=== PATIENT | female | born 1965 | race Caucasian/White ===

== ENCOUNTER 2022-12-13 13:41 | Outpatient (OUT) | payer BC, SELFPAY ==
[2022-12-13 14:20] LABS: Basophils Percent Auto 0.5 % (0.2-2.0); Eosinophils Absolute Auto 0.1 10^3/uL (0.0-0.7); Eosinophils Percent Auto 1.8 % (0.9-7.0); Hematocrit 38.5 % (36.0-48.0); Hemoglobin 13.1 g/dL (12.0-16.0); Immature Granulocytes Abs Auto 0.02 10^3/uL (0.00-0.03); Immature Granulocytes Pct Auto 0.3 % (0.0-0.5); Lymphocytes Absolute Auto 2.2 10^3/uL (1.2-3.8); Lymphocytes Percent Auto 26.9 % (20.5-60.0); Mean Corpuscular Hemoglobin 31.5 pg (26.7-34.0); Mean Corpuscular Volume 92.5 fL (81.0-99.0); Mean Platelet Volume 9.8 fL (9.5-13.5); Monocytes Absolute Auto 0.6 10^3/uL (0.3-0.8); Monocytes Percent Auto 7.9 % (1.7-12.0); Neutrophils Percent Auto 62.6 % (43.0-75.0); Platelet Count 248 10^3/uL (150-450); Red Blood Count 4.16 10^6/uL (4.20-5.40); Red Cell Distribution Width 12.6 % (11.0-15.0)
[2022-12-13 14:48] LABS: Free T4 1.05 ng/dL (0.76-1.46)
[2022-12-13 14:55] LABS: Alanine Aminotransferase 28 U/L (14-59); Albumin Globulin Ratio 1.2; Albumin Level 3.8 g/dL (3.4-5.0); Alkaline Phosphatase 82 U/L (46-116); Anion Gap 10.5; Aspartate Amino Transferase 17 U/L (15-37); BUN Creatinine Ratio 15.5; Bilirubin Total 0.2 mg/dL (0.2-1.0); Calcium 8.7 mg/dL (8.5-10.1); Carbon Dioxide 29.4 mmol/L (21.0-32.0); Chloride 106 mmol/L (98-107); Chol HDL Ratio 4.4; Cholesterol 207 mg/dL (<=200); Estimated GFR (African America >60 (>=60); Estimated GFR (Non-African Ame >60 (>=60); Globulin 3.3 g/dL; Glucose 82 mg/dL (74-106); HDL Cholesterol 47 mg/dL (40-60); Potassium 3.9 mmol/L (3.5-5.1); Sodium 142 mmol/L (136-145); Thyroid Stimulating Hormone 4.375 uIU/mL (0.358-3.740); Total Protein 7.1 g/dL (6.4-8.2); Triglycerides 247 mg/dL (<=150); VLDL CHOLESTEROL 49.4 mg/dL
== END 2022-12-13 13:42 | disposition home or self-care (01) ==
LOC: LAB 13:48
PROVIDERS: PCP Nurse Practitioner; Visit Provider Nurse Practitioner
DX: R00.2 Palpitations (principal); E03.9 Hypothyroidism, unspecified; I10 Essential (primary) hypertension; E78.5 Hyperlipidemia, unspecified
CPT/HCPCS: 36415; 80053; 80061; 84439; 84443; 85025

== ENCOUNTER 2023-02-12 12:23 | Outpatient (OUT) | payer BC, SELFPAY ==
[2023-02-12 13:14] LABS: Free T4 1.06 ng/dL (0.76-1.46)
== END 2023-02-12 12:24 | disposition home or self-care (01) ==
LOC: LAB 12:23
PROVIDERS: PCP Nurse Practitioner; Visit Provider Nurse Practitioner
DX: E03.9 Hypothyroidism, unspecified (principal)
CPT/HCPCS: 36415; 84439; 84443

== ENCOUNTER 2023-02-22 12:23 | Outpatient (OUT) | payer BC, SELFPAY ==
[2023-02-22 13:05] LABS: Influenza Virus A Antigen Negative; Influenza Virus B Antigen Negative; Internal Control Within Normal Limits; Respiratory Syncytial Virus Not Detected (NOT DETECTE); SARS-CoV-2 Ag NEGATIVE (NEGATIVE)
[2023-02-22 13:06] LABS: Internal Control Within Normal Limits
[2023-02-22 16:17] LABS: SARS-CoV-2 NAA NOT DETECTED (NOT DETECTE)
== END 2023-02-22 12:24 | disposition home or self-care (01) ==
LOC: LAB 12:24
PROVIDERS: PCP Nurse Practitioner; Visit Provider Nurse Practitioner
DX: Z20.822 Contact with and (suspected) exposure to COVID-19 (principal); Z11.8 Encounter for screening for other infectious and parasitic diseases
CPT/HCPCS: 87420; 87635; 87798; 87804; 87811

== ENCOUNTER 2023-12-20 06:57 | Outpatient (OUT) | payer BC, SELFPAY ==
--- OUTSIDE RECORDS SUMMARY | 2023-12-20 07:01 | XMS_ITS | CCD ---
Author Organization [facility] JOB COACHING [facility] Care Team Providers Care Supervisor [employer]ting [employer] Sewing Room Name Role Phone REQUEST, IP OCCUPATIONAL THERAPY SERVICE Consult ing Unavailable LISA, JHONATAN Admitting Unavailable JHONATAN GONZALEZ Attending Unavailable PROVIDER, UNKNOWN Attending Unavailable PROVIDER, UNKNOWN Admitting Unavailable DISCHARGE, [facility] Referring Unavailab le PROVIDER, UNKNOWN Attending Unavailable PROVIDER, UNKNOWN Admitting Unavailable ROBERT SANTOYO Referring Unavailable ANISA HOPKINS Referring Unavailable TIMES, YUDY Meléndez Admitting Unavailable PROVIDER, UNKNOWN Attending Unavailable PROVIDER, UNKNOWN Admitting Unavailable PROVIDER, UNKNOWN Attending Unavailable TIMES, YUDY Meléndez Admitting Unavailable TIMES, YUDY Meléndez Attending Unavailable ROBERT SANTOYO Referring Unavailable PROVIDER, UNKNOWN Attending Unavailable PROVIDER, UNKNOWN Admitting Unavailable PROVIDER, UNKNOWN Attending Unavailable PROVIDER, UNKNOWN Admitting Unavailable PROVIDER, UNKNOWN Attending Unavailable PROVIDER, UNKNOWN Admitting Unavailable PROVIDER, UNKNOWN Attending Unavailable PROVIDER, UNKNOWN Admitting Unavailable PATIENT, SELF Referring Unavailable AICHHOLZ, GROUNDSKEEPER SUPERVISOR ANJEL Attending Unavailable AICHHOLZ, GROUNDSKEEPER SUPERVISOR ANJEL Consulting Unavailable AICHHOLZ, GROUNDSKEEPER SUPERVISOR ANJEL Primary Care Unavailable AICHHOLZ, GROUNDSKEEPER SUPERVISOR ANJEL Admitting Unavailable AICHHOLZ, GROUNDSKEEPER SUPERVISOR ANJEL Attending Unavailable AICHHOLZ, GROUNDSKEEPER SUPERVISOR ANJEL Consulting Unavailable AICHHOLZ, GROUNDSKEEPER SUPERVISOR ANJEL Primary Care Unavailable AICHHOLZ, GROUNDSKEEPER SUPERVISOR ANJEL Admitting Unavailable DR BISHNU VILLA V Consulting Unavailable AICHHOLZ, GROUNDSKEEPER SUPERVISOR ANJEL Primary Care Unavailable AICHHOLZ, GROUNDSKEEPER SUPERVISOR ANJEL Admitting Unavailable AICHHOLZ, GROUNDSKEEPER SUPERVISOR ANJEL Attending Unavailable AICHHOLZ, GROUNDSKEEPER SUPERVISOR ANJEL Consulting Unavailable Problems Active Problems Problem Classification Problem Date Documented Da te Episodic/Chronic Disorders of lipid metabolism (4 sources) Hyperlipidemia, unspecified; Translations: [HYPERLIPIDEMIA UNSPECIFIED] Onset: 02-18-2022 Chronic Essential hypertension (4 sources) Essential (primary) hypertension; Translations: [ESSENTIAL PRIMARY HYPERTENSION] Onset: 12-05-2021 Chronic Thyroid disorders (1 source) Hypothyroidism, unspecified; Translations: [HYPOTHYROIDISM UNSPECIFIED] Onset: 12-08-2021 Chronic Past or Other Problems Problem Classification Problem Date Documented Da te Episodic/Chronic Genitourinary symptoms and ill-defined conditions (4 sources) Dysuria; Translations: [DYSURIA] Onset: 10-14-2021 Episodic Results Test Name Value Interpretation Reference Range Facility LIPID PROFILEon 02-18-2022 CHOL-HDL RATIO NORM SEE BELOW Normal [facility] Comment on above: Result Comment: 3.3 - 4.4 LOW RISK 4.4 - 7.1 AVERAGE RISK 7.1 - 11.0 MODERATE RISK >11.0 HIGH RISK Performed By: #### A ST, LIPID, ALT #### [facility] [address], [place] [address] Dr. Tiffanie De Guzman Cholesterol [Mass/Vol] 199 mg/dL Normal <=200 [facility] Comment on above: Performed By: #### A ST, LIPID, ALT #### [facility] [address] [address] [address] Tiffanie De Guzman Cholesterol in HDL [Mass/Vol] 53 mg/dL Normal 40-60 [facility] Comment on above: Performed By: #### A ST, LIPID, ALT #### [facility] [address] [address] [address] Tiffanie De Guzman Cholesterol in LDL [Mass/Vol] 115.2 mg/dL Normal [facility] Comment on above: Performed By: #### A ST, LIPID, ALT #### [facility] [address], [place] [address] Dr. Tiffanie De Guzman Cholesterol.total/C holesterol in HDL [Mass ratio] 3.8 {ratio} Normal [facility] Comment on above: Performed By: #### A ST, LIPID, ALT #### [facility] [address], [place] [address] Dr. Tiffanie De Guzman HDL NORMAL > or = 60 mg/dl - LO W CARDIOVASCULAR RISK <40 mg/dl - HIGH CARDIOVASCULAR RISK Normal [facility] Comment on above: Performed By: #### A ST, LIPID, ALT #### [facility] [address] [id number] Tiffanie De Guzman LDL CALC NORMAL SEE BELOW Normal [facility] Comment on above: Result Comment: <100 mg/dl OPTIMAL 100 - 129 mg/dl NEAR OR ABOVE OPTIMAL 130 - 159 mg/dl BORDERLINE HIGH 160 - 189 mg/dl HIGH >190 mg/dl VERY HIGH Performed By: #### A ST, LIPID, ALT #### [facility] [address] [place] [address] Dr. Tiffanie De Guzman Triglyceride [Mass/Vol] 154 mg/dL Critically high <=150 [facility] Comment on above: Performed By: #### A ST, LIPID, ALT #### [facility] [address] [address] [address] Tiffanie De Guzman VLDL CALC 30.8 mg/dL Normal [facility] Comment on above: Performed By: #### A ST, LIPID, ALT #### [facility] [address] [place] [address] Dr. Tiffanie LEAOTon 02-18-2022 AST [Catalytic activity/Vol] 16 U/L Normal 15-37 [facility] Comment on above: Performed By: #### A ST, LIPID, ALT #### [facility] [address] [place] [address] Dr. [facility]-2022 ALT [Catalytic activity/Vol] 20 U/L Normal 14-59 [facility] Comment on above: Performed By: #### A ST, LIPID, ALT #### [facility] [address] [place] [address] Dr. Tiffanie De Guzman CBC AUTO DIFFon 12-05-2021 BASO # 0.0 103/ul Normal 0.0-0.1 [facility] Comment on above: Performed By: #### C BC #### [facility] [address] [place] [address] Dr. Tiffanie De Guzman Basophils/100 WBC (Bld) 0.6 % Normal 0.2-2.0 [facility] Comment on above: Performed By: #### C BC #### [facility] [address] [place] [address] Dr. Tiffanie De Guzman EO # 0.2 103/ul Normal 0.0-0.7 [facility] Comment on above: Performed By: #### C BC #### [facility] [address] [place] [address] Dr. Tiffanie De Guzman Eosinophils/100 WBC (Bld) 3.4 % Normal 0.9-7.0 [facility] Comment on above: Performed By: #### C BC #### [facility] [address] [place] [address] Dr. Tiffanie De Guzman Erythrocyte distribution width (RBC) [Ratio] 12.4 % Normal 11.0-15.0 [facility] Comment on above: Performed By: #### C BC #### [facility] [address] [place] [address] Dr. Tiffanie De Guzman Hematocrit (Bld) [Volume fraction] 39.8 % Normal 36.0-48.0 [facility] Comment on above: Performed By: #### C BC #### [facility] [address] [place] [address] Dr. Tiffanie De Guzman Hemoglobin (Bld) [Mass/Vol] 13.5 g/dL Normal 12.0-16.0 [facility] Comment on above: Performed By: #### C BC #### [facility] [address] [place] [address] Dr. Tiffanie De Guzman IG # 0.01 10e3/ul Normal 0.00-0.03 [facility] Comment on above: Performed By: #### C BC #### [facility] [address] [place] [address] Dr. Tiffanie De Guzman IG % 0.1 % Normal 0.0-0.5 [facility] Comment on above: Performed By: #### C BC #### [facility] [address] [place] [address] Dr. Tiffanie De Guzman LYMPH # 2.2 103/ul Normal 1.2-3.8 [facility] Comment on above: Performed By: #### C BC #### [facility] [address] [place] [address] Dr. Tiffanie De Guzman Lymphocytes/100 WBC (Bld) 30.2 % Normal 20.5-60.0 [facility] Comment on above: Performed By: #### C BC #### [facility] [address] [place] [address] Dr. Tiffanie De Guzman MANUAL DIFF REQ NO Normal [facility] Comment on above: Performed By: #### C BC #### [facility] [address] [place] [address] Dr. Tiffanie De Guzman MCH (RBC) [Entitic mass] 30.9 pg Normal 26.7-34.0 [facility] Comment on above: Performed By: #### C BC #### [facility] [address] [place] [address] Dr. Tiffanie De Guzman MCHC (RBC) [Mass/Vol] 33.9 g/dL Normal 29.9-35.2 [facility] Comment on above: Performed By: #### C BC #### [facility] [address] [place] [address] Dr. Tiffanie De Guzman MCV (RBC) [Entitic vol] 91.1 fL Normal 81.0-99.0 [facility] Comment on above: Performed By: #### C BC #### [facility] [address] [place] [address] Dr. Tiffanie De Guzman MONO # 0.7 103/ul Normal 0.3-0.8 [facility] Comment on above: Performed By: #### C BC #### [facility] [address] [place] [address] Dr. Tiffanie De Guzman Monocytes/100 WBC (Bld) 9.2 % Normal 1.7-12.0 [facility] Comment on above: Performed By: #### C BC #### [facility] [address] [place] [address] Dr. Tiffanie De Guzman NEUT # 4.1 103/ul Normal 1.4-6.5 [facility] Comment on above: Performed By: #### C BC #### [facility] [address] [place] [address] Dr. Tiffanie De Guzman Neutrophils/100 WBC (Bld) 56.5 % Normal 43.0-75.0 [facility] Comment on above: Performed By: #### C BC #### [facility] [address] [place] [address] Dr. Tiffanie De Guzman Platelet mean volume (Bld) [Entitic vol] 9.5 fL Normal 9.5-13.5 [facility] Comment on above: Performed By: #### C BC #### [facility] [address] [place] [address] Dr. Tiffanie De Guzman PLT 262 103/ul Normal 150-450 [facility] Comment on above: Performed By: #### C BC #### [facility] [address] [place] [address] Dr. Tiffanie De Guzman RBC 4.37 106/ul Normal 4.20-5.40 [facility] Comment on above: Performed By: #### C BC #### [facility] [address] [place] [address] Dr. Tiffanie De Guzman WBC 7.2 103/ul Normal 4.0-11.0 [facility] Comment on above: Performed By: #### C BC #### [facility] [address] [place] [address] Dr. Tiffanie De Guzman FREE T4on 12-05-2021 Free T4 [Mass/Vol] 0.99 ng/dL Normal 0.76-1.46 [facility] Comment on above: Performed By: #### F T4 #### [facility] [address] [place] [address] Dr. Tiffanie De Guzman LIPID PROFILEon 12-05-2021 CHOL-HDL RATIO NORM SEE BELOW Normal [facility] Comment on above: Result Comment: 3.3 - 4.4 LOW RISK 4.4 - 7.1 AVERAGE RISK 7.1 - 11.0 MODERATE RISK >11.0 HIGH RISK Performed By: #### L IPID, CMP, TSH #### [facility] [address] [place] [address] Dr. Tiffanie De Guzman Cholesterol [Mass/Vol] 242 mg/dL Critically high <=200 [facility] Comment on above: Performed By: #### L IPID, CMP, TSH #### [facility] [address] [place] [address] Dr. Tiffanie De Guzman Cholesterol in HDL [Mass/Vol] 53 mg/dL Normal 40-60 [facility] Comment on above: Performed By: #### L IPID, CMP, TSH #### [facility] [address] [address] [address] Tiffanie De Guzman Cholesterol in LDL [Mass/Vol] 164.2 mg/dL Normal [facility] Comment on above: Performed By: #### L IPID, CMP, TSH #### [facility] [address] [address] [address] Tiffanie De Guzman Cholesterol.total/C holesterol in HDL [Mass ratio] 4.6 {ratio} Normal [facility] Comment on above: Performed By: #### L IPID, CMP, TSH #### [facility] [address] [address] [address] Tiffanie De Guzman HDL NORMAL > or = 60 mg/dl - LO W CARDIOVASCULAR RISK <40 mg/dl - HIGH CARDIOVASCULAR RISK Normal [facility] Comment on above: Performed By: #### L IPID, CMP, TSH #### [facility] [address] [address] [address] Tiffanie De Guzman LDL CALC NORMAL SEE BELOW Normal [facility] Comment on above: Result Comment: <100 mg/dl OPTIMAL 100 - 129 mg/dl NEAR OR ABOVE OPTIMAL 130 - 159 mg/dl BORDERLINE HIGH 160 - 189 mg/dl HIGH >190 mg/dl VERY HIGH Performed By: #### L IPID, CMP, TSH #### [facility] [address] [address] [address] Tiffanie De Guzman Triglyceride [Mass/Vol] 124 mg/dL Normal <=150 [facility] Comment on above: Performed By: #### L IPID, CMP, TSH #### [facility] [address] [address] [address] Tiffanie De Guzman VLDL CALC 24.8 mg/dL Normal [facility] Comment on above: Performed By: #### L IPID, CMP, TSH #### [facility] [address] [address] [address] Tiffanie De Guzman PROF 14(COMP METB)on 022 Albumin [Mass/Vol] 3.6 g/dL Normal 3.4-5.0 [facility] Comment on above: Performed By: #### L IPID, CMP, TSH #### [facility] [address] [place] [address] Dr. Tiffanie De Guzman Albumin/Globulin [Mass ratio] 1.1 {ratio} Normal [facility] Comment on above: Performed By: #### L IPID, CMP, TSH #### [facility] [address] [address] [address] Tiffanie De Guzman ALP [Catalytic activity/Vol] 79 U/L Normal 46-116 [facility] Comment on above: Performed By: #### L IPID, CMP, TSH #### [facility] [address] [place] [address] Dr. Tiffanie De Guzman ALT [Catalytic activity/Vol] 26 U/L Normal 14-59 [facility] Comment on above: Performed By: #### L IPID, CMP, TSH #### [facility] [address] [place] [address] Dr. Tiffanie De Guzman Anion gap [Moles/Vol] 10.6 mmol/L Normal [facility] Comment on above: Performed By: #### L IPID, CMP, TSH #### [facility] [address] [place] [address] Dr. Tiffanie De Guzman AST [Catalytic activity/Vol] 13 U/L Critically low 15-37 [facility] Comment on above: Performed By: #### L IPID, CMP, TSH #### [facility] [address] [place] [address] Dr. Tiffanie De Guzman Bilirubin [Mass/Vol] 0.4 mg/dL Normal 0.2-1.0 [facility] Comment on above: Performed By: #### L IPID, CMP, TSH #### [facility] [address] [place] [address] Dr. Tiffanie De Guzman Calcium [Mass/Vol] 8.6 mg/dL Normal 8.5-10.1 [facility] Comment on above: Performed By: #### L IPID, CMP, TSH #### [facility] [address] [address] [address] Tiffanie De Guzman Chloride [Moles/Vol] 108 mmol/L Critically high 98-107 [facility] Comment on above: Performed By: #### L IPID, CMP, TSH #### [facility] [address] [place] [address] Dr. Tiffanie De Guzman CO2 [Moles/Vol] 27.9 mmol/L Normal 21.0-32.0 [facility] Comment on above: Performed By: #### L IPID, CMP, TSH #### [facility] [address] [place] [address] Dr. Tiffanie De Guzman Creatinine [Mass/Vol] 0.88 mg/dL Normal 0.55-1.02 [facility] Comment on above: Performed By: #### L IPID, CMP, TSH #### [facility] [address] [place] [address] Dr. Tiffanie De Guzman EGFR-AF SINGAPOREAN >60 Normal >=60 [facility] Comment on above: Performed By: #### L IPID, CMP, TSH #### [facility] [address] [place] [address] Dr. Tiffanie De Guzman EGFR-NON AF [place]OREAN >60 Normal >=60 [facility] Comment on above: Performed By: #### L IPID, CMP, TSH #### [facility] [address] [place] [address] Dr. Tiffanie De Guzman Globulin (S) [Mass/Vol] 3.4 g/dL Normal [facility] Comment on above: Performed By: #### L IPID, CMP, TSH #### [facility] [address] [place] [address] Dr. Tiffanie De Guzman Glucose [Mass/Vol] 107 mg/dL Critically high 74-106 [facility] Comment on above: Performed By: #### L IPID, CMP, TSH #### [facility] [address] [place] [address] Dr. Tiffanie De Guzman Potassium [Moles/Vol] 4.5 mmol/L Normal 3.5-5.1 [facility] Comment on above: Performed By: #### L IPID, CMP, TSH #### [facility] [address] [address] [address] Tiffanie De Guzman Protein [Mass/Vol] 7.0 g/dL Normal 6.4-8.2 [facility] Comment on above: Performed By: #### L IPID, CMP, TSH #### [facility] [address] [place] [address] Dr. Tiffanie De Guzman Sodium [Moles/Vol] 142 mmol/L Normal 136-145 [facility] Comment on above: Performed By: #### L IPID, CMP, TSH #### [facility] [address] [place] [address] Dr. Tiffanie De Guzman Urea nitrogen [Mass/Vol] 12.0 mg/dL Normal 7.0-18.0 [facility] Comment on above: Performed By: #### L IPID, CMP, TSH #### [facility] [address] [place] [address] Dr. Tiffanie De Guzman Urea nitrogen/Creatinine [Mass ratio] 13.6 mg/mg Normal [facility] Comment on above: Performed By: #### L IPID, CMP, TSH #### [facility] [address] [place] [address] Dr. Tiffanie De Guzman TSHon 12-05-2021 TSH 3.564 uIU/mL Normal 0.358-3.740 [facility] Comment on above: Performed By: #### L IPID, CMP, TSH #### [facility] [address] [place] [address] Dr. Tiffanie De Guzman UA RANDOM W/MICROSCOPICon BACTERIA TRACE Abnormal NONE SEEN [facility] Comment on above: Performed By: #### U AMIC #### [facility] [address] [place] [address] Dr. Tiffanie De Guzman Bilirubin Ql (U) Negative Normal NEGATIVE [facility] Comment on above: Performed By: #### U AMIC #### [facility] [address] [place] [address] Dr. Tiffanie De Guzman CAST NONE SEEN Normal NONE SEEN [facility] Comment on above: Performed By: #### U AMIC #### [facility] [address] [address] [address] Tiffanie De Guzman Clarity (U) CLEAR Normal CLEAR [facility] Comment on above: Performed By: #### U AMIC #### [facility] [address] [address] [address] Tiffanie De Guzman Color (U) LT. YELLOW Normal YELLOW [facility] Comment on above: Performed By: #### U AMIC #### [facility] [address] [address] [address] Tiffanie De Guzman Crystals LM Nom (Urine sed) NONE SEEN Normal NONE SEEN [facility] Comment on above: Performed By: #### U AMIC #### [facility] [address] [place] [address] Dr. Tiffanie De Guzman Epithelial cells LM Ql (Urine sed) FEW Abnormal NONE SEEN /RARE [facility] Comment on above: Performed By: #### U AMIC #### [facility] [address] [address] [address] Tiffanie De Guzman Glucose Ql (U) Negative Normal NEGATIVE [facility] Comment on above: Performed By: #### U AMIC #### [facility] [address] [place] [address] Dr. Tiffanie De Guzman Hemoglobin Ql (U) TRACE-INTACT Abnormal NEGATIVE [facility] Comment on above: Performed By: #### U AMIC #### [facility] [address] [address] [address] Tiffanie De Guzman Ketones Ql (U) Negative Normal NEGATIVE [facility] Comment on above: Performed By: #### U AMIC #### [facility] [address] [address] [address] Tiffanie De Guzman LEUKOCYTES SMALL Abnormal NEGATIVE [facility] Comment on above: Performed By: #### U AMIC #### [facility] [address] [place] [address] Dr. Tiffanie De Guzman MUCOUS NONE SEEN Normal NONE SEEN [facility] Comment on above: Performed By: #### U AMIC #### [facility] [address] [address] [address] Tiffanie De Guzman Nitrite Ql (U) Negative Normal NEGATIVE [facility] Comment on above: Performed By: #### U AMIC #### [facility] [address] [address] [address] Tiffanie De Guzman pH (U) 6.0 [pH] Normal 5-9 [facility] Comment on above: Performed By: #### U AMIC #### [facility] [address] [address] [address] Tiffanie De Guzman RBC 0-2 Normal 0-2 [facility] Comment on above: Performed By: #### U AMIC #### [facility] [address] [place] [address] Dr. Tiffanie De Guzman SPEC GRAVITY 1.010 Normal 1.005-<=1.025 [facility] [facility] Comment on above: Performed By: #### U AMIC #### [facility] [address] [place] [address] Dr. Tiffanie De Guzman UA PROTEIN Negative Normal NEGATIVE/ TRACE [facility] Comment on above: Performed By: #### U AMIC #### [facility] [address] [place] [address] Dr. Tiffanie De Guzman Urobilinogen Qn (U) 0.2 {Madison'U}/dL Normal 0.2 - 1. 0 [facility] Comment on above: Performed By: #### U AMIC #### [facility] [address] [place] [address] Dr. Tiffanie De Guzman WBC 0-2 Abnormal NONE SEEN [facility] Comment on above: Performed By: #### U AMIC #### [facility] [address] [place] [address] Dr. Tiffanie De Guzman XR KUB 1 VIEWon 10-15-2021 XR KUB 1 VIEW EXAMINATION: XR KUB 1 VIEW HISTORY: Dysuria COMPARISON: No relevant comparison available. FINDINGS: KIDNEY/URETER - RIGHT: No visible renal or ureteral calcifications. KIDNEY/URETER - LEFT: No visible renal or ureteral calcifications. PELVIS: No visible ureteral calcifications. Any visible calcifications favor phleboliths. BOWEL: No abnormal dilation or deviation. BONES: No acute abnormality. OTHER: Negative. No abnormal gaseous collections. IMPRESSION: No definite urinary tract calculi Electronically authenticated by: BISHNU VILLA Date: 2021-10-15 06:54 Normal The [facility] Progress Noteson 12-29-2020 Chemistry Department Chair Authentication Interface Message Text Yudy Cardona MD Ms. Buckner is a 55 y/o female who is s/p admission from 11/19 to 11/21/2020 for perforated diverticulitis requiring IR drainage on 11/20/2020 for a 6 cm abscess. Her accompanies her to this visit. She continues to have left sided discomfort. She denies fever or chills. Her appetite is less than normal and she is always tired. Physical exam: BP 149/77 Pulse 61 Wt 230 lb (104.3 kg) BMI 39.48 kg/m??? Abdomen: soft, tender in the LLQ without guarding. Drain has stool in it. Assessment: diverticular abscess Plan: I reviewed CT images and colon anatomy with the patient findings and pathology report with the patient. I recommended a laparoscopic assisted sigmoid colectomy. Using pictures I reviewed the colon anatomy, location of the diverticular disease and surgical resection margins. I discussed the risk of anastomotic leak requiring temporary ileostomy, takeback for bleeding, DVT, PE, wound infection, bowel obstruction, and incisional hernia. The patient's questions were answered. The patient will have a golytely prep with oral antibiotics. I also discussed the possibility of a temporary loop ileostomy. Dr. Gonzalez will perform the surgery on 12/09/2020. Yudy Cardona MD Normal [facility] Progress Noteson 12-26-2020 Chemistry Department Chair Authentication Interface Message Text [facility] Angelica Buckner is a 55 year old female here for follow up of diverticulitis, sigmoid colectomy Interval History: Doing well. Tolerating PO, still sticking to soft diet. BM 1-2 times a day, soft, no blood. Was taking stool softeners but stopped. Some incisional pain, not taking any pain medicine. Past Medical History: Diagnosis Date * Diverticulitis Drain placed * HTN (hypertension) * Hypothyroidism Past Surgical History: Procedure Laterality Date * CYSTOSCOPY, RETROGRADE PYLEOGRAM, STENT INSERTION OR REMOVAL 12/09/2020 Procedure: CYSTOSCOPY, STENT INSERTION; Surgeon: Benigno Wall MD; Location: PERIOPERATIVE SERVICES; Service: Urology * HERNIA REPAIR 2014 triple surgery * LAPAROSCOPY, SIGMOID OR LEFT HEMICOLECTOMY Left 12/09/2020 Procedure: LAPAROSCOPIC CONVERTED TO OPEN SIGMOID COLECTOMY; LAPAROSCOPIC SPLENIC FLEXURE MOBILIZATION; LAPAROSCOPIC LYSIS OF ADHESIONS 45 MINUTES; RIGID PROCTOSCOPY; Surgeon: Jhonatan Gonzalez MD; Location: PERIOPERATIVE SERVICES; Service: General Current Outpatient Medications on File Prior to Visit Medication Sig Dispense Refill * docusate sodium (Colace) 100 MG capsule Take 1 Capsule by mouth 2 times daily. 30 Capsule 0 * acetaminophen (TYLENOL) 500 MG tablet Take 2 Tablets by mouth every 8 hours. 30 Tablet 0 * gabapentin (NEURONTIN) 300 MG capsule Take 1 Capsule by mouth 3 times daily for 5 days. 15 Capsule 0 * levothyroxine (SYNTHROID) 75 MCG tablet Take 75 mcg by mouth daily. * metoprolol (TOPROL-XL) 50 mg XL tablet Take 75 mg by mouth daily. * diazePAM (VALIUM) 10 MG tablet take 1/2 to 1 tablet by mouth once daily if needed for anxiety No current facility-administered medications on file prior to visit. Allergies: No Known Allergies No family history of colorectal cancer, Crohn's disease or ulcerative colitis Social History Socioeconomic History * Marital status: Spouse name: Not on file * Number of children: Not on file * Years of education: Not on file * Highest education level: Not on file Tobacco Use * Smoking status: Former Smoker Packs/day: 1.00 Years: 25.00 Pack years: 25.00 Types: Cigarettes Quit date: 2014 Years since quittin.7 * Smokeless tobacco: Never Used Substance and Sexual Activity * Alcohol use: Not Currently * Drug use: Not Currently Social Determinants of Health Financial Resource Strain: * Difficulty of Paying Living Expenses: Food Insecurity: * Worried About Running Out of Food in the Last Year: * Ran Out of Food in the Last Year: Transportation Needs: * Lack of Transportation (Medical): * Lack of Transportation (Non-Medical): Physical Activity: * Days of Exercise per Week: * Minutes of Exercise per Session: Stress: * Feeling of Stress : Social Connections: * Frequency of Communication with Friends and Family: * Frequency of Social Gatherings with Friends and Family: * Attends [employer] Services: * Active Member of Clubs or Organizations: * Attends Club or Organization Meetings: * Marital Status: Intimate Partner Violence: * Fear of Current or Ex-Partner: * Emotionally Abused: * Physically Abused: * Sexually Abused: Review of Systems: A complete review of systems was performed and is negative except as noted in the HPI Physical Examination: Vitals Recorded in This Encounter 12/26/2020 1307 Weight: 225 lb 1 oz (102.1 kg) Height: 5' 3 (1.6 m) Pain Score: 0 BMI: 39.87 General: No distress, awake Skin: No jaundice or rashes HEENT: Normocephalic, mucous membranes moist Lymph: No cervical or supraclavicular lymphadenopathy Lungs: Normal work of breathing Heart: Regular rate and rhythm Abdomen: Soft, nontender, nondistended. No masses. Well healing incisions without signs of infection Extremities: Warm, no edema Neuro: Grossly intact Assessment: Angelica Buckner is a 55 year old female with smoldering diverticulitis with chronic abscess cavity s/p lap converted to open sigmoid colectomy with primary anastomosis. Recovering well without apparent complication. Ok to start liberalizing diet as tolerated. Two more weeks of light activity, then ok to resume as tolerated. Needs colonoscopy in 1-2 months, she would like to do this closer to home and will discuss with PCP. Follow up with me as needed or if issues Plan: - Diet as tolerated. Ok to start increasing activity over next 2 weeks. - Needs colonoscopy in ~1-2 months. She will discuss with PCP - Follow up with me as needed Total length of time 20 (minutes) of the encounter and more than 50% was spent counseling the patient. Jhonatan Gonzalez MD 12/26/20 1:08 PM Normal [facility] Chemistry Department Chair Authentication Interface Message Text Patient was identified by name and date of . Keshia Ashby Patient at risk for falls:No Falls Risk protocol implemented: No Normal [facility] BASIC METABOLIC PANELon 11-20 Anion gap [Moles/Vol] 12 mmol/L Normal 5-13 [facility] Comment on above: Performed By: #### P T, APTT #### [facility] [address] [place] [address], [id number] Calcium [Mass/Vol] 8.3 mg/dL Low 8.4-10.4 [facility] Comment on above: Performed By: #### P T, APTT #### [facility] [address] [place] [address], Chloride [Moles/Vol] 105 mmol/L Normal 97-111 [facility] Comment on above: Performed By: #### P T, APTT #### [facility] [address] [place] [address], CO2 [Moles/Vol] 27 mmol/L Normal 21-30 The [facility] Comment on above: Performed By: #### P T, APTT #### [facility] [address] [place] [address], Creatinine [Mass/Vol] 0.82 mg/dL Normal 0.50-1.10 [facility] Comment on above: Performed By: #### P T, APTT #### [facility] [address] [place] [address], ESTIMATED GFR (CKD-EPI) 80 mL/min/1.73sqm Normal >=60 [facility] Comment on above: Performed By: #### P T, APTT #### [facility] [address] [place] [address], Glucose [Mass/Vol] 100 mg/dL Normal 68-110 [facility] Comment on above: Performed By: #### P T, APTT #### [facility] [address] [place] [address], Potassium [Moles/Vol] 3.9 mmol/L Normal 3.3-5.3 [facility] Comment on above: Performed By: #### P T, APTT #### [facility] [address] [place] [address], Sodium [Moles/Vol] 140 mmol/L Normal 135-148 The [facility] Comment on above: Performed By: #### P T, APTT #### [facility] [address] [place] [address], Urea nitrogen [Mass/Vol] 10 mg/dL Normal 8-22 The [facility] Comment on above: Performed By: #### P T, APTT #### [facility] [address] [place] [address], COMPLETE BLOOD COUNTon 12-14 Erythrocyte distribution width (RBC) [Ratio] 13.6 % Normal 11.5-14.5 [facility] Comment on above: Performed By: #### P T, APTT #### [facility] [address] [place] [address], Hematocrit (Bld) [Volume fraction] 30.2 % Low 36.0-46.0 [facility] Comment on above: Performed By: #### P T, APTT #### [facility] [address] [place] [address], Hemoglobin (Bld) [Mass/Vol] 10.3 g/dL Low 12.0-15.0 [facility] Comment on above: Performed By: #### P T, APTT #### [facility] [address] [place] [address], MCH (RBC) [Entitic mass] 30.6 pg Normal 26.0-34.0 [facility] Comment on above: Performed By: #### P T, APTT #### [facility] [address] [place] [address], MCHC (RBC) [Mass/Vol] 34.1 g/dL Normal 32.0-35.9 [facility] Comment on above: Performed By: #### P T, APTT #### [facility] [address] [place] [address], MCV (RBC) [Entitic vol] 90 fL Normal 80-100 The [facility] Comment on above: Performed By: #### P T, APTT #### [facility] [address] [place] [address], Platelet mean volume (Bld) [Entitic vol] 7.7 fL Normal 7.5-11.2 The [facility] Comment on above: Performed By: #### P T, APTT #### [facility] [address] [place] [address], Platelets (Bld) [#/Vol] 293 10*3/uL Normal 150-400 The [facility] Comment on above: Performed By: #### P T, APTT #### [facility] [address], [place], RBC (Bld) [#/Vol] 3.36 10*6/uL Low 4.00-5.20 [facility] Comment on above: Performed By: #### P T, APTT #### [facility] [address], [place], WBC (Bld) [#/Vol] 5.8 10*3/uL Normal 4.5-11.5 The [facility] Comment on above: Performed By: #### P T, APTT #### [facility] [address], [place], Care Plan Noteon 12-14-2020 Chemistry Department Chair Authentication Interface Message Text Problem: Routine Care: Goal: Patient care will be managed and maintained throughout hospital stay per unit specific routine care procedure Outcome: Completed Problem: Acute Pain: Goal: Ability to identify pain intensity on a pain scale and rate it consistently will be achieved and maintained Outcome: Completed Goal: Understanding of proper administration and use of medicines will be achieved Outcome: Completed Goal: Acceptable level of pain which allows the patient to achieve functional outcome goals Outcome: Completed Goal: Ability to identify factors that manage or decrease pain will be achieved Outcome: Completed Problem: Altered Elimination: Goal: Establishment of normal bowel function will be achieved and maintained Outcome: Completed Goal: Establishment of individualized bowel routine will be obtained Outcome: Completed Goal: Establishment of normal urinary function will be acheived and maintained Outcome: Completed Goal: Establishment of individualized urinary routine Outcome: Completed Problem: Altered Nutrition: Goal: Achieve developmentally appropriate nutritional intake as clinically indicated Outcome: Completed Goal: Attain/Maintain Optimal Nutritional Status Outcome: Completed Goal: Ability to chew and swallow food without choking will improve Outcome: Completed Goal: Demonstrates progression toward an optimal weight Outcome: Completed Problem: Risk for Infection: Goal: Risk for infection will be reduced Outcome: Completed Problem: Impaired Skin Integrity: Goal: Acheive wound healing without signs and symptoms of infection Outcome: Completed Goal: Skin integrity will improve and/or be maintained Outcome: Completed Problem: VTE Prophylaxis: Goal: Will be free of DVT Outcome: Completed Problem: Safety: Goal: Patient will remain free of falls during hospital stay Outcome: Completed Goal: Free from injury during hospitalization Outcome: Completed Normal [facility] Chemistry Department Chair Authentication Interface Message Text Problem: Routine Care: Goal: Patient care will be managed and maintained throughout hospital stay per unit specific routine care procedure Outcome: Progressing Problem: Acute Pain: Goal: Ability to identify pain intensity on a pain scale and rate it consistently will be achieved and maintained Outcome: Progressing Goal: Understanding of proper administration and use of medicines will be achieved Outcome: Progressing Goal: Acceptable level of pain which allows the patient to achieve functional outcome goals Outcome: Progressing Goal: Ability to identify factors that manage or decrease pain will be achieved Outcome: Progressing Problem: Altered Elimination: Goal: Establishment of normal bowel function will be achieved and maintained Outcome: Progressing Goal: Establishment of individualized bowel routine will be obtained Outcome: Progressing Goal: Establishment of normal urinary function will be acheived and maintained Outcome: Progressing Goal: Establishment of individualized urinary routine Outcome: Progressing Problem: Altered Nutrition: Goal: Achieve developmentally appropriate nutritional intake as clinically indicated Outcome: Progressing Goal: Attain/Maintain Optimal Nutritional Status Outcome: Progressing Goal: Ability to chew and swallow food without choking will improve Outcome: Progressing Goal: Demonstrates progression toward an optimal weight Outcome: Progressing Problem: Risk for Infection: Goal: Risk for infection will be reduced Outcome: Progressing Problem: Impaired Skin Integrity: Goal: Acheive wound healing without signs and symptoms of infection Outcome: Progressing Goal: Skin integrity will improve and/or be maintained Outcome: Progressing Problem: VTE Prophylaxis: Goal: Will be free of DVT Outcome: Progressing Problem: Safety: Goal: Patient will remain free of falls during hospital stay Outcome: Progressing Goal: Free from injury during hospitalization Outcome: Progressing Normal [facility] MAGNESIUMon 12-14-2020 Magnesium [Mass/Vol] 1.9 mg/dL Normal 1.6-2.8 [facility] Comment on above: Performed By: #### P T, APTT #### [facility] [address] [place] [address], [id number] Progress Noteson 12-14-2020 Chemistry Department Chair Authentication Interface Message Text Attestation signed by Jhonatan Gonzalez MD at 12/15/2020 8:27 AM Attending Physician Note: I personally saw and evaluated the patient. I personally obtained the reese and critical portions of the history and physical exam on the date of this note and have no additions or changes to the documented history and physical exam except as detailed below. I discussed the patient with the team earlier in the day. The plan as written in the PA's note reflects the plan formulated by me and discussed with the PA and the team. Home today Aditya Gonzalez MD Colorectal Surgery [facility] PROGRESS NOTE Interval history/Events: ??? NAEON ??? States she feels well overall and is eager to go home ??? Pain well-controlled ??? Denies N/V, tolerating GI soft diet well. ??? + flatus, + BMs ??? Voiding without difficulty ??? Ambulating ??? Using IS ??? KAMI drain output 190cc yesterday (from 225cc Tuesday) Objective: Tmax (24 hours): 98.5 ???F (36.9 ???C) Pulse Av.3 Min: 62 Max: 72 Systolic (24hrs), Av , Min:105 , Max:149 Diastolic (24hrs), Av, Min:55, Max:83 SpO2 Av.3 % Min: 97 % Max: 98 % Resp Av Min: 18 Max: 18 Intake/Output Summary (Last 24 hours) at 12/14/2020 0939 Last data filed at 12/14/2020 0808 Gross per 24 hour Intake 1420 ml Output 3250 ml Net -1830 ml Physical Exam: Gen: NAD, Alert and oriented, resting comfortably in bed Pulm: Non labored breathing on RA, no conversational dyspnea Heart: Regular rate per chart Abd: Soft, ND, appropriate mild incisional tenderness, incision c/d/i. R KAMI with serosanguinous output. Ext: Warm and well perfused, No edema, SCDs in place Labs: CBC/PT/INR WBC RBC Hgb Hct MCV RDW Plt PT aPTT INR 12/14/20 0001 5.8 3.36 10.3 30.2 90 13.6 293 12/13/20 0023 6.5 3.34 10.3 30.3 91 14.0 242 12/12/20 0005 7.7 3.22 9.7 28.8 89 13.6 233 Basic Metabolic Panel Na K Cl CO2 Gap Glu BUN Cr Ca Mg PO4 12/14/20 0001 1.9 12/14/20 0001 140 3.9 105 27 12 100 10 0.82 8.3 12/13/20 0023 1.9 12/13/20 0023 141 4.0 109 24 12 90 13 1.24 8.1 12/12/20 0003 2.1 12/12/20 0003 136 4.0 104 25 11 99 15 1.28 8.1 Studies/imaging: No new studies to be reviewed at this time. ----- Medications: Scheduled * nystatin 2x Daily * cyclobenzaprine 10 mg 3x Daily * gabapentin 300 mg 3x Daily * lidocaine 1 Patch Every 24 hours * levothyroxine 75 mcg Daily * metoprolol 75 mg Daily * acetaminophen 1,000 mg q6h * enoxaparin 40 mg Daily * scopolamine 1.5 mg Q72H PRN * oxyCODONE 5 mg Q6H PRN Or * oxyCODONE 10 mg Q6H PRN * ondansetron 4 mg Q4H PRN * naloxone 0.4 mg PRN IV Assessment: Ms. Buckner is a 55yo female who is POD#3???s/p???laparosc opic converted to open sigmoidectomy, CASIMIRO, and cystoscopy with b/l ureteral stent placement. Patient recovering as expected.??? Plan: Feeding: GI soft diet Analgesia: cont PO oxycodone 5/10 q6. Flexeril, gabapentin for pain control. D/c Iv dilaudid Volume: HLIV, trend renal function OT/PT: encourage ambulation, OOB Respiratory: Incentive Spirometry x 10 hour Embolic Prophylaxis: OOB and ambulation, Lovenox and SCDs Tubes AND Drains: continue KAMI drain Heart: Monitor vital signs Drains: DC right KAMI drain today Dispo: Discharge home today Patient was seen with chief resident Dr. Garber and d/w Attending Surgeon Dr. Gonzalez. Angelique Kimbrough PA-C General Surgery Normal [facility] BASIC METABOLIC PANELon 09-2 -2020 Anion gap [Moles/Vol] 12 mmol/L Normal 5-13 The [facility] Comment on above: Performed By: #### P T, APTT #### [facility] [address] [place] [address], Calcium [Mass/Vol] 8.1 mg/dL Low 8.4-10.4 The [facility] Comment on above: Performed By: #### P T, APTT #### [facility] [address] [place] [address], Chloride [Moles/Vol] 109 mmol/L Normal 97-111 The [facility] Comment on above: Performed By: #### P T, APTT #### [facility] [address] [place] [address], CO2 [Moles/Vol] 24 mmol/L Normal 21-30 The [facility] Comment on above: Performed By: #### P T, APTT #### [facility] [address] [place] [address], Creatinine [Mass/Vol] 1.24 mg/dL High 0.50-1.10 The [facility] Comment on above: Performed By: #### P T, APTT #### [facility] [address] [place] [address], ESTIMATED GFR (CKD-EPI) 49 mL/min/1.73sqm Low >=60 The [facility] Comment on above: Performed By: #### P T, APTT #### [facility] [address] [place] [address], Glucose [Mass/Vol] 90 mg/dL Normal 68-110 The [facility] Comment on above: Performed By: #### P T, APTT #### [facility] [address] [place] [address], Potassium [Moles/Vol] 4.0 mmol/L Normal 3.3-5.3 The [facility] Comment on above: Performed By: #### P T, APTT #### [facility] [address] [place] [address], Sodium [Moles/Vol] 141 mmol/L Normal 135-148 [facility] Comment on above: Performed By: #### P T, APTT #### [facility] [address] [place] [address], Urea nitrogen [Mass/Vol] 13 mg/dL Normal 8-22 The [facility] Comment on above: Performed By: #### P T, APTT #### [facility] [address] [place] [address], COMPLETE BLOOD COUNTon 12-13 Erythrocyte distribution width (RBC) [Ratio] 14.0 % Normal 11.5-14.5 The [facility] Comment on above: Performed By: #### P T, APTT #### [facility] [address] [place] [address], Hematocrit (Bld) [Volume fraction] 30.3 % Low 36.0-46.0 The [facility] Comment on above: Performed By: #### P T, APTT #### [facility] [address] [place] [address], Hemoglobin (Bld) [Mass/Vol] 10.3 g/dL Low 12.0-15.0 The [facility] Comment on above: Performed By: #### P T, APTT #### [facility] [address] [place] [address], MCH (RBC) [Entitic mass] 30.9 pg Normal 26.0-34.0 The [facility] Comment on above: Performed By: #### P T, APTT #### [facility] [address] [place] [address], MCHC (RBC) [Mass/Vol] 34.1 g/dL Normal 32.0-35.9 The [facility] Comment on above: Performed By: #### P T, APTT #### [facility] [address], [place], MCV (RBC) [Entitic vol] 91 fL Normal 80-100 The [facility] Comment on above: Performed By: #### P T, APTT #### [facility] [address], [place], Platelet mean volume (Bld) [Entitic vol] 7.7 fL Normal 7.5-11.2 The [facility] Comment on above: Performed By: #### P T, APTT #### [facility] [address], [place], Platelets (Bld) [#/Vol] 242 10*3/uL Normal 150-400 The [facility] Comment on above: Performed By: #### P T, APTT #### [facility] [address], [place], RBC (Bld) [#/Vol] 3.34 10*6/uL Low 4.00-5.20 The [facility] Comment on above: Performed By: #### P T, APTT #### [facility] [address], [place], WBC (Bld) [#/Vol] 6.5 10*3/uL Normal 4.5-11.5 [facility] Comment on above: Performed By: #### P T, APTT #### S PATHOLOGY LABORATORY [address], [place], Care Plan Noteon 12-13-2020 Chemistry Department Chair Authentication Interface Message Text Problem: Routine Care: Goal: Patient care will be managed and maintained throughout hospital stay per unit specific routine care procedure Outcome: Progressing Problem: Acute Pain: Goal: Ability to identify pain intensity on a pain scale and rate it consistently will be achieved and maintained Outcome: Progressing Goal: Understanding of proper administration and use of medicines will be achieved Outcome: Progressing Goal: Acceptable level of pain which allows the patient to achieve functional outcome goals Outcome: Progressing Goal: Ability to identify factors that manage or decrease pain will be achieved Outcome: Progressing Problem: Altered Elimination: Goal: Establishment of normal bowel function will be achieved and maintained Outcome: Progressing Goal: Establishment of individualized bowel routine will be obtained Outcome: Progressing Goal: Establishment of normal urinary function will be acheived and maintained Outcome: Progressing Goal: Establishment of individualized urinary routine Outcome: Progressing Problem: Altered Nutrition: Goal: Achieve developmentally appropriate nutritional intake as clinically indicated Outcome: Progressing Goal: Attain/Maintain Optimal Nutritional Status Outcome: Progressing Goal: Ability to chew and swallow food without choking will improve Outcome: Progressing Goal: Demonstrates progression toward an optimal weight Outcome: Progressing Problem: Risk for Infection: Goal: Risk for infection will be reduced Outcome: Progressing Problem: Impaired Skin Integrity: Goal: Acheive wound healing without signs and symptoms of infection Outcome: Progressing Goal: Skin integrity will improve and/or be maintained Outcome: Progressing Problem: VTE Prophylaxis: Goal: Will be free of DVT Outcome: Progressing Problem: Safety: Goal: Patient will remain free of falls during hospital stay Outcome: Progressing Goal: Free from injury during hospitalization Outcome: Progressing Normal [facility] MAGNESIUMon 12-13-2020 Magnesium [Mass/Vol] 1.9 mg/dL Normal 1.6-2.8 [facility] Comment on above: Performed By: #### P T, APTT #### [facility] [address] [place] [address], [phone] Progress Noteson 12-13-2020 Chemistry Department Chair Authentication Interface Message Text Attestation signed by Jhonatan Gonzalez MD at 12/15/2020 8:26 AM Teaching Physician Note: I saw and evaluated the patient. I personally obtained the reese and critical portions of the history and physical exam on the date of this note. I reviewed the resident's documentation and discussed the patient with the resident. I agree with the resident's medical decision making as documented in the resident's note. Doing well. Home tomorrow if doing well. Aditya Gonzalez MD Colorectal Surgery GREEN SURGERY PROGRESS NOTE Interval history/Events: ??? NAEON ??? Pain improving, adequately controlled. ??? Ambulating with no issues ??? Tolerating GIS, no nausea/vomiting ??? + flatus + bowel movements ??? Voiding post hanson removal ??? Using IS Objective: Tmax (24 hours): 98.5 ???F (36.9 ???C) Pulse Av Min: 67 Max: 72 Systolic (24hrs), Av , Min:143 , Max:151 Diastolic (24hrs), Av, Min:55, Max:59 SpO2 Av % Min: 95 % Max: 97 % Resp Av Min: 18 Max: 18 Intake/Output Summary (Last 24 hours) at 12/13/2020 1412 Last data filed at 12/13/2020 1300 Gross per 24 hour Intake 1220 ml Output 2995 ml Net -1775 ml Physical Exam: Gen: NAD, Alert and oriented Pulm: Non labored breathing on RA, no conversational dyspnea Heart: Regular rate per chart Abd: Soft, ND, appropriate mild incisional tenderness. R KAMI drain with ss output. Abdominal binder in place. Mild erythema and warmth to touch in lower midline. Ext: Warm and well perfused, No edema, SCDs in place Labs: CBC/PT/INR WBC RBC Hgb Hct MCV RDW Plt PT aPTT INR 12/13/20 0023 6.5 3.34 10.3 30.3 91 14.0 242 12/12/20 0005 7.7 3.22 9.7 28.8 89 13.6 233 12/11/20 0018 9.8 3.34 10.4 29.8 89 13.7 242 Basic Metabolic Panel Na K Cl CO2 Gap Glu BUN Cr Ca Mg PO4 12/13/20 0023 1.9 12/13/20 0023 141 4.0 109 24 12 90 13 1.24 8.1 12/12/20 0003 2.1 12/12/20 0003 136 4.0 104 25 11 99 15 1.28 8.1 12/11/20 0018 1.8 12/11/20 0018 136 4.3 104 26 10 109 16 1.24 8.3 Studies/imaging: No new studies to be reviewed. ??? ----- Medications: Scheduled * nystatin 2x Daily * cyclobenzaprine 10 mg 3x Daily * gabapentin 300 mg 3x Daily * lidocaine 1 Patch Every 24 hours * levothyroxine 75 mcg Daily * metoprolol 75 mg Daily * acetaminophen 1,000 mg q6h * enoxaparin 40 mg Daily * scopolamine 1.5 mg Q72H PRN * oxyCODONE 5 mg Q4H PRN Or * oxyCODONE 10 mg Q4H PRN * HYDROmorphone HCl PF 0.2 mg Q3H PRN * ondansetron 4 mg Q4H PRN * naloxone 0.4 mg PRN IV Assessment: Ms. Buckner is a 55yo female who is POD#3 s/p???laparoscopic converted to open sigmoidectomy, CASIMIRO, and cystoscopy with b/l ureteral stent placement. Patient recovering as expected.??? Plan: Feeding: GI soft diet Analgesia: cont PO oxycodone 5/10 q6. Flexeril, gabapentin for pain control. D/c Iv dilaudid Volume: HLIV, trend renal function OT/PT: encourage ambulation, OOB Respiratory: Incentive Spirometry x 10 hour Embolic Prophylaxis: OOB and ambulation, Lovenox and SCDs Tubes AND Drains: continue KAMI drain Heart: Monitor vital signs Dispo: Continue on RNF, possible discharge 12/14 Patient d/w Attending Surgeon Dr. Gonzalez. Colleen Slater MD General Surgery Normal [facility] BASIC METABOLIC PANELon 11-20 Anion gap [Moles/Vol] 11 mmol/L Normal 5-13 [facility] Comment on above: Performed By: #### P T, APTT #### [facility] [address] [place], [phone] Calcium [Mass/Vol] 8.1 mg/dL Low 8.4-10.4 [facility] Comment on above: Performed By: #### P T, APTT #### [facility] [address], [place], Chloride [Moles/Vol] 104 mmol/L Normal 97-111 [facility] Comment on above: Performed By: #### P T, APTT #### S [facility] [address] [place] [address], CO2 [Moles/Vol] 25 mmol/L Normal 21-30 The [facility] Comment on above: Performed By: #### P T, APTT #### S PATH[facility] [address] [place] [address], Creatinine [Mass/Vol] 1.28 mg/dL High 0.50-1.10 [facility] Comment on above: Performed By: #### P T, APTT #### [facility] PATH[facility]AT[facility] [address] [place] [address], ESTIMATED GFR (CKD-EPI) 47 mL/min/1.73sqm Low >=60 The [facility] Comment on above: Performed By: #### P T, APTT #### S [facility] LAB[facility]ATORY [address] [place] [address], Glucose [Mass/Vol] 99 mg/dL Normal 68-110 [facility] Comment on above: Performed By: #### P T, APTT #### [facility] PATH[facility] [address] [place] [address], Potassium [Moles/Vol] 4.0 mmol/L Normal 3.3-5.3 [facility] Comment on above: Performed By: #### P T, APTT #### [facility] [address] [place] [address], Sodium [Moles/Vol] 136 mmol/L Normal 135-148 [facility] Comment on above: Performed By: #### P T, APTT #### [facility] [address] [place] [address], Urea nitrogen [Mass/Vol] 15 mg/dL Normal 8-22 [facility] Comment on above: Performed By: #### P T, APTT #### S [facility] LAB[facility] [address] [place] [address], COMPLETE BLOOD COUNTon 09-24 -2021 Erythrocyte distribution width (RBC) [Ratio] 13.6 % Normal 11.5-14.5 [facility] Comment on above: Performed By: #### C BC ####[facility] PATHOLOGY [id number] [place], [place], Hematocrit (Bld) [Volume fraction] 28.8 % Low 36.0-46.0 [facility] Comment on above: Performed By: #### C BC ####S PATHOLOGY [id number] [place] [address], Hemoglobin (Bld) [Mass/Vol] 9.7 g/dL Low 12.0-15.0 [facility] Comment on above: Performed By: #### C BC ####[facility] PATHOLOGY [id number] [place] [address], MCH (RBC) [Entitic mass] 30.0 pg Normal 26.0-34.0 [facility] Comment on above: Performed By: #### C BC ####[facility] PATHOLOGY [id number] [place] [address], MCHC (RBC) [Mass/Vol] 33.6 g/dL Normal 32.0-35.9 [facility] Comment on above: Performed By: #### C BC ####[facility] PATHOLOGY [id number] [place] [address], MCV (RBC) [Entitic vol] 89 fL Normal 80-100 The [facility] Comment on above: Performed By: #### C BC ####[facility] PATHOLOGY [id number] [place] [address], Platelet mean volume (Bld) [Entitic vol] 7.6 fL Normal 7.5-11.2 [facility] Comment on above: Performed By: #### C BC ####[facility] PATHOLOGY [id number] [place] [address], Platelets (Bld) [#/Vol] 233 10*3/uL Normal 150-400 [facility] Comment on above: Performed By: #### C BC ####[facility] PATHOLOGY [id number] [place] [address], RBC (Bld) [#/Vol] 3.22 10*6/uL Low 4.00-5.20 The [facility] Comment on above: Performed By: #### C BC ####[facility] [id number] [place], [place], WBC (Bld) [#/Vol] 7.7 10*3/uL Normal 4.5-11.5 The [facility] Comment on above: Performed By: #### C BC ####[facility] [id number] [place], [place], Care Plan Noteon 12-12-2020 Chemistry Department Chair Authentication Interface Message Text Problem: Routine Care: Goal: Patient care will be managed and maintained throughout hospital stay per unit specific routine care procedure Outcome: Progressing Problem: Acute Pain: Goal: Ability to identify pain intensity on a pain scale and rate it consistently will be achieved and maintained Outcome: Progressing Goal: Understanding of proper administration and use of medicines will be achieved Outcome: Progressing Goal: Acceptable level of pain which allows the patient to achieve functional outcome goals Outcome: Progressing Goal: Ability to identify factors that manage or decrease pain will be achieved Outcome: Progressing Problem: Altered Elimination: Goal: Establishment of normal bowel function will be achieved and maintained Outcome: Progressing Goal: Establishment of individualized bowel routine will be obtained Outcome: Progressing Goal: Establishment of normal urinary function will be acheived and maintained Outcome: Progressing Goal: Establishment of individualized urinary routine Outcome: Progressing Problem: Altered Nutrition: Goal: Achieve developmentally appropriate nutritional intake as clinically indicated Outcome: Progressing Goal: Attain/Maintain Optimal Nutritional Status Outcome: Progressing Goal: Ability to chew and swallow food without choking will improve Outcome: Progressing Goal: Demonstrates progression toward an optimal weight Outcome: Progressing Problem: Risk for Infection: Goal: Risk for infection will be reduced Outcome: Progressing Problem: Impaired Skin Integrity: Goal: Acheive wound healing without signs and symptoms of infection Outcome: Progressing Goal: Skin integrity will improve and/or be maintained Outcome: Progressing Problem: VTE Prophylaxis: Goal: Will be free of DVT Outcome: Progressing Problem: Safety: Goal: Patient will remain free of falls during hospital stay Outcome: Progressing Goal: Free from injury during hospitalization Outcome: Progressing Normal [facility] MAGNESIUMon 12-12-2020 Magnesium [Mass/Vol] 2.1 mg/dL Normal 1.6-2.8 [facility] Comment on above: Performed By: #### C #### [facility] [address] [place] [address], [phone] Progress Noteson 12-12-2020 Chemistry Department Chair Authentication Interface Message Text Attestation signed by Jhonatan Gonzalez MD at 12/15/2020 8:27 AM Attending Physician Note: I personally saw and evaluated the patient. I personally obtained the reese and critical portions of the history and physical exam on the date of this note and have no additions or changes to the documented history and physical exam except as detailed below. I discussed the patient with the team earlier in the day. The plan as written in the PA's note reflects the plan formulated by me and discussed with the PA and the team. Doing well. Diet as tolerated. Hanson out. Aditya Gonzalez MD Colorectal Surgery GREEN SURGERY PROGRESS NOTE Interval history/Events: ??? NAEON ??? Pain adequately controlled. States the abdominal binder has helped with her pain. ??? Denies N/V, tolerating CLD well ??? - flatus, - BMs, though states she has felt grumbling in her abdomen ??? Voiding with Hanson ??? Ambulating ??? Using IS Objective: Tmax (24 hours): 98.3 ???F (36.8 ???C) Pulse Av.7 Min: 60 Max: 71 Systolic (24hrs), Av , Min:130 , Max:144 Diastolic (24hrs), Av, Min:53, Max:58 SpO2 Av.3 % Min: 95 % Max: 96 % Resp Av Min: 18 Max: 18 Intake/Output Summary (Last 24 hours) at 12/12/2020 1050 Last data filed at 12/12/2020 0953 Gross per 24 hour Intake 962.8 ml Output 1690 ml Net -727.2 ml Physical Exam: Gen: NAD, Alert and oriented Pulm: Non labored breathing on RA, no conversational dyspnea Heart: Regular rate per chart Abd: Abdominal binder removed. Soft, ND, diffusely tender to palpation, midline incision c/d/i. R KAMI drain with ss output. Binder replaced. Ext: Warm and well perfused, No edema, SCDs in place Labs: CBC/PT/INR WBC RBC Hgb Hct MCV RDW Plt PT aPTT INR 12/12/20 0005 7.7 3.22 9.7 28.8 89 13.6 233 12/11/20 0018 9.8 3.34 10.4 29.8 89 13.7 242 12/10/20 0042 11.6 3.84 11.4 34.8 91 13.8 285 Basic Metabolic Panel Na K Cl CO2 Gap Glu BUN Cr Ca Mg PO4 12/12/20 0003 2.1 12/12/20 0003 136 4.0 104 25 11 99 15 1.28 8.1 12/11/20 0018 1.8 12/11/20 0018 136 4.3 104 26 10 109 16 1.24 8.3 12/10/20 0042 137 5.0 109 17 16 135 15 0.90 8.4 12/10/20 0042 1.8 Studies/imaging: No new studies to be reviewed. ??? ----- Medications: Scheduled * nystatin 2x Daily * cyclobenzaprine 10 mg 3x Daily * gabapentin 300 mg 3x Daily * lidocaine 1 Patch Every 24 hours * levothyroxine 75 mcg Daily * metoprolol 75 mg Daily * acetaminophen 1,000 mg q6h * enoxaparin 40 mg Daily * scopolamine 1.5 mg Q72H PRN * oxyCODONE 5 mg Q4H PRN Or * oxyCODONE 10 mg Q4H PRN * HYDROmorphone HCl PF 0.2 mg Q3H PRN * ondansetron 4 mg Q4H PRN * naloxone 0.4 mg PRN IV * dextrose 5 % and lactated ringers 75 mL/hr at 12/12/20 0937 Assessment: Ms. Buckner is a 55yo female who is POD#3 s/p???laparoscopic converted to open sigmoidectomy, CASIMIRO, and cystoscopy with b/l ureteral stent placement. Patient recovering as expected.??? Plan: Feeding: GI soft diet Analgesia: DC dilaudid SILVICULTURE PROFESSOR. PO oxycodone 5/10, Dilaudid for breakthrough. Flexeril, gabapentin for multimodal control. Volume: IVF at 75 ml/hr OT/PT: Continue working with PT/OT Respiratory: Incentive Spirometry x 10 hour Embolic Prophylaxis: OOB and ambulation, Lovenox and SCDs Tubes AND Drains: continue KAMI drain Heart: Monitor vital signs Dispo: Continue on RNF Patient was seen with chief resident Dr. Slater and d/w Attending Surgeon Dr. Gonzalez. MIREYA SharifC General Surgery Normal [facility] BASIC METABOLIC PANELon 11-20 Anion gap [Moles/Vol] 10 mmol/L Normal 5-13 [facility] Comment on above: Performed By: #### C BC #### S PATHOLOGY LABORATORY [address] [place] [address], Calcium [Mass/Vol] 8.3 mg/dL Low 8.4-10.4 [facility] Comment on above: Performed By: #### C BC #### S PATHOLOGY LABORATORY [address] [place] [address], Chloride [Moles/Vol] 104 mmol/L Normal 97-111 [facility] Comment on above: Performed By: #### C BC #### S PATH[facility] LAB[facility]ATORY [address] [place] [address], CO2 [Moles/Vol] 26 mmol/L Normal 21-30 The [facility] Comment on above: Performed By: #### C BC #### S PATHOLOGY LABORATORY [address] [place] [address], Creatinine [Mass/Vol] 1.24 mg/dL High 0.50-1.10 [facility] Comment on above: Performed By: #### C BC #### S PATHOLOGY LABORATORY [address] [place] [address], ESTIMATED GFR (CKD-EPI) 49 mL/min/1.73sqm Low >=60 [facility] Comment on above: Performed By: #### C BC #### [facility] PATH[facility]OR[facility] [address] [place] [address], Glucose [Mass/Vol] 109 mg/dL Normal 68-110 [facility] Comment on above: Performed By: #### C BC #### [facility] [address] [place] [address], Potassium [Moles/Vol] 4.3 mmol/L Normal 3.3-5.3 [facility] Comment on above: Performed By: #### C BC #### [facility] [address] [place] [address], Sodium [Moles/Vol] 136 mmol/L Normal 135-148 [facility] Comment on above: Performed By: #### C BC #### [facility] [address] [place] [address], Urea nitrogen [Mass/Vol] 16 mg/dL Normal 8-22 [facility] Comment on above: Performed By: #### C BC #### [facility] [address] [place] [address], COMPLETE BLOOD COUNTon 12-11 Erythrocyte distribution width (RBC) [Ratio] 13.7 % Normal 11.5-14.5 [facility] Comment on above: Performed By: #### P T, APTT #### [facility]ORY [address] [place] [address], Hematocrit (Bld) [Volume fraction] 29.8 % Low 36.0-46.0 [facility] Comment on above: Performed By: #### P T, APTT #### [facility]OR[facility] [address] [place] [address], Hemoglobin (Bld) [Mass/Vol] 10.4 g/dL Low 12.0-15.0 [facility] Comment on above: Performed By: #### P T, APTT #### [facility] [address] [place] [address], MCH (RBC) [Entitic mass] 31.2 pg Normal 26.0-34.0 [facility] Comment on above: Performed By: #### P T, APTT #### S PATHOLOGY LABORATORY [address] [place] [address], MCHC (RBC) [Mass/Vol] 34.9 g/dL Normal 32.0-35.9 [facility] Comment on above: Performed By: #### P T, APTT #### S PATH[facility] LABORATORY [address] [place] [address], MCV (RBC) [Entitic vol] 89 fL Normal 80-100 [facility] Comment on above: Performed By: #### P T, APTT #### [facility] [address] [place] [address], Platelet mean volume (Bld) [Entitic vol] 7.8 fL Normal 7.5-11.2 [facility] Comment on above: Performed By: #### P T, APTT #### [facility] [address] [place] [address], Platelets (Bld) [#/Vol] 242 10*3/uL Normal 150-400 The [facility] Comment on above: Performed By: #### P T, APTT #### [facility] [address] [place] [address], RBC (Bld) [#/Vol] 3.34 10*6/uL Low 4.00-5.20 The [facility] Comment on above: Performed By: #### P T, APTT #### S PATHOLOGY LABORATORY [address] [place] [address], WBC (Bld) [#/Vol] 9.8 10*3/uL Normal 4.5-11.5 [facility] Comment on above: Performed By: #### P T, APTT #### [facility] PATH[facility]ORY [address] [place] [address], Care Plan Noteon 12-11-2020 Chemistry Department Chair Authentication Interface Message Text Problem: Routine Care: Goal: Patient care will be managed and maintained throughout hospital stay per unit specific routine care procedure Outcome: Progressing Problem: Acute Pain: Goal: Ability to identify pain intensity on a pain scale and rate it consistently will be achieved and maintained Outcome: Progressing Goal: Understanding of proper administration and use of medicines will be achieved Outcome: Progressing Goal: Acceptable level of pain which allows the patient to achieve functional outcome goals Outcome: Progressing Goal: Ability to identify factors that manage or decrease pain will be achieved Outcome: Progressing Problem: Altered Elimination: Goal: Establishment of normal bowel function will be achieved and maintained Outcome: Progressing Goal: Establishment of individualized bowel routine will be obtained Outcome: Progressing Goal: Establishment of normal urinary function will be acheived and maintained Outcome: Progressing Goal: Establishment of individualized urinary routine Outcome: Progressing Problem: Altered Nutrition: Goal: Achieve developmentally appropriate nutritional intake as clinically indicated Outcome: Progressing Goal: Attain/Maintain Optimal Nutritional Status Outcome: Progressing Goal: Ability to chew and swallow food without choking will improve Outcome: Progressing Goal: Demonstrates progression toward an optimal weight Outcome: Progressing Problem: Risk for Infection: Goal: Risk for infection will be reduced Outcome: Progressing Problem: Impaired Skin Integrity: Goal: Acheive wound healing without signs and symptoms of infection Outcome: Progressing Goal: Skin integrity will improve and/or be maintained Outcome: Progressing Problem: VTE Prophylaxis: Goal: Will be free of DVT Outcome: Progressing Problem: Safety: Goal: Patient will remain free of falls during hospital stay Outcome: Progressing Goal: Free from injury during hospitalization Outcome: Progressing Normal [facility] MAGNESIUMon 12-11-2020 Magnesium [Mass/Vol] 1.8 mg/dL Normal 1.6-2.8 [facility] Comment on above: Performed By: #### C #### [facility] [address] [place] [address], [phone] Progress Noteson 12-11-2020 Chemistry Department Chair Authentication Interface Message Text Attestation signed by Jhonatan Gonzalez MD at 12/15/2020 8:27 AM Attending Physician Note: I personally saw and evaluated the patient. I personally obtained the reese and critical portions of the history and physical exam on the date of this note and have no additions or changes to the documented history and physical exam except as detailed below. I discussed the patient with the team earlier in the day. The plan as written in the PA's note reflects the plan formulated by me and discussed with the PA and the team. Aditya Gonzalez MD Colorectal Surgery GREEN SURGERY PROGRESS NOTE Interval history/Events: ??? NAEON ??? Pain adequately controlled on SILVICULTURE PROFESSOR ??? Denies N/V ??? Tolerating PO GI soft diet ??? - flatus, - BMs, notes frequent belching ??? Voiding with hanson ??? Ambulating independently ??? Using IS Objective: Tmax (24 hours): 98.2 ???F (36.8 ???C) Pulse Av.8 Min: 66 Max: 74 Systolic (24hrs), Av , Min:114 , Max:150 Diastolic (24hrs), Av, Min:45, Max:63 SpO2 Av.6 % Min: 92 % Max: 95 % Resp Av Min: 18 Max: 18 Intake/Output Summary (Last 24 hours) at 12/11/2020 0744 Last data filed at 12/11/2020 0724 Gross per 24 hour Intake 2097.6 ml Output 1535 ml Net 562.6 ml Physical Exam: Gen: NAD, alert and oriented Pulm: Non labored breathing on RA, no conversational dyspnea Heart: RRR Abd: Soft, ND, generalized tenderness to palpation, midline incision inferior to umbilicus with improved erythema, no drainage. R KAMI drain with SS output. Ext: Warm and well perfused, no edema, SCD's in place Labs: CBC/PT/INR WBC RBC Hgb Hct MCV RDW Plt PT aPTT INR 12/11/20 0018 9.8 3.34 10.4 29.8 89 13.7 242 12/10/20 0042 11.6 3.84 11.4 34.8 91 13.8 285 Basic Metabolic Panel Na K Cl CO2 Gap Glu BUN Cr Ca Mg PO4 12/11/20 0018 1.8 12/11/20 0018 136 4.3 104 26 10 109 16 1.24 8.3 12/10/20 0042 137 5.0 109 17 16 135 15 0.90 8.4 12/10/20 0042 1.8 Studies/imaging: No new imaging studies to review. ----- Medications: Scheduled * cyclobenzaprine 10 mg 3x Daily * gabapentin 300 mg 3x Daily * lidocaine 1 Patch Every 24 hours * levothyroxine 75 mcg Daily * metoprolol 75 mg Daily * acetaminophen 1,000 mg q6h * enoxaparin 40 mg Daily * scopolamine 1.5 mg Q72H PRN * ondansetron 4 mg Q4H PRN * naloxone 0.4 mg PRN * .NO ORAL PAIN MEDS WHILE ON SILVICULTURE PROFESSOR/EPIDURAL 1 Each PRN IV * HYDROmorphone Assessment: Ms. Buckner is a 55yo female who is POD#2 s/p laparoscopic converted to open sigmoidectomy, CASIMIRO, and cystoscopy with b/l ureteral stent placement. Patient recovering as expected. ??? Plan: Neuro/Pain: Pain control with Tylenol and Dilaudid SILVICULTURE PROFESSOR. Multimodal pain control with lidocaine patches, gabapentin and flexeril. CV: Monitor vital signs Pulm: Encourage IS x10/hr, OOB and ambulation : Maintain hanson catheter with close monitoring for blockage; flush PRN Endocrine: Replete electrolytes, daily labs ID: No abx indicated FEN: IVF LR @ 100ml/hr, continue GI soft diet Renal: Monitor kidney function Tubes/lines/drains: Continue KAMI drain and monitor output Proph: Lovenox and SCDs Special: Abdominal binder Dispo: Continue on RNF Patient was seen with Dr. Slater and d/w Attending Surgeon Dr. Gonzalez. Laina Bahena PA-C General Surgery Green pager #[phone] Normal [facility] Addendum Noteon 12-10-2020 Chemistry Department Chair Authentication Interface Message Text Addendum created 12/10/20 1008 by Evon Armas MD Clinical Note Signed Normal [facility] Anesthesia Postprocedure Angelina quinn 12-10-2020 Chemistry Department Chair Authentication Interface Message Text Anesthesia Postoperative Assessment: Vital Signs (most recent): BP 122/53 (BP Location: left arm) Pulse 64 Temp 36.7 ???C (98 ???F) (Oral) Resp 18 Ht 5' 3 (1.6 m) Wt 230 lb (104.3 kg) SpO2 96% BMI 40.74 kg/m??? Anesthesia Post Evaluation Patient location during evaluation: bedside Patient participation: complete - patient participated Level of consciousness: awake and alert Pain score: 0 Pain management: satisfactory to patient Airway patency: patent Cardiovascular status: hemodynamically stable Respiratory status: Patient breathing comfortably on room air Hydration status: normal PONV: No nausea/vomiting reported I was personally responsible for performing the postop evaluation. ANESTHESIA COMPLICATIONS: No complications documented. Normal [facility] BASIC METABOLIC PANELon 11-20 Anion gap [Moles/Vol] 16 mmol/L High 5-13 [facility] Comment on above: Performed By: #### P T, APTT #### S [facility] [address] [place] [address], Calcium [Mass/Vol] 8.4 mg/dL Normal 8.4-10.4 [facility] Comment on above: Performed By: #### P T, APTT #### [facility] [address] [place] [address], Chloride [Moles/Vol] 109 mmol/L Normal 97-111 [facility] Comment on above: Performed By: #### P T, APTT #### [facility] [address] [place] [address], CO2 [Moles/Vol] 17 mmol/L Low 21-30 [facility] Comment on above: Performed By: #### P T, APTT #### [facility] [address] [place] [address], Creatinine [Mass/Vol] 0.90 mg/dL Normal 0.50-1.10 [facility] Comment on above: Performed By: #### P T, APTT #### [facility] [address] [place] [address], ESTIMATED GFR (CKD-EPI) 72 mL/min/1.73sqm Normal >=60 [facility] Comment on above: Performed By: #### P T, APTT #### [facility] [address] [place] [address], Glucose [Mass/Vol] 135 mg/dL High 68-110 [facility] Comment on above: Performed By: #### P T, APTT #### [facility] [address] [place] [address], Potassium [Moles/Vol] 5.0 mmol/L Normal 3.3-5.3 [facility] Comment on above: Performed By: #### P T, APTT #### [facility] [address] [place] [address], Sodium [Moles/Vol] 137 mmol/L Normal 135-148 [facility] Comment on above: Performed By: #### P T, APTT #### [facility] [address] [place] [address], Urea nitrogen [Mass/Vol] 15 mg/dL Normal 8-22 [facility] Comment on above: Performed By: #### P T, APTT #### [facility] [address] [place] [address], COMPLETE BLOOD COUNTon 12-10 Erythrocyte distribution width (RBC) [Ratio] 13.8 % Normal 11.5-14.5 [facility] Comment on above: Performed By: #### C BC #### [facility] [address] [place] [address], Hematocrit (Bld) [Volume fraction] 34.8 % Low 36.0-46.0 [facility] Comment on above: Performed By: #### C BC #### [facility] [address] [place] [address], Hemoglobin (Bld) [Mass/Vol] 11.4 g/dL Low 12.0-15.0 [facility] Comment on above: Performed By: #### C BC #### [facility] [address] [place] [address], MCH (RBC) [Entitic mass] 29.6 pg Normal 26.0-34.0 [facility] Comment on above: Performed By: #### C BC #### [facility] [address] [place] [address], MCHC (RBC) [Mass/Vol] 32.6 g/dL Normal 32.0-35.9 [facility] Comment on above: Performed By: #### C BC #### [facility] [address] [place] [address], MCV (RBC) [Entitic vol] 91 fL Normal 80-100 [facility] Comment on above: Performed By: #### C BC #### [facility] [address] [place] [address], Platelet mean volume (Bld) [Entitic vol] 7.8 fL Normal 7.5-11.2 [facility] Comment on above: Performed By: #### C BC #### [facility] [address] [place] [address], Platelets (Bld) [#/Vol] 285 10*3/uL Normal 150-400 [facility] Comment on above: Performed By: #### C BC #### [facility] [address] [place] [address], RBC (Bld) [#/Vol] 3.84 10*6/uL Low 4.00-5.20 [facility] Comment on above: Performed By: #### C BC #### [facility] [address] [place] [address], WBC (Bld) [#/Vol] 11.6 10*3/uL High 4.5-11.5 [facility] Comment on above: Performed By: #### C BC #### [facility] [address] [place] [address], Care Plan Noteon 12-10-2020 Chemistry Department Chair Authentication Interface Message Text Problem: Routine Care: Goal: Patient care will be managed and maintained throughout hospital stay per unit specific routine care procedure 12/09/2020 2316 by Haley Gordillo RN Outcome: Progressing 12/09/20202218 by Haley Gordillo RN Outcome: Progressing Problem: Altered Elimination: Goal: Establishment of normal bowel function will be achieved and maintained 12/09/20206 by Haley Gordillo RN Outcome: Progressing 12/09/20202218 by Haley Gordillo RN Outcome: Progressing Goal: Establishment of individualized bowel routine will be obtained 12/09/20202315 by Haley Gordillo RN Outcome: Progressing 12/09/20202218 by Haley Gordillo RN Outcome: Progressing Goal: Establishment of normal urinary function will be acheived and maintained 12/09/20202315 by Haley Gordillo RN Outcome: Progressing 12/09/20202218 by Haley Gordillo RN Outcome: Progressing Goal: Establishment of individualized urinary routine 12/09/20202315 by Haley Gordillo RN Outcome: Progressing 12/09/20202218 by Haley Gordillo RN Outcome: Progressing Normal [facility] Chemistry Department Chair Authentication Interface Message Text Problem: Routine Care: Goal: Patient care will be managed and maintained throughout hospital stay per unit specific routine care procedure Outcome: Progressing Problem: Acute Pain: Goal: Ability to identify pain intensity on a pain scale and rate it consistently will be achieved and maintained Outcome: Progressing Goal: Understanding of proper administration and use of medicines will be achieved Outcome: Progressing Goal: Acceptable level of pain which allows the patient to achieve functional outcome goals Outcome: Progressing Goal: Ability to identify factors that manage or decrease pain will be achieved Outcome: Progressing Normal [facility] MAGNESIUMon 12-10-2020 Magnesium [Mass/Vol] 1.8 mg/dL Normal 1.6-2.8 [facility] Comment on above: Performed By: #### C H8, MG ####[facility] [id number] [place], [id number] Progress Noteson 12-10-2020 Chemistry Department Chair Authentication Interface Message Text CASE MANAGEMENT CM at bedside to discuss discharge planning. Pt states that primary team informed her that drain should be removed prior to discharge. PT/OT reports no needs. CM will continue to follow pt needs as warranted. Colleen MUELLER,salt miner [phone] Normal [facility] Chemistry Department Chair Authentication Interface Message Text Attestation signed by Jhonatan Gonzalez MD at 12/15/2020 8:27 AM Attending Physician Note: I personally saw and evaluated the patient. I personally obtained the reese and critical portions of the history and physical exam on the date of this note and have no additions or changes to the documented history and physical exam except as detailed below. I discussed the patient with the team earlier in the day. The plan as written in the PA's note reflects the plan formulated by me and discussed with the PA and the team. Aditya Gonzalez MD Colorectal Surgery [facility] SURGERY PROGRESS NOTE Interval history/Events: ??? NAEON ??? Pain adequately controlled on current regimen (SILVICULTURE PROFESSOR) ??? Denies N/V ??? Tolerating PO clear liquids however has only taken in 120cc ??? - flatus, - BMs ??? Voiding with hanson ??? Ambulating minimally ??? Using IS Objective: Tmax (24 hours): 98.1 ???F (36.7 ???C) Pulse Av.8 Min: 58 Max: 66 Systolic (24hrs), Av , Min:117 , Max:160 Diastolic (24hrs), Av, Min:53, Max:90 SpO2 Av % Min: 93 % Max: 99 % Resp Av.7 Min: 13 Max: 21 Intake/Output Summary (Last 24 hours) at 12/10/2020 0730 Last data filed at 12/10/2020 0611 Gross per 24 hour Intake 2020 ml Output 1040 ml Net 980 ml Physical Exam: Gen: NAD, alert and oriented Pulm: Non labored breathing on RA, no conversational dyspnea Heart: RRR Abd: Soft, ND, midline incision inferior to umbilicus with mild surrounding erythema and scant SS drainage at inferior portion. R KAMI drain SS output. Gu: Hematuria present in hanson Ext: Warm and well perfused, no edema, SCD's in place Labs: CBC/PT/INR WBC RBC Hgb Hct MCV RDW Plt PT aPTT INR 12/10/20 0042 11.6 3.84 11.4 34.8 91 13.8 285 Basic Metabolic Panel Na K Cl CO2 Gap Glu BUN Cr Ca Mg PO4 12/10/20 0042 137 5.0 109 17 16 135 15 0.90 8.4 12/10/20 0042 1.8 Studies/imaging: No new imaging studies to review. ----- Medications: Scheduled * levothyroxine 75 mcg Daily * metoprolol 75 mg Daily * acetaminophen 1,000 mg q6h * enoxaparin 40 mg Daily * scopolamine 1.5 mg Q72H PRN * naloxone 0.4 mg PRN * .NO ORAL PAIN MEDS WHILE ON SILVICULTURE PROFESSOR/EPIDURAL 1 Each PRN IV * HYDROmorphone Assessment: Ms. Buckner is a 55yo female who is POD#1 s/p laparoscopic converted to open sigmoidectomy, CASIMIRO, and cystoscopy with b/l ureteral stent placement. Patient recovering as expected. Plan: Neuro/Pain: Pain control with Tylenol and Dilaudid SILVICULTURE PROFESSOR CV: Monitor vital signs Pulm: Encourage IS x10/hr, OOB and ambulation : Maintain hanson catheter with close monitoring for blockage; flush PRN Endocrine: Replete electrolytes, daily labs ID: No abx indicated FEN: IVF LR @ 100ml/hr, advance to GI soft diet Tubes/lines/drains: Continue KAMI drain and monitor output Proph: Lovenox and SCDs Dispo: Continue on RNF Patient was seen with Dr. Slater and d/w Attending Surgeon Dr. Gonzalez. Laina Bahnea PA-C General Surgery Green pager #[phone] Normal [facility] Chemistry Department Chair Authentication Interface Message Text Post-op check note S: No acute events since surgery. Pt has tolerated sip clears without nausea and vomiting. Pain is 'fair'. Denies CP and SOB. Denies OOB, flatus/BM. Hanson still in place with hematuria O: Vitals Recorded in This Encounter 12/09/2020199912/09/2020202912/09/2020204412/09/2020211212/09/20202150 BP: 123/90 -- 160/70 -- -- Pulse: 66 63 58 -- -- Resp: 17 18 15 -- -- Temp: -- -- 97.7 ???F (36.5 ???C) -- -- Temp src: -- -- Oral -- -- SpO2: 97 % 97 % 98 % -- -- Height: -- -- -- 5' 3 (1.6 m) -- Pain Score: -- -- 5 8 10 Intake/Output Summary (Last 24 hours) at 12/09/20202258 Last data filed at 12/09/20202112 Gross per 24 hour Intake 2019 ml Output 595 ml Net 1425 ml Gen: NAD, resting comfortably in bed Neuro: Alert and oriented Chest: breathing comfortably ORA Abdomen: Soft, appropriately tender, slightly distended, midline mini-laparotomy site CDI with dermabond, LLQ incision covered with island CDI w/o strike through, KAMI with minimal serosanguinous output Extremities: moving all extremities equally A/P Pt is POD#0 s/p laparoscopic converted to open sigmoidectomy, CASIMIRO, and cystoscopy with b/l ureteral stent placement. Pt tolerated procedure well - Cont to optimize pain control - Cont diet as ordered - Encourage OOB and IS use - Flush hanson PRN to prevent blockage Jenny Landers MD General Surgery, PGY1 [facility] [phone] Normal [facility] Anesthesia Attestationon Chemistry Department Chair Authentication Interface Message Text Anesthesia Attestation ATTESTATION OF INFORMED CONSENT FOR ANESTHESIA Anesthesia options were discussed with the patient and/or legal traffic workforce representative. The risks, benefits and alternatives were reviewed. Questions regarding anesthesia were answered. Patient and/or legal traffic workforce representative knows such anesthetics and procedures may be performed by Resident physicians, Certified Anesthesiologist Assistants, or Certified Nurse Anesthetists under the supervision of a physician. The patient /or the patient's legal traffic workforce representative agree with the plan for anesthesia. R/b dw pt including risk of v,a, n injury/loss of hand/infx due to rosmery. Understands at higher risk and wishes to proceed. Normal [email or web address] Anesthesia Postprocedure Angelina luationon 12-09-2020 Chemistry Department Chair Authentication Interface Message Text Anesthesia Postoperative Assessment: Vital Signs (most recent): BP 160/70 Pulse 58 Temp 36.5 ???C (97.7 ???F) (Oral) Resp 15 Ht 5' 3 (1.6 m) Wt 230 lb (104.3 kg) SpO2 98% BMI 40.74 kg/m??? Anesthesia Post Evaluation Patient location during evaluation: PACU Patient participation: complete - patient participated Level of consciousness: awake and alert Pain score: 4 Pain management: adequate Airway patency: patent Cardiovascular status: hemodynamically stable and acceptable Respiratory status: acceptable and Patient breathing comfortably on room air Hydration status: normal PONV: No nausea/vomiting reported I was personally responsible for performing the postop evaluation. ANESTHESIA COMPLICATIONS: No complications documented. 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, Neuro/Psych Cardiovascular (+) hypertension, Surgical risk: intermediate; Cardiac condition: stable GI/Hepatic/Renal Comment: diverticulosis Heme/Other Physical Exam Airway Mallampati: IV TM distance: Adequate Micrognathia: Not present Jaw opening: Adequate Neck flexion: Limited Flexion and Limited Extension Dental PE (+) lower dentures and upper dentures Pulmonary Decreased breath sounds Cardiovascular - cardiovascular exam normal Comment: RRR with S1S2; no murmurs, gallops, or rubs Neuro - neurological exam normal Comment: Awake, alert, oriented, No motor deficits and sensation grossly intact Plan Anesthesia plan: general (ETT) Medications may include (but not limited to): anxiolytics, narcotic analgesics, IV hypnotics, neuromuscular blockers and inhalational analgesics Pain management: May include (but not limited to): anxiolytics and narcotic analgesics Anesthesia risks / alternatives discussed pre-op Questions answered / anesthesia plan accepted Past medical history, surgical history, allergies, and medications reviewed. Pertinent laboratory tests, EKG, imaging, and consults reviewed. I have reviewed the entire pre-surgical evaluation telephone history and/ or history and physical, and I have personally seen and evaluated the patient, repeating reese portions of the history and physical examination. Normal [facility] Anesthesia Transfer Of Careo n 12-09-2020 Chemistry Department Chair Authentication Interface Message Text Patient taken to PACU. Patient was drowsy, comfortable and stable on arrival. Anesthesia Transfer of Care Note Past Medical History: Past Medical History: Diagnosis Date * Diverticulitis Drain placed * HTN (hypertension) * Hypothyroidism Sleep Apnea/Positive STOP-BANG: No Problem List: Patient Active Problem List: Abscess of sigmoid colon due to diverticulitis [K57.20] Diverticulitis of large intestine with abscess without bleeding [K57.20] Past Surgical History: Review of patient's past surgical history indicates: HERNIA REPAIR (2014) triple surgery Allergies: Patient has no known allergies. Basic Operating Room Facts: Surgeon(s): Jhonatan Gonzalez MD Nguyen, Carvell, MD Anesthesiologist: Jose Guadalupe Fletcher MD; Priscila Toure MD; Dilcia Louis MD CAA: Andressa Nugent CAA; Neema Pike CAA; Robert Moore CAA Handbag Parts Cutter: Noah Anderson MD LAPAROSCOPIC CONVERTED TO OPEN SIGMOID COLECTOMY; LAPAROSCOPIC SPLENIC FLEXURE MOBILIZATION; LAPAROSCOPIC LYSIS OF ADHESIONS 45 MINUTES; RIGID PROCTOSCOPY (Left ) CYSTOSCOPY, STENT INSERTION Intraoperative Events: No acute event ASA: 3 EBL: 150 mL Urine Not documented Lactated Ringers and NaCl 0.9%: Fluid Totals (Filter: LR and NaCl 0.9% Medications Shown) Medication Calculated Total Lactated Ringers 1,000 mL / 1 bag NaCl 0.9% 900 mL / 1 bag Cell Saver: Not documented Blood Volume Values: Blood Products None MTP Blood: MTP PRBC: Not documented MTP FFP: Not documented MTP PLT: Not documented MTP Cryo: Not documented MTP Whole Blood: Not documented Current Vasoactive Medications: {Vasoactive Medications: None Lines, Drains, Airways Peripheral IV Access: 12/09/20 1113 18 gauge Left Hand (Active) Site Assessment WNL 12/09/20 1113 Infusion Status Port #1 Infusing;Positive blood return 12/09/20 1113 Peripheral IV Access: 12/09/20 1307 18 gauge Right;Dorsum Hand (Active) Site Assessment WNL;Dressing intact 12/09/20 1331 Infusion Status Port #1 Infusing 12/09/20 1331 Airway Adjunct: Nasal Cannula (Active) Arterial Line: 12/09/20 Left (Active) Site Assessment WNL;Dressing intact 12/09/20 1318 Line Status WNL 12/09/20 1318 Airway Insertion Details [REMOVED] Advanced Airway: ETT, Oral #7 (Removed) 12/09/20 1300 Pre-Oxygenation/ Induction: Rapid Sequence Induction?: Mask Ventilation: Easy Blade size: Mac 4 Visualization: Grade 1 Airway Type: ETT, Oral Airway Size: #7 Post Insertion Assessment: Confirmation: Equal bilateral breath sounds, CO2 confirmed # Attempts >1: Special Equipment: Present on Admission?: Previously Removed / Not Present: Removal Reason: Not Removed at Discharge: Removed 12/09/20 1728 Location (cm) 21 12/09/20 1315 Measured from: Lips 12/09/20 1315 Secured via: Taped 12/09/20 1315 Site Assessment WN 12/09/20 1315 All non-working IVs have been removed: Yes Laboratory Data: CBC (last 3 years, up to 5 values) WBC RBC Hgb Hct MCV RDW Plt 12/03/20 1511 9.6 4.32 12.9 38.4 89 14.1 397 11/21/20 0031 8.9 3.47 10.7 30.9 89 13.3 254 11/20/20 0228 11.9 3.38 10.3 30.0 89 13.1 244 11/19/20 2103 12.4 3.62 10.7 32.4 90 13.4 274 Basic Metabolic Panel Na K Cl CO2 Gap Glu BUN Cr Ca 12/03/20 1511 141 4.6 102 25 19 87 11 0.72 9.7 11/21/20 0031 137 3.7 106 23 12 89 11 1.00 8.0 11/20/20 0228 137 3.3 105 21 14 96 18 1.29 8.0 11/19/20 2103 139 3.8 Comment: Hemolysis present 105 23 15 96 19 1.33 8.2 Basic Metabolic Panel None INR (no units) Date Value 11/20/2020 1.49 (H) No result for BNP LFT's (last 3 years, up to 5 values) None Arterial Blood Gases None Hand off Completed: Yes 1. The patient was identified. 2. Pertinent medical history was relayed. 3. A brief discussion was had about any pertinent surgical/ procedural issues. 4. Intraoperative/ anesthetic management issue and concerns were discussed. 5. Plans for the early post-operative period relayed. 6. An opportunity for questions and acknowledgment of understanding of the report was received. WILLIAMS Renae Normal [facility] Blood Attestationon 12-10-19 Chemistry Department Chair Authentication Interface Message Text Blood Attestation ATTESTATION OF INFORMED CONSENT FOR BLOOD The transfusion of blood and/or blood components were discussed with the patient and/or legal traffic workforce representative. The risks, benefits and alternatives were reviewed. Questions regarding blood transfusions were answered. The patient /or the patient's legal traffic workforce representative agree with the plan for transfusion of blood and/or blood components. Normal [facility] Brief Operative Noteon 12-09 Chemistry Department Chair Authentication Interface Message Text Brief Operative Note MAIN OR 15 Angelica Buckner 55 year old female Surgical Contact Serial Number: [id number] Preoperative Diagnosis: Diverticulitis of large intestine with abscess without bleeding [K57.20] Postoperative Diagnosis: * Diverticulitis of large intestine with abscess without bleeding [K57.20] Procedures: 1) Laparoscopic converted to open sigmoid colectomy 2) Laparoscopic splenic flexure mobilization 3) Laparoscopic lysis of adhesions 45 minutes 4) Rigid proctoscopy 5) Cystoscopy and bilateral ureteral stent placement (Dr. Wall) Surgeon(s): Surgeon(s): Jhonatan Gonzalez MD Nguyen, Carvell, MD Staff: Scrub: Khadra Marrero RN; Diogo Villagomez, CHRIS; Soco Kerns RN Shank Stitcher Nurse: Siobhan Bourgeois RN; Angelica Woodruff RN Site Inspector: Michelle Saul MD; Megan Marquez MD Anesthesia: General Anesthesiologist: Jose Guadalupe Fletcher MD; Priscila Toure MD; Dilcia Louis MD CAA: Andressa Nugent CAA; Neema Pike CAA Handbag Parts Cutter: Noah Anderson MD Specimen(s): ID Type Source Tests Collected by Time Destination 1 : Sigmoid Colon Tissue Colon SPECIMEN FOR SURGICAL PATH Jhonatan Gonzalez MD 12/09/2020 1455 Estimated Blood Loss: 150 Lines/Drains: Peripheral IV Access: 12/09/20 1113 18 gauge Left Hand (Active) Site Assessment WNL 12/09/20 1113 Infusion Status Port #1 Infusing;Positive blood return 12/09/20 1113 Peripheral IV Access: 12/09/20 1307 18 gauge Right;Dorsum Hand (Active) Site Assessment WNL;Dressing intact 12/09/20 1331 Infusion Status Port #1 Infusing 12/09/20 1331 Nasogastric/Orogastric Tube 12/09/20 O/G Oral (Active) Site Assessment WNL 12/09/20 1336 Gastric Aspirate Description N/A 12/09/20 1336 Surgical Drain Abscess # 1 10 fr Anterior (Active) Surgical Drain Isaac Gillespie -- Flat 19 fr Right (Active) Temporarily Retained Foreign Object: No Findings: Short segment sigmoid inflammation and thickening with drain in pericolic chronic abscess; stapled end to end colorectal anastomosis at 17 cm from the verge; leak test negative Complications: None Status at end of surgery: Stable Activity: Ad Danica Surgical wound class: Yes, wound was contaminated. Patient Class: Surgery Admit. Is this a patient scheduled as an outpatient that needs to be admitted as an inpatient? No I was present in the OR for the entire procedure and procedure sign-out. Signed by Jhonatan Gonzalez MD 12/09/2020 4:57 PM Normal [facility] OP Noteon 12-09-2020 Chemistry Department Chair Authentication Interface Message Text DATE: 12/09/20 PATIENT NAME: Angelica Buckner : 1965 PREOPERATIVE DIAGNOSIS: Smoldering diverticulitis POSTOPERATIVE DIAGNOSIS: Same PROCEDURES: 1) Laparoscopic converted to open sigmoid colectomy 2) Laparoscopic splenic flexure mobilization 3) Laparoscopic lysis of adhesions 45 minutes 4) Rigid proctoscopy 5) Cystoscopy and bilateral ureteral stent placement (Dr. Wall - Urology) SURGEON: Jhonatan Gonzalez MD CO-SURGEON: Benigno Wall MD (Urology) CASH REGISTER BALANCER SURGEON: Megan Marquez MD (General Surgery Resident) ANESTHESIA: General SPECIMEN: Rectosigmoid colon COMPLICATIONS: None. BOWEL PREP: Golytely with oral antibiotics (flagyl and neomycin) PRE-OPERATIVE DVT PROPHYLAXIS: Lovenox 40 units subcutaneous INTRA-OPERATIVE DVT PROPHYLAXIS: SCDs OPERATIVE FINDINGS: Omental adhesions to upper midline hernia mesh; short segment sigmoid inflammation and thickening with drain in pericolic chronic abscess; stapled end to end colorectal anastomosis at 17 cm from the verge; leak test negative INDICATIONS: 55 year old female with recent diverticulitis and IR drain placement. She was seen in clinic with continued pain and feculent drainage from the drain consistent with ongoing contained perforation. Given failure to resolve, laparoscopic sigmoidectomy was recommended. Possible stoma was discussed. I thoroughly discussed the risks, benefits, and alternatives of operative treatment with the patient and she agreed to proceed. General risks related to abdominal surgery were reviewed with the patient. These include, but are not limited to, , myocardial infarction, pneumonia, urinary tract infection, deep venous thrombosis with or without pulmonary embolus, abdominal infection from bowel injury or abscess, fistula, anastomotic leak that may require reoperation and a stoma, ureteral injury, bowel obstruction, wound infection, and bleeding OPERATIVE COURSE: After obtaining informed consent, the patient was brought to the operating room and placed in the lithotomy position. Appropriate preoperative mechanical and chemical deep venous thrombosis prophylaxis, as well as preoperative prophylactic parenteral antibiotics were given. General endotracheal anesthesia was gently induced. Bilateral lower extremity pneumatic compression devices were applied and all pressure points were cushioned. Urology began the procedure with cystoscopy and placement of bilateral ureteral stents and hanson catheter (see separate dictation). Once urology was finished, the abdomen was then prepped and draped in the standard sterile fashion. After a time-out was performed, the abdomen was entered under direct vision with a 5 mm optical trocar placed at Robert's point. Pneumoperitoneum was established with CO2 without difficulty. A 5 mm 0 degree angle laparoscope was then used to explore the peritoneal cavity. No evidence of bleeding or bowel injury was visualized. Omental adhesions were noted to her old upper midline hernia mesh. An additional trocar was placed in the left lower quadrant and the omental adhesions were taken down with the Ligasure. As the peritoneum was cleared, additional trocars were placed at the right upper (5 mm) and right lower quadrants (5 mm), under direct vision. Finally, a 10 mm trocar was placed infraumbilically just below the mesh. We then switched to a 10 mm 30 degree scope. The sigmoid was noted to the thickened and adhered to the left lateral sidewall. The sigmoid colon, descending colon and distal transverse colon were mobilized using a top-down ihrrew-mr-fribmhr technique with the Ligasure. The lateral attachments of the descending colon, splenocolic ligament, and gastrocolic ligament were then divided. The entire splenic flexure was mobilized. The left side of the greater omentum was also dissected off the distal transverse colon and descending colon. Due to the dense adhesions of the sigmoid colon in the pelvis the planes were not easily identifiable and an attempt at laparoscopic mobilization was unsuccessful. We thus elected to complete the pelvic portion of the case in an open fashion. The umbilical trocar was removed and a lower midline incision was made by extending this site down to the pelvis. A wound protector was placed and the small bowel reflected to the upper abdomen. The sigmoid colon was mobilized using blunt finger fracture and cautery. The ureteral stents were clearly identified and were very deep the our plane of dissection. A chronic abscess cavity was encountered anteriorly between the sigmoid colon and the abdominal wall, with the IR drain contained in this space.The IR drain was removed. Distal dissection and mobilization was continueddown to the upper rectum which was soft, pliable and normal appearing. A window was made in the rectosigmoid mesentery and the upper rectum divided with a green contour stapler. The rec (more content not included)... Normal [facility] Chemistry Department Chair Authentication Interface Message Text Division of Urology Operative Note Angelica A Patrice 12/09/20 [id number] 55 year old Surgeon: Benigno Wall. PhD Asst: Michelle Saul MD Operation: rigid cystoscopy Bilateral ureteral catheter placement Anesthesia: General- Oral ETT Preoperative Diagnosis: Need for ureteral identification Postoperative Diagnosis: Same Operative Indications: The patient was referred for evaluation and management of diverticulitis. She is planned for laparoscopic sigmoidectomy (Colorectal surgery), and urology was consulted for placement of identifying ureteral catheters. The natural history of this disease was explained to the patient at length, as well as the treatment options. Patient elected to undergo the above named procedure after thorough discussion of the rationale, risks, benefits, alternatives, and personnel. The patient is admitted for surgery at this time. Operative Findings: Vesico-vaginal prolapse Orthotopic ureteral orfieces Operative Procedure: After informed consent was obtained, the patient was taken to the operating room. A time-out was performed where the patient and procedure were identified in the presence of Nursing, Anesthesia, and surgical staff. After the placement of lines and monitors, general anesthesia was induced. Prophylactic antibiotics were administered. Sequential compressive devices were placed on both lower extremities. The patient was placed in the dorsal lithotomy. Patient was prepped and draped in a standard sterile fashion. A rigid cystoscope was introduced per urethra. Inspection of the urethra revealed no strictures, tumors, or lesions. There was vaginal prolapse. The bladder was then entered and the ureteral orifices were noted in the normal anatomic positions. There was also a central cystocele. Vaginal exam was performed to reduce the cystocele. There was apical descent noted as well. The bladder mucosa was inspected in its entirety. There was no trabeculation. No tumors, lesions, or stones were noted. The left UO was cannulated using a sensor wire and 5 Fr ureteral catheter. The wire was advanced until gentle resistance was felt. The catheter was then advanced to the level of the kidney. The procedure was then repeated on the right side. A 5 fr open ended catheter was placed and both were connected to a slade device. A hanson catheter was placed and connected to a drainage bag along with the ureteral stents. The patient was then returned to [facility] for the remainder of their procedure. Estimated Blood Loss: none Fluids: see anesthesia report Drains: 16 fr hanson catheter B/l 5 fr ureteral stents Specimens: none Complications: None Disposition: To recovery room in stable condition. Surgical wound class: II Patient Class: Surgery Admit. Is this a patient scheduled as an outpatient that needs to be admitted as an inpatient? No Normal [facility] RED BLOOD CELL COMPONENTon 0 12-09-2020 BB ORDER ITEM Product status info to follow Normal [facility] Comment on above: Performed By: #### P T, APTT #### [facility] [address] [place] [address], RED BLOOD CELL UNIT STATUSon 12-09-2020 BLOOD PRODUCT CODE [id number] Normal [facility] Comment on above: Performed By: #### R BU #### [facility] [address] [place] [address], Performed By: #### C BC #### [facility] [address] [place] [address], BLOOD PRODUCT DESCRIPTION Red Blood Cells Normal [facility] Comment on above: Performed By: #### R BU #### [facility] [address] [place] [address], Performed By: #### C BC #### [facility] [address] [place] [address], BLOOD PRODUCT STATUS Returned to Bld Bnk Normal [facility] Comment on above: Performed By: #### R BU #### [facility] [address] [place] [address], Performed By: #### C BC #### [facility] [address] [place] [address], BLOOD PRODUCT UNIT INFO [id number] Normal [facility] Comment on above: Performed By: #### R BU #### [facility] [address] [place] [address], BLOOD PRODUCT UNIT INFO [id number] Normal [facility] Comment on above: Performed By: #### C BC #### [facility] [address] [place] [address], BLOOD PRODUCT UNIT TYPE 5100 Normal [facility] Comment on above: Result Comment: O Po s Performed By: #### R BU #### [facility] [address] [place] [address], Performed By: #### C BC #### [facility] [address] [place] [address], CROSSMATCH INTERPRETATION Compatible (E) Normal [facility] Comment on above: Performed By: #### R BU #### [facility] [address] [place] [address], Performed By: #### C BC #### [facility] [address] [place] [address], TYPE AND SCREENon 12-09-2020 ABO and Rh group Nom (Bld) Blood group O Rh(D) positive Normal The [facility] Comment on above: Performed By: #### C BC #### [facility] [address] [place] [address], ABSC INT Negative Normal [facility] Comment on above: Performed By: #### C BC #### [facility] [address] [place] [address], BASIC METABOLIC PANELon 11-19 Anion gap [Moles/Vol] 19 mmol/L High 5-13 [facility] Comment on above: Performed By: #### C BC #### [facility] [address] [place] [address], Calcium [Mass/Vol] 9.7 mg/dL Normal 8.4-10.4 [facility] Comment on above: Performed By: #### C BC #### [facility] [address] [place] [address], Chloride [Moles/Vol] 102 mmol/L Normal 97-111 [facility] Comment on above: Performed By: #### C BC #### [facility] [address] [place] [address], CO2 [Moles/Vol] 25 mmol/L Normal 21-30 The [facility] Comment on above: Performed By: #### C BC #### [facility] [address] [place] [address], Creatinine [Mass/Vol] 0.72 mg/dL Normal 0.50-1.10 The [facility] Comment on above: Performed By: #### C BC #### [facility] [address] [place] [address], ESTIMATED GFR (CKD-EPI) 94 mL/min/1.73sqm Normal >=60 The [facility] Comment on above: Performed By: #### C BC #### [facility] [address], [place], Glucose [Mass/Vol] 87 mg/dL Normal 68-110 The [facility] Comment on above: Performed By: #### C BC #### [facility] [address], [place], Potassium [Moles/Vol] 4.6 mmol/L Normal 3.3-5.3 The [facility] Comment on above: Performed By: #### C BC #### [facility] [address], [place], Sodium [Moles/Vol] 141 mmol/L Normal 135-148 [facility] Comment on above: Performed By: #### C BC #### [facility] [address], [place], Urea nitrogen [Mass/Vol] 11 mg/dL Normal 8-22 The [facility] Comment on above: Performed By: #### C BC #### [facility] [address], [place], CBC WITH DIFFERENTIALon - Basophils (Bld) [#/Vol] 0.09 10*3/uL Normal 0.00-0.20 The [facility] Comment on above: Performed By: #### C BCDSAT ####[facility] [id number] [place], [place], Basophils/100 WBC (Bld) 0.9 % Normal <=1.9 The [facility] Comment on above: Performed By: #### C BCDSAT ####[facility] [id number] [place], [place], Eosinophils (Bld) [#/Vol] 0.12 10*3/uL Normal 0.00-0.70 The [facility] Comment on above: Performed By: #### C BCDSAT ####S PATHOLOGY [id number] [place], [place], Eosinophils/100 WBC (Bld) 1.3 % Normal 0.1-4.0 The [facility] Comment on above: Performed By: #### C BCDSAT ####S PATHOLOGY [id number] [place], [place], Erythrocyte distribution width (RBC) [Ratio] 14.1 % Normal 11.5-14.5 The [facility] Comment on above: Performed By: #### C BCDSAT ####[facility] [id number] [place], [place], Hematocrit (Bld) [Volume fraction] 38.4 % Normal 36.0-46.0 The [facility] Comment on above: Performed By: #### C BCDSAT ####[facility] [id number] [place], [place], Hemoglobin (Bld) [Mass/Vol] 12.9 g/dL Normal 12.0-15.0 The [facility] Comment on above: Performed By: #### C BCDSAT ####[facility] [id number] [place] [address], Lymphocytes (Bld) [#/Vol] 1.82 10*3/uL Normal 1.00-4.80 The [facility] Comment on above: Performed By: #### C BCDSAT ####[facility] [id number] [place], [place], Lymphocytes/100 WBC (Bld) 18.9 % Low 24.0-44.0 The [facility] Comment on above: Performed By: #### C BCDSAT ####[facility] [id number] [place], [place], MCH (RBC) [Entitic mass] 29.9 pg Normal 26.0-34.0 The [facility] Comment on above: Performed By: #### C BCDSAT ####[facility] [id number] [place], [place], MCHC (RBC) [Mass/Vol] 33.6 g/dL Normal 32.0-35.9 The [facility] Comment on above: Performed By: #### C BCDSAT ####[facility] [id number] [place], [place], MCV (RBC) [Entitic vol] 89 fL Normal 80-100 The [facility] Comment on above: Performed By: #### C BCDSAT ####S PATHOLOGY [id number] [place], [place], MONOCYTE DISTRIBUTION WIDTH Normal The [facility] Comment on above: Performed By: #### C BCDSAT ####S PATHOLOGY [id number] [place], [place], Monocytes (Bld) [#/Vol] 0.60 10*3/uL Normal 0.20-1.00 The [facility] Comment on above: Performed By: #### C BCDSAT ####[facility] [id number] [place], [place], Monocytes/100 WBC (Bld) 6.3 % Normal 2.0-11.0 The [facility] Comment on above: Performed By: #### C BCDSAT ####[facility] [id number] [place], [place], Neutrophils (Bld) [#/Vol] 6.98 10*3/uL Normal 1.50-8.00 The [facility] Comment on above: Performed By: #### C BCDSAT ####[facility] [id number] [place], [place], Neutrophils/100 WBC (Bld) 72.6 % Normal 31.0-76.0 The [facility] Comment on above: Performed By: #### C BCDSAT ####[facility] [id number] [place], [place], Platelet mean volume (Bld) [Entitic vol] 7.7 fL Normal 7.5-11.2 The [facility] Comment on above: Performed By: #### C BCDSAT ####S PATHOLOGY [id number] [place], [place], Platelets (Bld) [#/Vol] 397 10*3/uL Normal 150-400 The [facility] Comment on above: Performed By: #### C BCDSAT ####S PATHOLOGY [id number] [place], [place], RBC (Bld) [#/Vol] 4.32 10*6/uL Normal 4.00-5.20 [facility] Comment on above: Performed By: #### C BCDSAT ####[facility] [id number] [place], [place], WBC (Bld) [#/Vol] 9.6 10*3/uL Normal 4.5-11.5 The [facility] Comment on above: Performed By: #### C BCDSAT ####[facility] [id number] [place], [place], PSE Call [facility] [place] Chemistry Department Chair Authentication Interface Message Text Telephone History Angelica Buckner, [id number] 12/03/2020 Patient was identified by name and date of . Phone PSE completed - pt with recent hospitalization, lives in [place]. COVID VACCINE: [employer] SARS-COV-2 (COVID-19) vaccine, mRNA, spike protein, LNP, preservative free, 30 mcg/0.3mL dose (HGF=972) 07/21/2020 , 06/30/2020 55 year old 5'3 230 lbs Date of Surgery: 12/09 Surgeon: Lisa Type of Surgery: LAPAROSCOPY, SIGMOID OR LEFT HEMICOLECTOMY HISTORY OF PRESENT ILLNESS: telephone history prior to the upcoming surgery at [facility]. Please enter through the emergency department entrance doors. Take the F elevators to the 1st floor. Check-in at the O.R. desk, 1st floor. Partial Hospital DC Summary 11/20/2020 - [place] Significant Findings ??? CT scan from OSH showed diverticulitis with perforation and abscess. ??? Successful pelvic abscess drainage with placement of a 10F pigtail drainage catheter per IR, 30mL of purulent fluid aspirated ???Hospital Course ??? Presented to ED on 11/19/20 from OSH with abdominal pain, CY showing diverticulitis with perforation and abscess. Pt was admitted to [facility], made NPO, started on IV Zosyn, and given DVT prophylaxis. ??? IR successfully placed drain on 11/20/2020, aspirating 30mL of purulent fluid. ??? Tolerated procedure well w/ no complications; please see separately dictated note for details. ??? Diet was slowly advanced as tolerated and pain control was transitioned to PO. ??? Pt received instructions from nursing on how to care for drain at-home. ??? Pt was discharged home in stable condition on 11/21/20 with instructions to follow-up as an outpatient on 12/03/2020. ??? At time of discharge, pt was afebrile, AVSS, and pain was well-controlled. She was tolerating a GI soft diet, voiding without issue, and ambulating independently. ??? STOP-BANG Row Name Nurse Visit from 12/03/2020 in [facility] Pre Surgical Evaluation History of sleep apnea? No Snoring No Tired/Fatigued No Observed Apnea No Pressure: Hypertension (!) Yes BMI > 35 1 Age > 50 1 Neck circ > 40cm (15.75 ) Unable to Assess Gender male? 0 Score (!) 3 EXERCISE CAPACITY: 4-10 mets ALLERGIES: Patient has no known allergies. PREVIOUS ANESTHETIC EXPERIENCES AND INTUBATION HISTORY: No previous anesthetic complication FAMILY HISTORY OF ANESTHETIC COMPLICATIONS: No PAST MEDICAL HISTORY: Past Medical History: Diagnosis Date * Diverticulitis Drain placed * HTN (hypertension) * Hypothyroidism PROBLEM LIST: Patient Active Problem List: Abscess of sigmoid colon due to diverticulitis [K57.20] REVIEW OF SYSTEMS: Eyes/Ears: Eye Glasses-reading Teeth Upper Denture and Missing Teeth Pulmonary: Former smoker Denies SOB, wheezes, fever, chills, increased sputum, or general malaise. Cardiovascular: HTN Denies: CP, SOB, palpitations, dizziness, or syncope. Gastrointestinal: Diarrhea, H/o Diverticulitis, Abscess sigmoid colon, Now scheduled for LAPAROSCOPY, SIGMOID OR LEFT HEMICOLECTOMY Renal/Genitourinary: Negative Musculoskeletal: Negative Endocrine: Thyroid disease and Obesity Hematologic: Anemia-resolved Neurologic: Negative Psychiatric: Light anxiety Gynecologic:PM Constitutional:Negativ e Skin: Reports abdominal drain, intact (pigtail drain) CBC (last 3 years, up to 5 values) WBC RBC Hgb Hct MCV RDW Plt 12/03/20 1511 9.6 4.32 12.9 38.4 89 14.1 397 11/21/20 0031 8.9 3.47 10.7 30.9 89 13.3 254 11/20/20 0228 11.9 3.38 10.3 30.0 89 13.1 244 11/19/202102 12.4 3.62 10.7 32.4 90 13.4 274 Basic Metabolic Panel Na K Cl CO2 Gap Glu BUN Cr Ca 12/03/20 1511 141 4.6 102 25 19 87 11 0.72 9.7 11/21/20 0031 137 3.7 106 23 12 89 11 1.00 8.0 11/20/20227 137 3.3 105 21 14 96 18 1.29 8.0 11/19/202102 139 3.8 Comment: Hemolysis present 105 23 15 96 19 1.33 8.2 Type AND Screen (Last result in the past 30 days) ABO Rh Screen Int. 12/03/20 1511 O Positive Negative LFT's (last 3 years, up to 5 values) None Lipids (last 3 years, up to 5 values) None PT/PTT/INR (last 3 years, up to 5 values) PT aPTT INR 11/20/208 28 11/20/20 0228 1.49 No results found for: HBA1C Last troponin series: No results found for: TROPONIN8 No results found for: TROPONIN4 No results found for: TROPONIN PAST SURGICAL HISTORY: Past Surgical History: Procedure Laterality Date * HERNIA REPAIR 2015 triple surgery SOCIAL HISTORY: Social History Socioeconomic History * Marital status: Spouse name: Not on file * Number of children: Not on file * Years of education: Not on file * Highest education level: Not on file Tobacco Use * Smoking status: Former Smoker Packs/day: 1.00 Years: 25.00 Pack years: 25.00 Types: Cigarettes Quit date: 2014 Years since quittin.7 * Smokeless tobacco: Never Used Substance and Sexual Activity * Alcohol use: Not Currently * Drug use: Not Currently Social Determi (more content not included)... Normal [facility] Patient Instructionson 12-03 Chemistry Department Chair Authentication Interface Message Text Surgery Date: 12/09/20 Begin Prep Date:12/08/20 Start drinks 12/04/20 3 shakes a day for 5 Days prior to surgery. Presurgical Evaluation 3 pm today by Phone Instructions for Mechanical Bowel Prep with Golytely and Oral antibiotics 1. Fill the prescriptions for Golytely, Neomycin, and Flagyl 2. Mix the Golytely solution following the instructions on the container 3. The Golytely will cause you to have multiple bowel movements A. Stay near a toilet B. Apply Vaseline or Rafael to the skin around your anus to protect it before starting the Golytely The day before your surgery: - Prepare Golytely and place in refrigerator. Do not add ice to the liquid it will just add more to drink. Begin drinking at 2 pm. - You must stay on a clear liquid diet all day. It is OK to have: o Water o Clear Carbonated Beverages o Fruit juices (no pulp) Cranberry, Apple o Popsicles (NO RED OR PURPLE) o Jell-O, Gelatin o Clear broth any flavor Beef, Chicken, Letcher, Vegetable o Coffee and tea (no cream) No Milk products o Impact Advanced Recovery Immuno- nutrition drink o The day before your surgery (continued): 1. At 1 pm, take Neomycin 2 tablets and Flagyl 1 tablet. 2. At 2 pm, take Neomycin 2 tablets and Flagyl 1 tablet. Start drinking the Golytely. * Drink an 8-ounce glass every 10 minutes until the container is emptied. Bowel movements should begin within about 1 hour of your first drink but could take a few hours. * By the time you drink your last glass, your stools should be clear (not brown). * Feeling bloated or full after the first few glasses is common because of how much you are drinking. This feeling should go away once you start moving your bowels. If you feel nauseated or throw up, wait 15 minutes then start drinking again. * If you develop abdominal pain, cramping, vomiting stop drinking. Call if you cannot finish the prep 3. At 11 pm, take Neomycin 2 tablets and Flagyl 1 tablet. On the day of your surgery: - You will drink the Boost Breeze (or G2 lower sugar Gatorade for diabetic patients) 3 hours prior to schedule surgery time. - If you take medicines for your heart, asthma, or seizures, take them with a small sip of water first thing in the morning or How you directed in your PSE appointment. - Questions or Concerns after hours. PLEASE call [phone].Ask for General Surgery surgeon hr consultant Normal [facility] Progress Noteson 12-03-2020 Chemistry Department Chair Authentication Interface Message Text [facility] Follow up Visit Patient identified by name and date of . HPI: 55 yo female with hx of diverticulitis with perforation and abscess, was inpatient and had IR drain placed and was discharged. She is now seen for pre-op marking prior to lap sigmoid or left hemicolectomy with possible ostomy on 12/09/[address] Gonzalez. No Known Allergies ROS: GI: drain site Neuro: ambulating Exam: General: A+Ox3, ambulated to room independently. Educated patient in need for pre-surgical marking. Educated on upcoming surgery, purpose and function of stoma. Patient verbalized understanding of reason for marking and gave permission to juno abdomen. Abdomen is rounded and slightly off center when patient sitting and examined while patient is lying, sitting. Patient marked in all 4 quadrants using marking pen and areas covered with transparent film. Patient instructed to not wash off markings and to replace transparent film when lifting. Extra transparent dressings given to patient. Patient in agreement with current markings. Also made aware that the final location will be determined in OR and that the ostomy may not be in the exact locations that are marked if it is not functionally possible. Patient education: Patient given [employer] information booklet and sample pouches to take home. Impression: 55 yo female marked for ostomy. Plan: inpatient WOCNs to follow Monica Baca, [employer]CR[employer]- SALES MERCH[employer]IS[employer], CWOCN Normal [facility] TYPE AND SCREENon 12-03-2020 ABO and Rh group Nom (Bld) Blood group O Rh(D) positive Normal [facility] Comment on above: Performed By: #### P T, APTT #### [facility] [address] [place] [address], ABO and Rh group Nom (Bld) No Previous Results Normal [facility] Comment on above: Performed By: #### P T, APTT #### [facility] [address], [place], ABSC INT Negative Normal [facility] Comment on above: Performed By: #### P T, APTT #### [facility] [address] [place] [address], Telephone Encounteron 2020 Chemistry Department Chair Authentication Interface Message Text Received page from [place] Monahan RN stating pt called with question about receiving messages and calls from [employer] RN informed pt that [employer] is her DME company so these messages were regarding wound care supplies. Pt also mentioned new drainage from her IR drain site for which the green surgery team was paged. I returned the patient's call and spoke with her and her daughter. She states that she has noticed some yellow and crusty drainage near her drain site. She states that prior to today, the site was not draining and she was changing the dressing every other day. She states she slept very well last night and was on her side and possibly applied pressure to the drain. She denies an increase in pain or warmth around the site and denies fevers or chills. She states her drain has been continuing to put out purulent to seropurulent fluid into the bag. She has been taking her Augmentin as prescribed and states she has about 11 pills left. I reassured pt that some amount of drainage around the site is normal and instructed to change dressing daily. I encouraged patient and her daughter to continue to monitor the drain site and instructed to call if there is an increase of drainage, or if she develops fever and chills or warmth or redness at the area. Pt also instructed to continue taking Augmentin as prescribed and follow-up with Dr. Cardona as scheduled on 12/03/20. Pt expressed understanding and agreed to the above. She had no other questions at this time. Normal [facility] Chemistry Department Chair Authentication Interface Message Text Situation: Pt states she is getting messages from [employer] and she does not know why they are calling her Background: Pt was discharged with DME orders for wound care supplies Assessment: N/A Recommendation: Pt advised that [employer] is her DME company All questions answered for patient Pt mentioned her drainage site had some goopy drainage around the drain Pt states she slept really well last night and she may have placed some pressure to the drain Patient states she had some slight pink drainage yesterday and just now she is seeing some purulent drainage and the site is having some redness around it that is increasing. Dtr states there is a lot of pus today Pt has one more week of antibiotics, denies fever Placed a page to Surgery Green team provider at this time Angelique ROTH returned the call and will reach out to the patient at this time Normal [facility] Telephone Encounteron 2020 Chemistry Department Chair Authentication Interface Message Text Pt called stating her sodium chloride flushes ordered today are not available at her preferred pharmacy. Pt requested rx be transferred to alternate pharmacy. Advice RN spoke w/ RPceleste Bartholomew. Verbal given. [facility] states she will fill for pt today. Advice RN called pt to update her on above. Pt verbalized understanding. Normal [facility] Telephone Encounteron 2020 Chemistry Department Chair Authentication Interface Message Text Situation: Pt calling about 10 ml normal saline (NS) flushes and one week follow up appt. Background: Pt stated she was only given a handful of NS flushes in the hospital and down to 9 of them. Does have Rx written by [facility] on 11/21 but unsure if pharmacy is shipping them to her home or what. See earlier encounter today 11/23. Dr Cardona told pt when MD spoke to her today that MD would see her Wed.(would be 11/26) but pt has no appt scheduled that day. Pt's scheduled appt is 12/03 at [address] [facility]ona in [facility] Surgery. Pt lives in [place] near [place] so needs to make transportation arrangements. Assessment: Gave pt pharmacy # [phone] to call Tu morning about NS Rx. Instructed pt to call surgery Tues AM to schedule 11/26 appt. Recommendation: Nurse also sending refill request for NS flushes since pt received a handful not the 90 that was ordered. [facility] [place] [address]? Normal [facility] Chemistry Department Chair Authentication Interface Message Text Patient calling; three identifiers verified. Situation: Appointment clarification. Background: Patient states she has a scheduled 12/03/20 Dr. Cardona appointment, but Dr. Cardona advised her this morning it is on 11/26/20. States she lives an hour [place] a half away and will need to arrange transportation if it's on 11/26/20. Per [facility] the appointment is scheduled on 12/03/20. Assessment: Patient asking Dr. Cardona to clarify what date she wants to see her, and if it's something like a wound check that I can see my family doctor where I live, I'd rather do that. Recommendation: Patient can be reached at [phone]. In order to prevent delays in care, please forward this message to your clinic nurse pool for any required follow up. Thank you. Normal [facility] Chemistry Department Chair Authentication Interface Message Text I spoke to Ms. Buckner this morning. She is taking Augmentin BID. I told her her not to take the cipro/flagyl she has from her regular doctor. She is going to follow up on 11/26/2020 at [place]. Yudy Cardona MD Normal [facility] Telephone Encounteron 2020 Chemistry Department Chair Authentication Interface Message Text Situation: Pt calling with post op questions. Background: Pt came from outside hospital for abscess of colon from diverticulitis on 11/19. Pt stated she received Cipro and Flagyl from her doctor but never started the Rx because was sent to . Is she supposed to take those antibiotics? Was told to take dulcosate because oxycodone causes constipation. Pt currently having orange diarrhea, 2 stools already today; urinated 1 hr ago Denies drainage or bleeding from wound site, no fever. Pt reading AVS and says she's to come back for wound check in a week. Current appt with Dr Cardona is 12/03 which is more than a week. Assessment: Pt has post op questions. Pt should be taking the Augmentin as prescribed instead of Flagyl AND Cipro. If pt now having diarrhea, don't need dulcosate unless pt getting constipated. Recommendation: Monitor for bleeding, dehydration and fever or it pt is worse. Call surgery dept on 11/25 to see if her 12/03 appt will include wound check or needs to be seen sooner than 12/03. Normal [facility] BASIC METABOLIC PANELon Anion gap [Moles/Vol] 12 mmol/L Normal 5-13 [facility] Comment on above: Performed By: #### P T, APTT #### [facility] [address] [place], [id number] Calcium [Mass/Vol] 8.0 mg/dL Low 8.4-10.4 The [facility] Comment on above: Performed By: #### P T, APTT #### [facility] [address] [place], [address] Chloride [Moles/Vol] 106 mmol/L Normal 97-111 The [facility] Comment on above: Performed By: #### P T, APTT #### [facility] [address] [place] [address], CO2 [Moles/Vol] 23 mmol/L Normal 21-30 The [facility] Comment on above: Performed By: #### P T, APTT #### [facility] [address] [place] [address], Creatinine [Mass/Vol] 1.00 mg/dL Normal 0.50-1.10 [facility] Comment on above: Performed By: #### P T, APTT #### [facility] [address] [place] [address], ESTIMATED GFR (CKD-EPI) 63 mL/min/1.73sqm Normal >=60 The [facility] Comment on above: Performed By: #### P T, APTT #### [facility] [address] [place] [address], Glucose [Mass/Vol] 89 mg/dL Normal 68-110 The [facility] Comment on above: Performed By: #### P T, APTT #### [facility] [address] [place] [address], Potassium [Moles/Vol] 3.7 mmol/L Normal 3.3-5.3 The [facility] Comment on above: Performed By: #### P T, APTT #### [facility] [address] [place] [address], Sodium [Moles/Vol] 137 mmol/L Normal 135-148 [facility] Comment on above: Performed By: #### P T, APTT #### [facility] [address] [place] [address], Urea nitrogen [Mass/Vol] 11 mg/dL Normal 8-22 [facility] Comment on above: Performed By: #### P T, APTT #### [facility] [address] [place] [address], COMPLETE BLOOD COUNTon 11-21 Erythrocyte distribution width (RBC) [Ratio] 13.3 % Normal 11.5-14.5 The [facility] Comment on above: Performed By: #### P T, APTT #### [facility] [address], [place], Hematocrit (Bld) [Volume fraction] 30.9 % Low 36.0-46.0 The [facility] Comment on above: Performed By: #### P T, APTT #### [facility] [address] [place] [address], Hemoglobin (Bld) [Mass/Vol] 10.7 g/dL Low 12.0-15.0 The [facility] Comment on above: Performed By: #### P T, APTT #### [facility] [address], [place], MCH (RBC) [Entitic mass] 30.7 pg Normal 26.0-34.0 The [facility] Comment on above: Performed By: #### P T, APTT #### [facility] [address] [place] [address], MCHC (RBC) [Mass/Vol] 34.4 g/dL Normal 32.0-35.9 The [facility] Comment on above: Performed By: #### P T, APTT #### [facility] [address] [place] [address], MCV (RBC) [Entitic vol] 89 fL Normal 80-100 The [facility] Comment on above: Performed By: #### P T, APTT #### [facility] [address] [place] [address], Platelet mean volume (Bld) [Entitic vol] 8.0 fL Normal 7.5-11.2 The [facility] Comment on above: Performed By: #### P T, APTT #### [facility] [address], [place], Platelets (Bld) [#/Vol] 254 10*3/uL Normal 150-400 The [facility] Comment on above: Performed By: #### P T, APTT #### [facility] [address] [place] [address], RBC (Bld) [#/Vol] 3.47 10*6/uL Low 4.00-5.20 [facility] Comment on above: Performed By: #### P T, APTT #### [facility] [address], [place], WBC (Bld) [#/Vol] 8.9 10*3/uL Normal 4.5-11.5 The [facility] Comment on above: Performed By: #### P T, APTT #### [facility] [address], [place], Care Plan Noteon 11-21-2020 Chemistry Department Chair Authentication Interface Message Text Problem: Routine Care: Goal: Patient care will be managed and maintained throughout hospital stay per unit specific routine care procedure 11/21/2020 1724 by John Bailey RN Outcome: Adequate for Discharge 11/21/2020 1038 by John Bailey RN Outcome: Progressing Problem: Safety: Goal: Patient will remain free of falls during hospital stay 11/21/2020 1724 by John Bailey RN Outcome: Adequate for Discharge 11/21/2020 1038 by John Bailey RN Outcome: Progressing Goal: Free from injury during hospitalization 11/21/2020 1724 by John Bailey RN Outcome: Adequate for Discharge 11/21/2020 1038 by John Bailey RN Outcome: Progressing Problem: Acute Pain: Goal: Ability to identify pain intensity on a pain scale and rate it consistently will be achieved and maintained 11/21/2020 1724 by John Bailey RN Outcome: Adequate for Discharge 11/21/2020 1038 by John Bailey RN Outcome: Progressing Goal: Acceptable level of pain which allows the patient to achieve functional outcome goals 11/21/2020 1724 by John Bailey RN Outcome: Adequate for Discharge 11/21/2020 1038 by John Bailey RN Outcome: Progressing Problem: VTE Prophylaxis: Goal: Will be free of DVT 11/21/2020 1724 by John Bailey RN Outcome: Adequate for Discharge 11/21/2020 1038 by John Bailey RN Outcome: Progressing Problem: Discharge Planning: Goal: Discharge needs of the adult patient will be met 11/21/2020 1724 by Bailey, John, RN Outcome: Adequate for Discharge 11/21/2020 1038 by John Bailey, RN Outcome: Progressing IV removed, education given on drain to patient, and daughter. Meds delivered bedside, given supplies for drain flushing and dressing changes. Reviewed DC orders and meds, no questions at this time, Dcd home. Normal [facility] Chemistry Department Chair Authentication Interface Message Text Problem: Routine Care: Goal: Patient care will be managed and maintained throughout hospital stay per unit specific routine care procedure Outcome: Progressing Problem: Safety: Goal: Patient will remain free of falls during hospital stay Outcome: Progressing Goal: Free from injury during hospitalization Outcome: Progressing Problem: Acute Pain: Goal: Ability to identify pain intensity on a pain scale and rate it consistently will be achieved and maintained Outcome: Progressing Goal: Acceptable level of pain which allows the patient to achieve functional outcome goals Outcome: Progressing Problem: VTE Prophylaxis: Goal: Will be free of DVT Outcome: Progressing Problem: Discharge Planning: Goal: Discharge needs of the adult patient will be met Outcome: Progressing Pt resting in bed, tolerating advanced diet. Pain controlled. Pt says she may go home. Normal [facility] MAGNESIUMon 11-21-2020 Magnesium [Mass/Vol] 2.1 mg/dL Normal 1.6-2.8 [facility] Comment on above: Performed By: #### P T, APTT #### [facility] [address] [place] [address], PHOSPHORUSon 11-21-2020 Phosphate [Mass/Vol] 3.6 mg/dL Normal 2.5-4.8 [facility] Comment on above: Performed By: #### P T, APTT #### [facility] [address], [place], Progress Noteson 11-21-2020 Chemistry Department Chair Authentication Interface Message Text Attestation signed by Brendan, Yudy Meléndez MD at 11/25/2020 9:19 PM PA attestation: I reviewed the PA's documentation and discussed the patient with the PA on the date of this note. I agree with the PA's medical decision making as documented in their note. Yudy Cardona MD GREEN SURGERY PROGRESS NOTE Interval history/Events: ??? IR drain placed yesterday ??? WBC 8.9 today from 11.9 yesterday ??? Pain moderately controlled. States her pain has increased from yesterday, notes it is specifically at the drain site, not the inside ??? Tolerated CLD overnight, no n/v ??? Endorses diarrhea, no blood in stool ??? Voiding without difficulty ??? Ambulating to bathroom ??? Using IS Objective: Tmax (24 hours): 100.1 ???F (37.8 ???C) Pulse Av.1 Min: 64 Max: 82 Systolic (24hrs), Av , Min:111 , Max:153 Diastolic (24hrs), Av, Min:49, Max:70 SpO2 Av.8 % Min: 94 % Max: 100 % Resp Av.1 Min: 16 Max: 18 Intake/Output Summary (Last 24 hours) at 11/21/2020 0823 Last data filed at 11/21/2020 0600 Gross per 24 hour Intake 2785 ml Output 40 ml Net 2745 ml Physical Exam: Gen: NAD, Alert and oriented, resting in bed Pulm: Non labored breathing on RA , no conversational dyspnea Heart: Regular rate per chart Abd: Soft, ND, increased tenderness to palpation, IR drain in place with purulent drainage Ext: Warm and well perfused, No edema, SCDs in place Labs: CBC/PT/INR WBC RBC Hgb Hct MCV RDW Plt PT aPTT INR 11/21/20 0031 8.9 3.47 10.7 30.9 89 13.3 254 11/20/20 0228 28 11/20/208 1.49 11/20/20227 11.9 3.38 10.3 30.0 89 13.1 244 11/19/202102 12.4 3.62 10.7 32.4 90 13.4 274 Basic Metabolic Panel Na K Cl CO2 Gap Glu BUN Cr Ca Mg PO4 11/21/20 003 2.1 11/21/2030 3.6 11/21/2030 137 3.7 106 23 12 89 11 1.00 8.0 11/20/20227 4.0 11/20/20227 2.1 11/20/20227 137 3.3 105 21 14 96 18 1.29 8.0 11/19/202102 2.1 Comment: Hemolysis present 11/19/202102 4.1 11/19/202102 139 3.8 Comment: Hemolysis present 105 23 15 96 19 1.33 8.2 Studies/imaging: No new studies to be reviewed. ----- Medications: Scheduled * metoprolol 25 mg 2x Daily * piperacillin/tazobacta m 3.375 g Q6H Antibiotic * levothyroxine 75 mcg Before Breakfast * enoxaparin 40 mg Daily * acetaminophen 650 mg q6h PRN * oxyCODONE 5 mg Q6H PRN Or * oxyCODONE 10 mg Q6H PRN * bacitracin Daily PRN * HYDROmorphone HCl PF 0.2 mg Q3H PRN * albuterol 2 Puff Q6H PRN IV * lactated ringers 75 mL/hr at 11/20/20 1758 Assessment: Angelica Buckner is a 55 year old female who presented yesterday from OSH with concern for perforated diverticulitis and pelvic abscess. IR drain placed 11/20/20. WBC down to 8.9. Plan: Feeding: advance to GI soft diet Analgesia: Pain control with scheduled Tylenol, oxycodone 5/10, dilaudid for breakthrough Volume: IVF at LR 75ml/hr, replete electrolytes prn OT/PT: Ambulate as tolerated Respiratory: Incentive Spirometry x 10 hour Infection: continue 3.375mg IV zosyn Embolic Prophylaxis: OOB and ambulation, Lovenox and SCDs Heart: Monitor vital signs Glycemic: No glycemic issues indicated Special: Continue Synthroid. Drain teaching today for home-going drain care Dispo: Continue on RNF, possible dc home later today w/ PO abx pending diet advancement tolerated and pain is controlled Patient was seen with chief resident Dr. Garber and d/w Attending Surgeon Dr. Times. Angelique Kimbrough, PA-C General Surgery Normal [facility] AEROBIC WOUND CULTUREon AEROBIC WOUND CULTURE C PYOG: No Growth GRAM STAIN: 4+ Polymorphonuclear Leukocytes No Squamous Epithelial Cells seen No organisms seen Normal [facility] Comment on above: Performed By: #### C PYOG ####[facility] [id number] [place], [place] ANAEROBIC CULTURE, MISCon ANAEROBIC CULTURE, MISC C ANRBC: Positive Culture Report PREVOTELLA SPECIES Anaerobic culture yields Prevotella species BETA-LACTAMASE: Positive Normal [facility] Comment on above: Performed By: #### C ANRBC ####[facility] [id number] [place], [place] BASIC METABOLIC PANELon Anion gap [Moles/Vol] 14 mmol/L High 5-13 [facility] Comment on above: Performed By: #### CHERYL Neal CH8 #### [facility] [address] [place] [address], Calcium [Mass/Vol] 8.0 mg/dL Low 8.4-10.4 [facility] Comment on above: Performed By: #### CHERYL Neal CH8 #### [facility] [address], [place], Chloride [Moles/Vol] 105 mmol/L Normal 97-111 [facility] Comment on above: Performed By: #### CHERYL Neal CH8 #### [facility] [address] [place] [address], CO2 [Moles/Vol] 21 mmol/L Normal 21-30 The [facility] Comment on above: Performed By: #### CHERYL Neal CH8 #### [facility] [address] [place] [address], Creatinine [Mass/Vol] 1.29 mg/dL High 0.50-1.10 [facility] Comment on above: Performed By: #### CHERYL Neal CH8 #### [facility] [address] [place] [address], ESTIMATED GFR (CKD-EPI) 46 mL/min/1.73sqm Low >=60 [facility] Comment on above: Performed By: #### CHERYL Neal CH8 #### [facility] [address] [place] [address], Glucose [Mass/Vol] 96 mg/dL Normal 68-110 [facility] Comment on above: Performed By: #### CHERYL Neal CH8 #### [facility] [address] [place] [address], Potassium [Moles/Vol] 3.3 mmol/L Normal 3.3-5.3 [facility] Comment on above: Performed By: #### CHERYL Neal CH8 #### [facility] [address] [place] [address], Sodium [Moles/Vol] 137 mmol/L Normal 135-148 [facility] Comment on above: Performed By: #### CHERYL Neal CH8 #### [facility] [address] [place] [address], Urea nitrogen [Mass/Vol] 18 mg/dL Normal 8-22 [facility] Comment on above: Performed By: #### CHERYL Neal CH8 #### [facility] [address] [place] [address], COMPLETE BLOOD COUNTon 11-20 Erythrocyte distribution width (RBC) [Ratio] 13.1 % Normal 11.5-14.5 [facility] Comment on above: Performed By: #### P T, APTT #### [facility] [address] [place] [address], Hematocrit (Bld) [Volume fraction] 30.0 % Low 36.0-46.0 The [facility] Comment on above: Performed By: #### P T, APTT #### [facility] [address] [place] [address], Hemoglobin (Bld) [Mass/Vol] 10.3 g/dL Low 12.0-15.0 The [facility] Comment on above: Performed By: #### P T, APTT #### [facility] [address], [place], MCH (RBC) [Entitic mass] 30.5 pg Normal 26.0-34.0 The [facility] Comment on above: Performed By: #### P T, APTT #### [facility] [address] [place] [address], MCHC (RBC) [Mass/Vol] 34.4 g/dL Normal 32.0-35.9 The [facility] Comment on above: Performed By: #### P T, APTT #### [facility] [address] [place] [address], MCV (RBC) [Entitic vol] 89 fL Normal 80-100 The [facility] Comment on above: Performed By: #### P T, APTT #### [facility] [address] [place] [address], Platelet mean volume (Bld) [Entitic vol] 8.0 fL Normal 7.5-11.2 The [facility] Comment on above: Performed By: #### P T, APTT #### [facility] [address] [place] [address], Platelets (Bld) [#/Vol] 244 10*3/uL Normal 150-400 The [facility] Comment on above: Performed By: #### P T, APTT #### [facility] [address], [place], RBC (Bld) [#/Vol] 3.38 10*6/uL Low 4.00-5.20 The [facility] Comment on above: Performed By: #### P T, APTT #### [facility] [address] [place] [address], WBC (Bld) [#/Vol] 11.9 10*3/uL High 4.5-11.5 The [facility] Comment on above: Performed By: #### P T, APTT #### [facility] [address], [place], Care Plan Noteon 11-20-2020 Chemistry Department Chair Authentication Interface Message Text Problem: Routine Care: Goal: Patient care will be managed and maintained throughout hospital stay per unit specific routine care procedure Outcome: Progressing Purposeful rounding and assessments performed per protocol Problem: Safety: Goal: Patient will remain free of falls during hospital stay Outcome: Progressing Goal: Free from injury during hospitalization Outcome: Progressing Call light within reach Problem: Acute Pain: Goal: Ability to identify pain intensity on a pain scale and rate it consistently will be achieved and maintained Outcome: Progressing Goal: Acceptable level of pain which allows the patient to achieve functional outcome goals Outcome: Progressing Problem: VTE Prophylaxis: Goal: Will be free of DVT Outcome: Progressing Subcutaneous Lovenox Problem: Discharge Planning: Goal: Discharge needs of the adult patient will be met Outcome: Progressing Discharge plan in evolution. Will discuss with MD during rounds Normal The [facility] Chemistry Department Chair Authentication Interface Message Text Problem: Routine Care: Goal: Patient care will be managed and maintained throughout hospital stay per unit specific routine care procedure Outcome: Progressing Problem: Safety: Goal: Patient will remain free of falls during hospital stay Outcome: Progressing Goal: Free from injury during hospitalization Outcome: Progressing Problem: Acute Pain: Goal: Ability to identify pain intensity on a pain scale and rate it consistently will be achieved and maintained Outcome: Progressing Goal: Acceptable level of pain which allows the patient to achieve functional outcome goals Outcome: Progressing Problem: VTE Prophylaxis: Goal: Will be free of DVT Outcome: Progressing Problem: Discharge Planning: Goal: Discharge needs of the adult patient will be met Outcome: Progressing Normal [facility] H AND Cameron 11-20-2020 Chemistry Department Chair Authentication Interface Message Text See consult note from same day for full details. In brief: ASSESSMENT/RECOMMENDAT IONS: Angelica Buckner is a 55 year old female who presents with concern for perforated diverticulitis and pelvic abscess. ??? - admit to colorectal surgery, Times - abx: zosyn - NPO after midnight, IVF LR@75/hr - ok to drink until midnight tonight - coags ordered for AM - lovenox 40 mg - will plan for IR evaluation in AM ??? Normal [facility] MAGNESIUMon 11-20-2020 Magnesium [Mass/Vol] 2.1 mg/dL Normal 1.6-2.8 [facility] Comment on above: Performed By: #### CHERYL Neal CH8 #### [facility] [address] [place] [address], PARTIAL THROMBOPLASTIN TIMEo n 11-20-2020 aPTT Coag (Bld) [Time] 28 s Normal 25-37 [facility] Comment on above: Performed By: #### P T, APTT #### [facility] [address] [place] [address], PHOSPHORUSon 11-20-2020 Phosphate [Mass/Vol] 4.0 mg/dL Normal 2.5-4.8 [facility] Comment on above: Performed By: #### CHERYL Neal CH8 #### [facility] [address] [place] [address], PROTHROMBIN TIME AND INRon 0 11-20-2020 INR Coag (PPP) [Relative time] 1.49 {INR} High 0.90-1.10 [facility] Comment on above: Performed By: #### P T, APTT #### [facility] [address] [place] [address], PT Coag (PPP) [Time] 16.8 s High 9.7-12.9 [facility] Comment on above: Performed By: #### P T, APTT #### [facility] [address] [place] [address], Progress Noteson 11-20-2020 Chemistry Department Chair Authentication Interface Message Text Attestation signed by Brendan, Yudy Meléndez MD at 11/25/2020 9:18 PM Cosign note for PA: I saw and evaluated the patient. I personally obtained the reese and critical portions of the history and physical exam on the date of this note. I reviewed the PA's documentation and discussed the patient with the PA. I agree with the PA's medical decision making as documented in their note. I reviewed the anatomy of the colon. I reviewed the most recent CT scan with the patient. I discussed the recurrence rate for uncompicated diverticulitis of 13-23% and the risk of emergent surgery needing an ostomy of 6%. I discussed the processes associated with complicated diverticulitis: fistulas to the bladder, strictures of the colon, abscesses greater than 3-4 cm. These processes are indications for surgery. Will continue medical management with IR drainage today. Yudy Cardona MD [facility] PROGRESS NOTE Interval history/Events: ??? Pt was transferred from OSH last night. ??? States her pain is 4/10 currently ??? Denies N/V ??? Remains NPO ??? + flatus, + BMs ??? Voiding without difficulty Objective: Tmax (24 hours): 98.9 ???F (37.2 ???C) Pulse Av.3 Min: 61 Max: 72 Systolic (24hrs), Av , Min:120 , Max:139 Diastolic (24hrs), Av, Min:49, Max:63 SpO2 Av % Min: 95 % Max: 97 % Resp Av Min: 16 Max: 20 Intake/Output Summary (Last 24 hours) at 11/20/2020 0722 Last data filed at 11/20/2020 0500 Gross per 24 hour Intake 466.25 ml Output -- Net 466.25 ml Physical Exam: Gen: NAD, Alert and oriented Pulm: Non labored breathing on RA , no conversational dyspnea Heart: Regular rate per chart Abd: Soft, ND, mild-mod TTP in LLQ, midline scar well healed around umbilicus Ext: Warm and well perfused, No edema, SCDs in place Labs: CBC/PT/INR WBC RBC Hgb Hct MCV RDW Plt PT aPTT INR 11/20/208 28 11/20/20227 1.49 11/20/20227 11.9 3.38 10.3 30.0 89 13.1 244 11/19/202102 12.4 3.62 10.7 32.4 90 13.4 274 Basic Metabolic Panel Na K Cl CO2 Gap Glu BUN Cr Ca Mg PO4 11/20/20227 4.0 11/20/20227 2.1 11/20/20227 137 3.3 105 21 14 96 18 1.29 8.0 11/19/202102 2.1 Comment: Hemolysis present 11/19/202102 4.1 11/19/202102 139 3.8 Comment: Hemolysis present 105 23 15 96 19 1.33 8.2 Studies/imaging: No new studies to review at this time ----- Medications: Scheduled * levothyroxine 75 mcg Before Breakfast * enoxaparin 40 mg Daily * acetaminophen 650 mg q6h * piperacillin/tazobacta m 3.375 g Q6H Antibiotic PRN * albuterol 2 Puff Q6H PRN IV * lactated ringers 75 mL/hr at 11/19/202326 Assessment: Angelica Buckner is a 55 year old female who presented yesterday from OSH with concern for perforated diverticulitis and pelvic abscess. Will consult IR today for drainage of pelvic abscess. Plan: Feeding: NPO Analgesia: Pain control with Tylenol Volume: IVF at LR 75ml/hr, replete electrolytes prn OT/PT: Ambulate as tolerated or need PT or OT eval Respiratory: Incentive Spirometry x 10 hour Infection: 3.375mg IV zosyn Transfusion: Not indicated Embolic Prophylaxis: OOB and ambulation, Lovenox and SCDs Heart: Monitor vital signs Glycemic: No glycemic issues indicated Special: Continue Synthroid. Consult IR today for possible drainage of the abscess Dispo: Continue on RNF Patient was seen with chief resident Jcarlos and d/w Attending Surgeon Dr. Times. Eleanor Mcneal PA-C General Surgery Green Pager:[phone] Normal [facility] BASIC METABOLIC PANELon 09-0 Anion gap [Moles/Vol] 15 mmol/L High 5-13 [facility] Comment on above: Performed By: #### P T, APTT #### [facility] [address] [place] [address], Calcium [Mass/Vol] 8.2 mg/dL Low 8.4-10.4 The [facility] Comment on above: Performed By: #### P T, APTT #### [facility] [address] [place] [address], Chloride [Moles/Vol] 105 mmol/L Normal 97-111 [facility] Comment on above: Performed By: #### P T, APTT #### [facility] [address] [place] [address], CO2 [Moles/Vol] 23 mmol/L Normal 21-30 The [facility] Comment on above: Performed By: #### P T, APTT #### [facility] [address] [place] [address], Creatinine [Mass/Vol] 1.33 mg/dL High 0.50-1.10 [facility] Comment on above: Performed By: #### P T, APTT #### [facility] [address] [place] [address], ESTIMATED GFR (CKD-EPI) 45 mL/min/1.73sqm Low >=60 The [facility] Comment on above: Performed By: #### P T, APTT #### [facility] [address] [place] [address], Glucose [Mass/Vol] 96 mg/dL Normal 68-110 [facility] Comment on above: Performed By: #### P T, APTT #### [facility] [address] [place] [address], Potassium [Moles/Vol] 3.8 mmol/L Normal 3.3-5.3 [facility] Comment on above: Result Comment: Hemo lysis present Performed By: #### P T, APTT #### [facility] [address], [place], Sodium [Moles/Vol] 139 mmol/L Normal 135-148 [facility] Comment on above: Performed By: #### P T, APTT #### [facility] [address], [place], Urea nitrogen [Mass/Vol] 19 mg/dL Normal 8-22 [facility] Comment on above: Performed By: #### P T, APTT #### [facility] [address], [place], Basic Metabolic Panelon 0 -2020 Calcium [Mass/Vol] 8.5 mg/dL Normal 8.2-10.2 [facility] Comment on above: Performed By: #### P TT, BMP, LACTIC, PT, HEPATIC, LIPASE, SCAN CBC #### [facility] [address] [place] [address] Chloride [Moles/Vol] 102 mmol/L Normal 95-114 [facility] Comment on above: Performed By: #### P TT, BMP, LACTIC, PT, HEPATIC, LIPASE, SCAN CBC #### [facility] [address] [place] [address] CO2 [Moles/Vol] 20.9 mmol/L Low 22.0-30.0 [facility] Comment on above: Performed By: #### P TT, BMP, LACTIC, PT, HEPATIC, LIPASE, SCAN CBC #### [facility] [address] [place] [address] Creatinine [Mass/Vol] 1.64 mg/dL High 0.44-1.03 [facility] Comment on above: Performed By: #### P TT, BMP, LACTIC, PT, HEPATIC, LIPASE, SCAN CBC #### [facility] [address] [place] [address] Creatinine Clr Calc Pharmacy 45.71 Normal [facility] Comment on above: Performed By: #### P TT, BMP, LACTIC, PT, HEPATIC, LIPASE, SCAN CBC #### [facility] [address] [place] [address] Estimated GFR ( Kassidy 39 Normal [facility] Comment on above: Result Comment: GFR estimated reference range: According to KDOQI guidelines, <60 ml/min/1.73m2 is sufficient to diagnose a patient with chronic kidney disease. Performed By: #### P TT, BMP, LACTIC, PT, HEPATIC, LIPASE, SCAN CBC #### [facility] [address] Estimated GFR (Non- Am 32 Normal [facility] Comment on above: Performed By: #### P TT, BMP, LACTIC, PT, HEPATIC, LIPASE, SCAN CBC #### [facility] [address] Glucose [Mass/Vol] 109 mg/dL High 70-100 [facility] Comment on above: Result Comment: Picacho om Glucose Reference Range is dependent on time and content of last meal. Glucose of more than 200 mg/dL in a nonstressed, ambulatory subject supports the diagnosis of Diabetes Mellitus. ADA recommended reference range Performed By: #### P TT, BMP, LACTIC, PT, HEPATIC, LIPASE, SCAN CBC #### [facility] [address] [id number] [facility] Potassium [Moles/Vol] 3.2 mmol/L Low 3.5-5.1 [facility] Comment on above: Performed By: #### P TT, BMP, LACTIC, PT, HEPATIC, LIPASE, SCAN CBC #### [facility] [address] [id number] [place] Sodium [Moles/Vol] 136 mmol/L Normal 136-146 [facility] Comment on above: Performed By: #### P TT, BMP, LACTIC, PT, HEPATIC, LIPASE, SCAN CBC #### [facility] [address] [id number] [place] Urea nitrogen [Mass/Vol] 23 mg/dL Normal 9-23 [facility] Comment on above: Performed By: #### P TT, BMP, LACTIC, PT, HEPATIC, LIPASE, SCAN CBC #### [facility] [address] [id number] [facility] COMPLETE BLOOD COUNTon 11-19 Erythrocyte distribution width (RBC) [Ratio] 13.4 % Normal 11.5-14.5 [facility] Comment on above: Performed By: #### P T, APTT #### [facility] [address] [place] [address], Hematocrit (Bld) [Volume fraction] 32.4 % Low 36.0-46.0 [facility] Comment on above: Performed By: #### P T, APTT #### [facility] [address] [place] [address], Hemoglobin (Bld) [Mass/Vol] 10.7 g/dL Low 12.0-15.0 [facility] Comment on above: Performed By: #### P T, APTT #### [facility] [address] [place] [address], MCH (RBC) [Entitic mass] 29.7 pg Normal 26.0-34.0 [facility] Comment on above: Performed By: #### P T, APTT #### [facility] [address] [place] [address], MCHC (RBC) [Mass/Vol] 33.1 g/dL Normal 32.0-35.9 [facility] Comment on above: Performed By: #### P T, APTT #### [facility] [address] [place] [address], MCV (RBC) [Entitic vol] 90 fL Normal 80-100 [facility] Comment on above: Performed By: #### P T, APTT #### [facility] [address] [place] [address], Platelet mean volume (Bld) [Entitic vol] 8.5 fL Normal 7.5-11.2 [facility] Comment on above: Performed By: #### P T, APTT #### [facility] [address] [place] [address], Platelets (Bld) [#/Vol] 274 10*3/uL Normal 150-400 [facility] Comment on above: Performed By: #### P T, APTT #### [facility] [address] [place] [address], RBC (Bld) [#/Vol] 3.62 10*6/uL Low 4.00-5.20 [facility] Comment on above: Performed By: #### P T, APTT #### [facility] [address], [place], WBC (Bld) [#/Vol] 12.4 10*3/uL High 4.5-11.5 [facility] Comment on above: Performed By: #### P T, APTT #### [facility] [address], [place], COVID-19 Antigenon 1 COVID-19 Antigen Healthcare Worker?: N Braulio Reference Braulio Reference Negative SARS-CoV+SARS-CoV-2 (COVID-19) Ag [Presence] in Respiratory specimen by Rapid immunoassay Negative for SARS Antigen by ARIANNA COVID19 Blank Space Braulio Disclaimer Negative results, from patients with symptom Braulio Disclaimer onset beyond five days, should be treated as Braulio Disclaimer presumptive and confirmation with a molecular Braulio Disclaimer assay, if necessary, for patient management, Braulio Disclaimer may be performed. Negative results do not rule Braulio Disclaimer out COVID-19 and should not be used as the sole Braulio Disclaimer basis for treatment or patient management Braulio Disclaimer decisions, including infection control decisions. Braulio Disclaimer Negative results should be considered in the Braulio Disclaimer context of a patient's recent exposures, history Braulio Disclaimer and the presence of clinical signs and symptoms Braulio Disclaimer consistent with COVID-19. COVID19 Blank Space Braulio Disclaimer The Braulio SARS Antigen ARIANNA does not differentiate Braulio Disclaimer between SARS-CoV and SARS-CoV-2. COVID19 Blank Space Braulio Disclaimer This test was developed and its performance Braulio Disclaimer characteristic determined by [employer] and Braulio Disclaimer validated at [facility]. This Braulio Disclaimer test has not been FDA cleared or approved. This Braulio Disclaimer test has been authorized by FDA under an Emergency Use Braulio Disclaimer Authorization (EUA). This test has been validated Braulio Disclaimer in accordance with the FDA's Guidance Document (Policy Braulio Disclaimer for Diagnostics Testing in Laboratories Certified to Braulio Disclaimer Perform High Complexity Testing under CLIA prior to Braulio Disclaimer Emergency Use Authorization for Coronavirus Braulio Disclaimer iseas during the Public Health Emergency) Braulio Disclaimer issued on June 21, 2019. This test is only authorized Braulio Disclaimer for the duration of time the declaration that Braulio Disclaimer circumstances exist justifying the authorization of Braulio Disclaimer the emergency use of in vitro diagnostic tests for Braulio Disclaimer detection of SARS-CoV-2 virus and/or diagnosis of Braulio Disclaimer COVID-19 infection under section 564(b)(1) of the Braulio Disclaimer Act, 21 U.S.C. 360bbb-3(b)(1), unless the Braulio Disclaimer authorization is terminated or revoked sooner. PERFORMED BY: [place] [address] PATHOLOGIST FURNITURE REFINISHER JUNAID ROA M.D. [facility] Comment on above: Performed By: #### C OVID-19 BHARATHI RAMESYEG #### [address] Consultson 11-19-2020 Chemistry Department Chair Authentication Interface Message Text Attestation signed by Yudy Cardona MD at 11/25/2020 9:19 PM Teaching Physician Note: I reviewed the resident's documentation and discussed the patient with the resident on the date of this note. I agree with the resident's medical decision making as documented in the resident's note. Yudy Cardona MD [facility] DIVISION OF ACUTE CARE SURGERY EMERGENCY GENERAL SURGERY CONSULTATION, HISTORY AND PHYSICAL Reason for consultation: Abdominal pain Referring physician: Dr Lloyd (ED) HPI: This is a 55 year old female with PMH of asthma, hypothyroidism, HTN (on metoprolol) presenting as a transfer from OSH for abdominal pain. Patient reports she has LLQ pain. It was initially described as achy over the weekend slightly alleviated by motrin, but she noticed to have some blood per rectum yesterday which is intermittent and decreased with movement. Denies fevers. Endorses chills and heat flashes. Reports she had stopped eating his 12PM today secondary to hospital evaluation, however reports appetite. Previously experienced nausea. Patient reports a ventral hernia surgery with mesh in 2014, laparoscopic tubal ligation when she was 23 years old. Denies any previous colonoscopies or CRC screening. OSH labs- Cr 1.64, WBC 15.6, Hgb 12.6 PMH: HTN, hypothyroid, diverticulitis PSH: Ventral hernia repair with mesh 2014 MEDS: Levothyroxine 75 qd, metoprolol 50 every day, diazepam 5mg every day PRN, albuterol PRN Prescribed cipro/flagyl today for diverticulitis, has filled prescription but not yet taken any of the meds ALL: Denies alleriges FH: Denies FHx of colorectal cancer or IBD SH: Denies tobacco, ETOH, and drug use Review Of Systems: Skin: negative Eyes: negative review of symptoms Ears/Nose/Throat: negative Respiratory: +wheezing Cardiovascular: negative symptoms (No CP/Pressure/Tightness, palpitations, orthopnea, PND, SOB, TRAORE, edema, MARTÍNEZ or vision change) Gastrointestinal: +abdominal pain, nausea x 2 days intermittent, +rectal bleeding BRBPR small continuous volume Genitourinary: no urinary symptoms Neurologic: +weakness/dizziness, negative symptoms (no syncope, seizures, gait problems, numbness, burning pain, tremors, or memory loss) MSK: negative (no arthritic pain, no joint swelling, no muscle weakness) Psychiatric: negative (no sleep disturbance, anxiety, memory loss, disorientation, inattention, feelings of depression) Hematologic/Lymphatic/ Immunologic: +rectal bleeding, negative (no anemia, bruising) Endocrine: negative review of symptoms PHYSICAL EXAM: VITALS: Vitals: 11/19/20 2050 BP: 120/63 Pulse: 72 Resp: 20 Temp: 98.4 ???F (36.9 ???C) SpO2: 95% Physical Exam Constitutional: General: She is not in acute distress. Appearance: She is not toxic-appearing or diaphoretic. HENT: Head: Normocephalic and atraumatic. Right Ear: External ear normal. Left Ear: External ear normal. Nose: No rhinorrhea. Mouth/Throat: Mouth: Mucous membranes are moist. Pharynx: No posterior oropharyngeal erythema. Eyes: Extraocular Movements: Extraocular movements intact. Conjunctiva/sclera: Conjunctivae normal. Cardiovascular: Rate and Rhythm: Normal rate and regular rhythm. Pulses: Normal pulses. Heart sounds: Normal heart sounds. Pulmonary: Effort: No respiratory distress. Breath sounds: Wheezing present. Abdominal: General: There is no distension. Palpations: Abdomen is soft. There is no mass. Tenderness: There is no guarding. Hernia: No hernia is present. Comments: Mild-mod TTP LLQ, midline scar well healed around umbilicus Musculoskeletal: General: Normal range of motion. Cervical back: Normal range of motion and neck supple. Skin: General: Skin is warm and dry. Capillary Refill: Capillary refill takes less than 2 seconds. Neurological: General: No focal deficit present. Mental Status: She is alert and oriented to person, place, and time. Psychiatric: Mood and Affect: Mood normal. Behavior: Behavior normal. LABS: CBC/PT/INR None Basic Metabolic Panel None Arterial Blood Gases None ASSESSMENT/RECOMMENDAT IONS: Angelica Buckner is a 55 year old female who presents with concern for perforated diverticulitis and pelvic abscess. - admit to colorectal surgery, Dr. Cardona - abx: zosyn - NPO after midnight, IVF LR@75/hr - ok to drink until midnight tonight - coags ordered for AM - lovenox 40 mg - will plan for IR evaluation in AM Megan Marquez MD Discussed with colorectal attending Dr Cardona. Normal [facility] Dipstick and Microscopicon 0 11-19-2020 Appearance (U) Clear Normal Clear [facility] Comment on above: Order Comment: Name Collection Type:: Clean-Voided Midstream Performed By: #### A DDONUAPLUS #### [facility] [address] [id number] [place] Bacteria,Urine None Seen Normal None Seen [facility] Comment on above: Order Comment: Name Collection Type:: Clean-Voided Midstream Performed By: #### A DDONUAPLUS #### [facility] [address] [place] [address] [place] Bilirubin,Urine Negative Normal Negative [facility] Comment on above: Order Comment: Name Collection Type:: Clean-Voided Midstream Performed By: #### A DDONUAPLUS #### [facility] [address] [place] [address] [place] Color (U) Yellow Normal Yellow [facility] Comment on above: Order Comment: Name Collection Type:: Clean-Voided Midstream Performed By: #### A DDONUAPLUS #### [facility] [address] [place] [address] [place] Glucose Ql (U) Normal Normal Normal [facility] Comment on above: Order Comment: Name Collection Type:: Clean-Voided Midstream Performed By: #### A DDONUAPLUS #### [facility] [address] [place] [address] [place] Hyaline Casts,Urine 9-19 High 0-8 [facility] Comment on above: Order Comment: Name Collection Type:: Clean-Voided Midstream Result Comment: PERF ORMED BY: [place] [address] PATHOLOGIST FURNITURE REFINISHER JUNAID ROA M.D. Performed By: #### A DDONUAPLUS #### [address] Ketones Ql (U) Negative Normal Negative [facility] Comment on above: Order Comment: Name Collection Type:: Clean-Voided Midstream Performed By: #### A DDONUAPLUS #### [address] Leukocyte esterase Test strip Ql (U) Negative Normal Negative [facility] Comment on above: Order Comment: Name Collection Type:: Clean-Voided Midstream Performed By: #### A DDONUAPLUS #### [place] [address] [place] Nitrite,Urine Negative Normal Negative [facility] Comment on above: Order Comment: Name Collection Type:: Clean-Voided Midstream Performed By: #### A DDONUAPLUS #### [place] [address] [place] Occult Blood,Urine 1+ High Negative [facility] Comment on above: Order Comment: Name Collection Type:: Clean-Voided Midstream Performed By: #### A DDONUAPLUS #### [address] pH (U) 5.0 [pH] Normal 5.0-9.0 [facility] Comment on above: Order Comment: Name Collection Type:: Clean-Voided Midstream Performed By: #### A DDONUAPLUS #### [place] [address] [place] Protein (U) [Mass/Vol] 30 mg/dL High Negative [facility] Comment on above: Order Comment: Name Collection Type:: Clean-Voided Midstream Performed By: #### A DDONUAPLUS #### [place] [address] [place] RBC,Urine 3-4 Normal 0-4 [facility] Comment on above: Order Comment: Name Collection Type:: Clean-Voided Midstream Performed By: #### A DDONUAPLUS #### [address] Renal Epithelial Cells,Urine Rare Normal 0-1 [facility] Comment on above: Order Comment: Name Collection Type:: Clean-Voided Midstream Performed By: #### A DDONUAPLUS #### [address] Specificy [place],Urine > 1.050 High 1.001-1.030 [facility] Comment on above: Order Comment: Name Collection Type:: Clean-Voided Midstream Performed By: #### A DDONUAPLUS #### [address] Squamous Epithelial Cell,Urine 5-9 High 0-2 [facility] Comment on above: Order Comment: Name Collection Type:: Clean-Voided Midstream Performed By: #### A DDONUAPLUS #### [address] Urobilinogen,Urine Normal Normal Normal [facility] Comment on above: Order Comment: Name Collection Type:: Clean-Voided Midstream Performed By: #### A DDONUAPLUS #### [address] WBC,Urine 10-19 High 0-4 [facility] Comment on above: Order Comment: Name Collection Type:: Clean-Voided Midstream Performed By: #### A DDONUAPLUS #### [address] ED Provider Noteson 11-20-19 Chemistry Department Chair Authentication Interface Message Text EMERGENCY DEPARTMENT - VISIT NOTE -------- HISTORY OF PRESENT ILLNESS ---- No chief complaint on file. HIPAA: Verbal permission granted from patient to discuss case, including protected health information, in front of family / friends if anyone was in room at the time of the evaluation. Professional Engineer: none The history is provided by the Patient. Angelica Buckner is a 55 year old female presenting to the ED for abdominal pain. Patient notes 1 week of left lower quadrant abdominal pain. A it is associated with nausea vomiting and blood in her stool. It does not radiate. It is constant worse with movement. She was seen at outside facility were CT scan showed diverticulitis with perforation and abscess. She was sent to [facility] to be evaluated by acute Care surgery. She was given antibiotics at the outside facility. REVIEW OF SYSTEMS Review of Systems Constitutional: Negative for diaphoresis and fever. HENT: Negative for nosebleeds. Eyes: Negative for visual disturbance. Respiratory: Negative for cough and shortness of breath. Cardiovascular: Negative for chest pain and leg swelling. Gastrointestinal: Positive for abdominal pain, blood in stool, nausea and vomiting. Negative for diarrhea. Endocrine: Negative for polydipsia. Genitourinary: Negative for dysuria. Musculoskeletal: Negative for neck pain. Skin: Negative for color change. Allergic/Immunologic: Negative for immunocompromised state. Neurological: Negative for syncope and headaches. Hematological: Does not bruise/bleed easily. Psychiatric/Behavioral : Negative for agitation. All other systems reviewed and are negative. PAST HISTORY Pertinent Past History: Hx of htn Pertinent Family History: Famhx reviewed and negative for history pertinent to current complaint Pertinent Social History: Denies tobacco EtOH drugs PHYSICAL EXAM BP 120/63 Pulse 72 Temp 98.4 ???F (36.9 ???C) (Oral) Resp 20 SpO2 95% Exam: Constitutional Nursing triage notes reviewed, Vital signs reviewed, Alert, Awake and No acute distress HENT No facial abrasions or nasal swelling, normal phonation, MMM Eyes Pupils equal round and reactive to light, Extraocular muscles intact, Nonicteric and Non-injected, no conjunctiva pallor Neck Supple and No nuchal rigidity Lungs Clear to auscultation, No wheezing, No rales, No respiratory distress and No cyanosis Heart Regular rhythm, No murmurs, rubs, or gallops appreciated Abdomen Soft, Nondistended and ttp LLQ Back No midline bony tenderness to thoracic/lumbar/sacral spines Extremities Symmetric pulses palpated in all extremities, All extremities nontender without deformity, No edema, no calf tenderness Neuro Alert normally oriented and Normal speech Skin No rash or lesion, Warm and Dry Psych Normal affect, Good eye contact and Cooperative MEDICAL DECISION MAKING and ED COURSE Nursing triage and assessment notes reviewed and incorporated Evaluated by EM attending Reji Lloyd Interpretation of Results: See course Course: ED Course as of Nov 20 6 Jeannine Nov 20, 2020 0005 No prior Creatinine(!): 1.33 [SM] 0005 WBC(!): 12.4 [SM] 0005 Complete Blood Count(!): WBC 12.4(!) RBC 3.62(!) Hemoglobin 10.7(!) Hematocrit 32.4(!) MCV 90 MCH 29.7 MCHC 33.1 Platelet 274 RDW-CV% 13.4 MPV 8.5 [SM] 0005 Basic Metabolic Panel(!): Glucose 96 Sodium 139 Potassium 3.8 Carbon Dioxide 23 Chloride 105 BUN 19 Creatinine 1.33(!) Calcium 8.2(!) Anion Gap 15(!) Estimated GFR 45(!) [SM] 0005 Magnesium: Magnesium 2.1 [SM] 0005 Lactic Acid (With Repeat for ED): Lactate 1.1 [SM] 0005 Phosphorus: Phosphorus, Serum 4.1 [SM] ED Course User Index [SM] Kaz Bond DO Medical Decision Making: Summary Angelica Buckner is a 55 year old female with a hx of htn presenting to the ED for AP with known diverticulitis The patient appeared well on arrival. Vital signs wnl History as noted in HPI. Examination as noted above, Significant for LLQ ttp. Labs were obtained for preoperative clearance per surgery. Patient had a left shift leukocytosis all other labs were within normal limits or without acute emergent abnormality. Given the pt's presentation, hx, and exam ACS consulted. A/P: The presentation is most consistent with diverticulitis with complication. Pt received abx. ACS was consulted, repeat antibiotics were given, patient was admitted on the colorectal. The patient: - had the results of all tests and diagnosis explained to them - was informed that they would need to be admitted to further care - Pt agreeable and acknowledges the plan (more content not included)... Normal [facility] Hepatic Panelon 11-19-2020 Albumin [Mass/Vol] 2.8 g/dL Low 3.2-5.5 [facility] Comment on above: Performed By: #### P TT, BMP, LACTIC, PT, HEPATIC, LIPASE, SCAN CBC #### [facility] [address] Albumin/Globulin [Mass ratio] 0.7 {ratio} Normal [facility] Comment on above: Performed By: #### P TT, BMP, LACTIC, PT, HEPATIC, LIPASE, SCAN CBC #### [facility] [address] [place] [address] [place] ALP [Catalytic activity/Vol] 98 U/L High 32-92 [facility] Comment on above: Performed By: #### P TT, BMP, LACTIC, PT, HEPATIC, LIPASE, SCAN CBC #### [facility] [address] ALT [Catalytic activity/Vol] 38 U/L Normal 10-60 [facility] Comment on above: Performed By: #### P TT, BMP, LACTIC, PT, HEPATIC, LIPASE, SCAN CBC #### [facility] [address] AST [Catalytic activity/Vol] 18 U/L Normal 10-42 [facility] Comment on above: Performed By: #### P TT, BMP, LACTIC, PT, HEPATIC, LIPASE, SCAN CBC #### [address] Bilirubin [Mass/Vol] 0.8 mg/dL Normal 0.3-1.2 [facility] Comment on above: Performed By: #### P TT, BMP, LACTIC, PT, HEPATIC, LIPASE, SCAN CBC #### [address] Bilirubin,Indirect 0.6 mg/dL Normal [facility] Comment on above: Performed By: #### P TT, BMP, LACTIC, PT, HEPATIC, LIPASE, SCAN CBC #### [address] Bilirubin.indirect [Mass/Vol] 0.2 mg/dL Normal 0.0-0.4 [facility] Comment on above: Performed By: #### P TT, BMP, LACTIC, PT, HEPATIC, LIPASE, SCAN CBC #### [address] Globulin (S) [Mass/Vol] 3.8 g/dL Normal [facility] Comment on above: Performed By: #### P TT, BMP, LACTIC, PT, HEPATIC, LIPASE, SCAN CBC #### [address] Protein [Mass/Vol] 6.6 g/dL Normal 6.1-7.9 [facility] Comment on above: Performed By: #### P TT, BMP, LACTIC, PT, HEPATIC, LIPASE, SCAN CBC #### [address] LACTATE WITH REPEAT EDon CR LACT 1.1 mmol/L Normal 0.5-2.0 [facility] Comment on above: Performed By: #### L ACTREPEAT #### [facility] [address] [place] [address], Lactic Acidon 11-19-2020 Lactate [Moles/Vol] 0.9 mmol/L Normal 0.5-2.2 [facility] Comment on above: Result Comment: PERF ORMED BY: [place] [id number] PATHOLOGIST FURNITURE REFINISHER JUNAID ROA M.D. Performed By: #### P TT, BMP, LACTIC, PT, HEPATIC, LIPASE, SCAN CBC #### [facility] [address] [place] [id number] [facility] Lipaseon 11-19-2020 Lipase [Catalytic activity/Vol] 22.0 U/L Normal 22-51 [facility] Comment on above: Result Comment: PERF ORMED BY: [address] [address] PATHOLOGIST FURNITURE REFINISHER JUNAID ROA M.D. Performed By: #### P TT, BMP, LACTIC, PT, HEPATIC, LIPASE, SCAN CBC #### [facility] [address] [place] [address] [facility] MAGNESIUMon 11-19-2020 Magnesium [Mass/Vol] 2.1 mg/dL Normal 1.6-2.8 [facility] Comment on above: Result Comment: Hemo lysis present Performed By: #### P T, APTT #### [facility] [address] [place], [place], PHOSPHORUSon 11-19-2020 Phosphate [Mass/Vol] 4.1 mg/dL Normal 2.5-4.8 [facility] Comment on above: Performed By: #### P T, APTT #### [facility] [address] [place], [place], Partial Thromboplastin Timeo n 11-19-2020 aPTT Coag (Bld) [Time] 29.6 s Normal 25.1-36.5 [facility] Comment on above: Result Comment: PERF ORMED BY: [address] [id number] PATHOLOGIST FURNITURE REFINISHER JUNAID ROA M.D. Performed By: #### P TT, BMP, LACTIC, PT, HEPATIC, LIPASE, SCAN CBC #### [address] Prothrombin Time INRon 11-19 INR Coag (PPP) [Relative time] 1.3 {INR} Normal [facility] Comment on above: Result Comment: INR Therapeutic Range A) Pre- and Peroperative OAT started two weeks before surgery. NOT HIP SURGERY: 1.5 - 2.5 HIP SURGERY: 2 - 3 B) Primary and secondary prevention of venous THROMBOSIS: 2 - 3 C) Active venous thrombosis, pulmonary embolism and prevention of recurrent venous thrombosis: 2 - 3 D) Prevention of arterial thromboembolism including patients with mechanical heart valves: 3 - 4.5 Performed By: #### P TT, BMP, LACTIC, PT, HEPATIC, LIPASE, SCAN CBC #### [address] PT Coag (PPP) [Time] 14.7 s High 9.0-12.9 [facility] Comment on above: Performed By: #### P TT, BMP, LACTIC, PT, HEPATIC, LIPASE, SCAN CBC #### [address] Scan and CBCon 11-19-2020 Basophils (Bld) [#/Vol] 0.0 10*3/uL Normal 0.0-0.2 [facility] Comment on above: Performed By: #### P TT, BMP, LACTIC, PT, HEPATIC, LIPASE, SCAN CBC #### [address] Basophils/100 WBC (Bld) 0.3 % Normal . [facility] Comment on above: Performed By: #### P TT, BMP, LACTIC, PT, HEPATIC, LIPASE, SCAN CBC #### [address] Eosinophils (Bld) [#/Vol] 0.0 10*3/uL Normal 0.0-0.45 [facility] Comment on above: Performed By: #### P TT, BMP, LACTIC, PT, HEPATIC, LIPASE, SCAN CBC #### [place] [id number] [place] Eosinophils/100 WBC (Bld) 0.2 % Normal . [facility] Comment on above: Performed By: #### P TT, BMP, LACTIC, PT, HEPATIC, LIPASE, SCAN CBC #### [address] Erythrocyte distribution width (RBC) [Ratio] 13.3 % Normal 11.9-15.3 [facility] Comment on above: Performed By: #### P TT, BMP, LACTIC, PT, HEPATIC, LIPASE, SCAN CBC #### [address] Hematocrit (Bld) [Volume fraction] 36.7 % Normal 34.0-46.4 [facility] Comment on above: Performed By: #### P TT, BMP, LACTIC, PT, HEPATIC, LIPASE, SCAN CBC #### [address] Hemoglobin (Bld) [Mass/Vol] 12.6 g/dL Normal 11.8-15.4 [facility] Comment on above: Performed By: #### P TT, BMP, LACTIC, PT, HEPATIC, LIPASE, SCAN CBC #### [address] Lymphocytes (Bld) [#/Vol] 1.1 10*3/uL Normal 1.00-4.8 [facility] Comment on above: Performed By: #### P TT, BMP, LACTIC, PT, HEPATIC, LIPASE, SCAN CBC #### [address] Lymphocytes/100 WBC (Bld) 7.0 % Normal . [facility] Comment on above: Performed By: #### P TT, BMP, LACTIC, PT, HEPATIC, LIPASE, SCAN CBC #### [address] MCH (RBC) [Entitic mass] 30.6 pg Normal 24.7-34.3 [facility] Comment on above: Performed By: #### P TT, BMP, LACTIC, PT, HEPATIC, LIPASE, SCAN CBC #### [address] MCV (RBC) [Entitic vol] 89.2 fL Normal 80-100 [facility] Comment on above: Performed By: #### P TT, BMP, LACTIC, PT, HEPATIC, LIPASE, SCAN CBC #### [address] Mean Corpuscular HGB Conc 34.3 g/dL Normal 32.0-35.0 [facility] Comment on above: Performed By: #### P TT, BMP, LACTIC, PT, HEPATIC, LIPASE, SCAN CBC #### [address] Monocytes (Bld) [#/Vol] 1.6 10*3/uL High 0.0-0.8 [facility] Comment on above: Performed By: #### P TT, BMP, LACTIC, PT, HEPATIC, LIPASE, SCAN CBC #### [address] Monocytes/100 WBC (Bld) 10.6 % Normal . [facility] Comment on above: Performed By: #### P TT, BMP, LACTIC, PT, HEPATIC, LIPASE, SCAN CBC #### [address] Neutrophils (Bld) [#/Vol] 12.8 10*3/uL High 1.8-7.7 [facility] Comment on above: Performed By: #### P TT, BMP, LACTIC, PT, HEPATIC, LIPASE, SCAN CBC #### [address] Neutrophils/100 WBC (Bld) 81.9 % Normal . [facility] Comment on above: Performed By: #### P TT, BMP, LACTIC, PT, HEPATIC, LIPASE, SCAN CBC #### [address] Nucleated RBC/100 WBC (Bld) [Ratio] 0.1 % Normal 0-0.5 [facility] Comment on above: Performed By: #### P TT, BMP, LACTIC, PT, HEPATIC, LIPASE, SCAN CBC #### [address] Ovalocytes Slight Normal [facility] Comment on above: Performed By: #### P TT, BMP, LACTIC, PT, HEPATIC, LIPASE, SCAN CBC #### [address] Platelet Estimate Normal Normal Normal [facility] Comment on above: Performed By: #### P TT, BMP, LACTIC, PT, HEPATIC, LIPASE, SCAN CBC #### [address] Platelet mean volume (Bld) [Entitic vol] 8.1 fL Normal 6.3-10.7 [facility] Comment on above: Performed By: #### P TT, BMP, LACTIC, PT, HEPATIC, LIPASE, SCAN CBC #### [address] Platelet Morphology Normal Normal Normal [facility] Comment on above: Result Comment: PERF ORMED BY: [place] [address] PATHOLOGIST FURNITURE REFINISHER JUNAID ROA M.D. Performed By: #### P TT, BMP, LACTIC, PT, HEPATIC, LIPASE, SCAN CBC #### [address] Platelets (Bld) [#/Vol] 330 10*3/uL Normal 150-450 [facility] Comment on above: Performed By: #### P TT, BMP, LACTIC, PT, HEPATIC, LIPASE, SCAN CBC #### [address] Poikilocytosis Slight Normal [facility] Comment on above: Performed By: #### P TT, BMP, LACTIC, PT, HEPATIC, LIPASE, SCAN CBC #### [address] RBC (Bld) [#/Vol] 4.12 10*6/uL Normal 3.60-5.00 [facility] Comment on above: Performed By: #### P TT, BMP, LACTIC, PT, HEPATIC, LIPASE, SCAN CBC #### [facility] [address] WBC (Bld) [#/Vol] 15.6 10*3/uL High 4.5-11.0 [facility] Comment on above: Performed By: #### P TT, BMP, LACTIC, PT, HEPATIC, LIPASE, SCAN CBC #### [facility] [address] Braulio Ag Negativeon 11-20-19 Braulio Ag Negative Negative Normal Negative [facility] Comment on above: Result Comment: This is a duplicate Braulio SARS Antigen (ARIANNA) result to be used for statistical tracking purpose only. PERFORMED BY: [place] [address] PATHOLOGIST FURNITURE REFINISHER JUNAID ROA M.D. Performed By: #### C OVID-19 BRAULIO, SOFIANEG #### [address] Encounters Encounter Date Encounter Type Care Provider Facility Start: 02-18-2022 End: 02-19-2022 ambulatory PAMELA SANTACRUZ Facility:[facility] Start: 12-05-2021 End: 12-06-2021 ambulatory PAMELA SANTACRUZ Facility:[facility] Start: 10-14-2021 End: 10-15-[address] BISHNU VILLA Facility:[facility] Start: 04-14-2021 End: 04-14-2021 ambulatory UNKNOWN PROVIDER [facility] Start: 12-26-2020 End: 12-26-2020 ambulatory UNKNOWN PROVIDER [facility] Start: 12-09-2020 End: 12-14-2020 Evaluation and management of inpatient IP OCCUPATIONAL THERAPY SERVICE REQUEST Facility:[facility] Start: 12-03-2020 ambulatory UNKNOWN PROVIDER Facili ty:[facility] Start: 12-03-2020 End: 12-03-2020 ambulatory UNKNOWN PROVIDER Facility:[facility] Start: 12-03-2020 End: 12-29-2020 ambulatory UNKNOWN PROVIDER Facility:[facility] Start: 11-20-2020 ambulatory ANISA Bryan ility:[facility] Start: 11-20-2020 End: 11-21-2020 Evaluation and management of inpatient YUDY CARDONA Facility:[facility] Start: 11-19-2020 ambulatory UNKNOWN PROVIDER Facili ty:[facility] Payers Date Payer Category Payer Unknown [id number] 2.16. [id number] 1965 Unknown [id number] 2.16. [id number] 1964 Unknown [id number] 2.16. [id number] 1964 Unknown [id number] 2.16. [id number] 1964 Unknown [id number] 2.16. [id number] 1964 Unknown [id number] 2.16. [id number] 1964 Unknown [id number] 2.16. [id number] 1964 Unknown [id number] 2.16. [id number] 1964 Unknown [id number] 2.16. [id number] 1964 Unknown [id number] 2.16. [id number] 1964 Unknown [id number] 2.16.84 [id number] 1964 Unknown [id number] 2.16.84 [id number] 1964 Unknown [id number] 2.16.84 [id number] 1960 [facility] [id number] Clinical Notes 11-20-2020 to 12-26-2020 Note Date & Type Note Facility 12-26-2020 Note It is ok to slowly a dd foods back to your diet. Slowly increase your activity but no heavy lifting for an additional 2 weeks. Please contact my administrative sales assistant Frances at if you have any questions or concerns. [facility] 12-14-2020 Note DISCHARGE SUMMARY [address] [id number] Angelica Buckner Date of : 1965 55 year old female Attending Jhonatan Gonzalez MD Date of Admission 12/09/2020 Date of Discharge 12/14/20 [Principal Hospital Problem (Final Diagnosis)] Abscess of sigmoid colon due to diverticulitis [Secondary Hospital Problems] Diverticulitis of large intestine with abscess without bleeding Discharge Procedure Orders cysto ureteral stenting No future appointments. Condition at Discharge Improved Activity No heavy lifting and no strenuous activity Diet: GI soft diet Disposition Home Functional Status Ambulatory Reason for Hospitalization Diagnosis: Diverticulitis of large intestine with abscess without bleeding Procedure(s): 1) Laparoscopic converted to open sigmoid colectomy 2) Laparoscopic splenic flexure mobilization 3) Laparoscopic lysis of adhesions 45 minutes 4) Rigid proctoscopy 5) Cystoscopy and bilateral ureteral stent placement (Dr. Wall) Significant Findings Short segment sigmoid inflammation and thickening with drain in pericolic chronic abscess; stapled end to end colorectal anastomosis at 17 cm from the verge; leak test negative Colon tissue pathology pending Hospital Course ??? Underwent laparoscopic converted to open sigmoidectomy, CASIMIRO, and cystoscopy with b/l ureteral stent placement (Dr. Wall) with Dr. Gonzalez on 12/09/2020. ??? Tolerated procedure well w/ no complications; please see separately dictated operative note for details. ??? Extubated in the OR without incident and recovered briefly in the PACU before being transferred to a [facility] ??? Patient had a KAMI drain placed during surgery which was removed on 12/14/20 prior to discharge. ??? Patient's hanson was removed on POD#3 and patient voided on own without difficulty. ??? Diet was slowly advanced as tolerated to GI soft and pain control was transitioned to PO only medication prior to discharge. ??? Pt was discharged home in stable condition on 12/14/20 with instructions to follow-up as an outpatient. ??? At time of discharge, pt was afebrile, AVSS, and pain was well-controlled. She was tolerating a diet, voiding without issue, and ambulating independently. All incisions were clean, dry and intact. The green surgery team provided the patient and/or family/surrogate with the following information: Explanation of the primary diagnosis, and secondary diagnoses where applicable, including test results, Discussion of post-hospital day-to-day care needs and Follow-up plans, and warning signs that should prompt more urgent follow-up Note created with assistance from Laina Bahena PA-C. Angelique Kimbrough PA-C 12/14/20 [facility] 12-13-2020 Note PHYSICAL THERAPY PRO OMKAR SUMMARY Patient seen from 1:58 to 2:10 on 8C unit for a 12 minute treatment. SUBJECTIVE: Patient Subjective/Goals: I've been walking a lot. OBJECTIVE: Appearance: Pt is sitting at the EOB Behavior: agreeable, alert, pleasant Pain: Site/Location: abdomen; Pain Scale: 3/10 Pain Relief Interventions Implemented: RN aware and reports patient received medication according to time schedule Mobility NA Dep Max Mod Min CG CS DS CT I Comment Sit to/from stand x Walking on level surface x 150 feet x 2 with no device with CS Gait Analysis: good walking stride,No LOB Stairs x Stand to sit x Functional Endurance: WFL Sitting Balance: Static:good Patient/Family Education: Instructed Patient in roles of therapy. Patient up in chair with call light in reach. ??? DME: With Patients permission ordered no equipment via [employer]. If any questions contact [facility] DME Provider at [phone]. 6 Clicks Basic Mobility PT 12/13/2020 Difficulty turning over in bed 4 Difficulty sitting down and standing up from a chair with arms 4 Difficulty moving from lying on back to sitting on the side of the bed 4 Help from another person moving to and from bed to a chair 3 Help from another person to walk in hospital room 3 Help from another person climbing 3-5 steps with a railing 3 PT 6 Clicks Score 21 6 Click Score Guidelines: 1 - Total = Requires total assistance, or cannot do at all. 2 - A lot = Requires a lot of help (maximun to moderate assistance) Can use assistive devices. 3 - A little = Requires a little help (supervision, minimal assistance) Can use assistive devices. 4 - None = Does not require any help and does the activity independently. Can use assistive devices. ??? ASSESSMENT: Patient is functionally appropriate for discharge home once medically cleared. Will continue to follow patient while in hospital as appropriate. Revised Goals: (to be achieved by discharge from acute care): Patient will achieve acceptable level of pain control to allow participation in therapy. Patient will increase bed mobility to modified independent Patient will perform sit to/from stand transfer bed to/from chair with none with modified independent Patient will ambulate 150' with none with modified independent Patient will increase ROM/Strength/Endurance/Balance to allow for above goals. Patient/Family independent with exercise program/precautions. 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 Patient seen from 9:17AM to 9:40AM on 8C unit for 23 minutes. Co-evaluation + co-treatment with professional assistance of OT secondary to safety with mobility concerns. Admit date/time: 12/09/2020 9:09 AM Reason for Admit: 55 year old female who presented for scheduled surgery. Diagnosis: Diverticulitis of large intestine with abscess without bleeding Precautions: Moderate risk falls, full code, GI soft diet, Activity: Up in chair within 2-4 hours of surgery, ambulate as tolerated Procedures this admit: 12/09/2020 1) Laparoscopic converted to open sigmoid colectomy 2) Laparoscopic splenic flexure mobilization 3) Laparoscopic lysis of adhesions 45 minutes 4) Rigid proctoscopy 5) Cystoscopy and bilateral ureteral stent placement (Dr. Wall) Past Medical and Surgical History: PMH: Past Medical History: Diagnosis Date * Diverticulitis Drain placed * HTN (hypertension) * Hypothyroidism PSH: Past Surgical History: Procedure Laterality Date * HERNIA REPAIR 2014 triple surgery Identification was verified by patient verbalizing his/her name and date of . and patient's id band and date of . Risks and Benefits of physical therapy: Patient informed of risks and benefits of treatment SUBJECTIVE: Patient Subjective: That is my daughter Aliza. 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 Ramp to enter. 0 steps to bedroom/bathroom. Assistance available: PRN (works) Equipment available: shower seat, raised toilet OBJECTIVE: Appearance: Supine in bed with HOB slightly raised upon arrival, hospital gown, Obese, PIV, KAMI drain, hanson, A-line Behavior: Awake, pleasant and cooperative, agreeable Oriented x 3 Follows multiple step commands consistently and with cues Pain: Site/Location: abdomen; Pain Scale: 1-2/10 Pain Relief Interventions Implemented: Positioning, Rest and RN aware and reports patient received medication according to time schedule Passive ROM: WFL bilateral LEs Strength/Active ROM: WFL bilateral LEs Mobility: Rolling to left: distant supervision for safety AND balance for rolling onto side; cueing for log-rolling technique with good carryover Sidelying to sit: distant supervision for safety AND balance for bed mobility; cueing for log-rolling technique with good carryover Sitting balance: Good unsupported Sit to stand: close supervision for safety AND balance, initially used rolling walker, however, patient deemed to be more steady without rolling walker, cueing for proper hand placement on transferring surface Transfers: close supervision for safety AND balance, cueing for proper hand placement on transferring surface Ambulation/Gait: 50' x 3 with rolling walker initially AND then progression to no device, close supervision for safety AND balance, slow arslan, equal step height AND length bilaterally, decreased bilateral arm swing Endurance: WFL Patient/Family Education: Instructed Patient in roles, goals, treatment plan: demonstrated good verbal understanding. Patient instructed in log-rolling technique, safe transfers AND mobility, discharge planning, energy conservation techniques. Patient up in chair with call light in reach. ???Moderate falls risk per nursing assessment. DME: With Patients permission ordered no equipment via [employer] Order. If any questions contact [facility] DME Provider at [phone]. 7 Clicks Basic Mobility PT 12/10/2020 Difficulty turning over in bed 4 Difficulty sitting down and standing up from a chair with arms 3 Difficulty moving from lying on back to sitting on the side of the bed 3 Help from another person moving to and from bed to a chair 3 Help from another person to walk in hospital room 3 Help from another person climbing 3-5 steps with a railing 3 PT 6 Clicks Score 19 6 Click Score Guidelines: 1 - Total = Requires total assistance, or cannot do at all. 2 - A lot = Requires a lot of help (maximun to moderate assistance) Can use assistive devices. 3 - A little = Requires a little help (supervision, minimal assistance) Can use assistive devices. 4 - None = Does not require any help and does the activity independently. Can use assistive devices. ??? ASSESSMENT: Angelica Buckner is a 55 year old yo female who is currently hospitalized secondary to Diverticulitis of large intestine with abscess without bleeding. Patient is currently functioning near reported baseline of independent without assistive device, requiring supervision assistance for functional mobility tasks without assistive device this date. (more content not included)... [facility] 12-10-2020 Note OCCUPATIONAL THERAPY INITIAL EVALUATION Referral received. History noted. Patient seen from 1916 to 939 on 8C unit, Room 872-1 for minutes. 12 minutes eval, 11 minutes tx Service: Surgery Admit Date: 12/09/2020 OT Consult: 12/09/2020 Reason for Admit: Scheduled Surgery Diagnosis: Diverticulitis of large intestine with abscess without bleeding Procedures this admit: Procedures: 12/09/2020 1) Laparoscopic converted to open sigmoid colectomy 2) Laparoscopic splenic flexure mobilization 3) Laparoscopic lysis of adhesions 45 minutes 4) Rigid proctoscopy 5) Cystoscopy and bilateral ureteral stent placement (Dr. Wall) Precautions/Activity Order: Moderate risk falls, full code, GI soft diet, Activity: Up in chair within 2-4 hours of surgery 55 year old female Birthdate: 1965 Past Medical and Surgical History: PMH: Past Medical History: Diagnosis Date * Diverticulitis Drain placed * HTN (hypertension) * Hypothyroidism PSH: Past Surgical History: Procedure Laterality Date * HERNIA REPAIR 2014 triple surgery SUBJECTIVE: Patient Subjective: Let's go around again. Patient enjoyed walking in [place]. 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 Independent Driving Independent Ambulation without assistive device Independent with Instrumental Activities of Daily Living Assistance Available at Home: Lives with who works time study analyst. Patient lives in a 1 story home with a ramp to enter. Full Bathroom on 1st level, Bedroom on 1st level. Laundry: 1st level down 1 step. Equipment available at home: Shower seat, high toilet, OBJECTIVE: Patient Identification: patient verbalizing his/her name and date of . and patient's id band and date of . Risks and benefits of occupational therapy: Patient informed of risks and benefits of treatment Appearance: hospital gown, Obese, PIV, KAMI drain, hanson, A-line Alertness: WFL Affect: WNL Cooperation/Behavior: Appropriate dialogue with therapist and Pleasant and cooperative Communication: WFL Pain: Pain ratin/10, Location: abdomen Pain Relief Interventions Implemented: Rest Self Care: Assistance Level NA Dep Max Mod Min CG CS DS CT I Set-Up Comment Feeding x Grooming/Hygiene x Bathing:UB x Bathing:LB x Dressing:UB x Dressing: LB x Toileting x (+) hanson Transfers/Bed Mobility: Assistance Level NA Dep Max Mod Min CG CS DS CT I Set-Up Comment Toilet Transfers x Bed Transfers x Bed Mobility x Endurance for Self Care: Good Static Sitting Balance: WFL Dynamic Sitting Balance: WFL UE Motor: Right Left Strength AROM PROM PROM AROM Strength WFL WFL WFL Shoulder WFL WFL WFL WFL WFL WFL Elbow WFL WFL WFL WFL WFL WFL Wrist WFL WFL WFL WFL WFL WFL Digits WFL WFL WFL Comments: none Vision/Perception: WFL Cognition: Orientation: Oriented to person, place and date Follows Commands: WFL Attention: WNL Memory: WFL Problem Solving: WFL Safety/Judgement: WFL, performs functional transfer safely without cues and performs ADL safely without cues Sequencing: WFL Other Specialized Tests: None Patient/Family Education: ??? Instructed patient in roles of therapy ??? ADL retraining ??? Transfer training Patient up in chair with call light in reach. DME: With Patients permission ordered no equipment via [employer] Order. If any questions contact [facility] DME Provider at [phone]. Progressive Mobility Level: 4 6 Clicks Daily Activity OT 12/10/2020 Help from another person Eating meals 4 Help from another person taking care of personal grooming 4 Help from another person bathing 4 Help from another person putting on and taking off regular upper body clothing 4 Help from another person putting on and taking off regular lower body clothing 4 Help from another person toileting 4 OT 6 Clicks Score 24 6 Click Score Guidelines: 1 - Unable = Total/Dependent Assist 2 - A lot = Max/Moderate Assist 3 - A little = Minimum/Contact Guard Assist/Supervision 4 - Non = Modified [place]/Independent ASSESSMENT: Patient is functionally appropriate for discharge home once medically cleared. No further Occupational Therapy Services reccommended at this time. PLAN: Angelica Buckner is discharged from acute care OT services. Able to discuss the evaluation findings and treatment plan with the patient/family. The patient/family did participate in the development of plan and goals. Maria Isabel Daly, OTR/L NA = Not Assessed, I = Independent, CT = Modified Independent, Sup = Supervised, Set up = Physical Assistance for Set-up Only, Min = Minimal Assistance, Mod = Moderate Assistance, Max = Max assistance; Dep = Dependent; AROM = Active Range of Motion;PROM=Passive Range of Motion; MMT = Manual Muscle Test; UB = Upper Body; LB = Lower Body [facility] 12-09-2020 Note Surgical Attestation : I have reviewed the patient's History and Physical Examination. I have personally seen and evaluated the patient, repeating reese portions. There is no significant interval change. Surgery is still indicated. Yes Consent reviewed and signed by patient/family: Yes Operative site verified and marked: NA Jhonatan Gonzalez MD [facility] 12-03-2020 Note PT EDUCATION ERAS Protocol Instructions for Surgery scheduled 12/09/20 Introduced myself to pt as Clinical Coordinator to Provided pre-op information and what to expect during hospital admission. Reviewed:Same Day Admit Post-op activity/ OOB and ambulation POD #0 SCD Post-op pain control- Post-op diet Post-op Inspirometer usage Post-op Lovenox instructions, Pre-op and Post-op nutrition ENSURE DRINK dispensed 5 day supply and instructions how / when to start drinking. Provided Boost Instructions.begin drinks 12/04/20 Received instructions: For bowel prep as follows and instructions on the use of pre-surgical cleansing wipes. All questions and concerns answered. Pt verbalized understanding. Provided a copy of A Guide to Your Bowel Surgery booklet. Instructed to review and bring to the Hospital on your scheduled surgery day. Provided written instructions of the following and reviewed verbally Instructions for Mechanical Bowel Prep with Golytely and Oral antibiotics given in witting and discussed COMMENTS AND CONCERNS: Pre-surgical evaluation 3 pm today [phone] Marylin Starks BSN,RN,CCRN,CMSRN [phone] General Surgery Clinical Coordinator to: Yudy Cardona MD, MS, FACS, FASCRS Colorectal Surgery Lisa Israel MD Colorectal AND General Surgery [facility] 11-21-2020 Note DISCHARGE SUMMARY [place] [phone] Angelica Buckner Date of : 1965 55 year old female Attending Yudy Cardona MD Date of Admission 11/19/2020 Date of Discharge 11/21/2020 [Principal Hospital Problem (Final Diagnosis)] Abscess of sigmoid colon due to diverticulitis No discharge procedures on file. Future Appointments Date Time Provider Department Center 12/03/2020 1:00 PM Yudy Cardona MD [facility] GEN [facility] Health Condition at Discharge Improved Activity No heavy lifting and no strenuous activity Diet Other (see comments) (GI soft) Disposition Home Functional Status Ambulatory Reason for Hospitalization Diverticulitis with Abscess Significant Findings ??? CT scan from OSH showed diverticulitis with perforation and abscess. ??? Successful pelvic abscess drainage with placement of a 10F pigtail drainage catheter per IR, 30mL of purulent fluid aspirated Hospital Course ??? Presented to ED on 11/19/20 from OSH with abdominal pain, CY showing diverticulitis with perforation and abscess. Pt was admitted to [facility], made NPO, started on IV Zosyn, and given DVT prophylaxis. ??? IR successfully placed drain on 11/20/2020, aspirating 30mL of purulent fluid. ??? Tolerated procedure well w/ no complications; please see separately dictated note for details. ??? Diet was slowly advanced as tolerated and pain control was transitioned to PO. ??? Pt received instructions from nursing on how to care for drain at-home. ??? Pt was discharged home in stable condition on 11/21/20 with instructions to follow-up as an outpatient on 12/03/2020. ??? At time of discharge, pt was afebrile, AVSS, and pain was well-controlled. She was tolerating a GI soft diet, voiding without issue, and ambulating independently. The green surgery team provided the patient and/or family/surrogate with the following information: Explanation of the primary diagnosis, and secondary diagnoses where applicable, including test results, Discussion of any new medications and treatments, including expected benefits and potential major side effects and Discussion of post-hospital day-to-day care needs Note written with assistance from Angelique Kimbrough PA-C, reviewed and addended by Anisa Matamoros PA-C [facility] 11-20-2020 Note EXAMINATION: CT ABSC ESS DRAINAGE (SUMAN) CLINICAL HISTORY: Rad Procedure required: = IR drain for diverticulitis fluid collection,IR drain for diverticuilitis fluid collection ASSOCIATED DIAGNOSIS: TECHNOLOGISTS NOTE: Moderate sedation intraservice start time 1704 end time 1725. 1 mg Versed 75 mcg Fentanyl COMPARISON: Outside hospital CT November 19, 2020 INTRA-PROCEDURE MEDS: Versed 1 mg Fentanyl 75 mcg INFORMED CONSENT: Written informed consent was obtained. The procedure, risks, benefits, and alternatives were discussed. All questions were answered. TIMEOUT: Physician led timeout was conducted documenting correct patient, procedure, site, fire risk, antibiotics and allergies. COMPLICATIONS: None ESTIMATED BLOOD LOSS: Less than 10 mL TECHNIQUE: After the risks, benefits, and alternatives were explained to the patient, informed consent was obtained and a timeout was performed. The patient was positioned supine on the CT table for imaging guidance. Axial CT images were obtained through the area of interest and the patient's skin was marked. The patient's skin was then prepped and draped in the usual sterile fashion. Under CT guidance, a 5 German Igenicaeh catheter was advanced into the pelvic collection via an anterior approach. A 0.035 Amplatz wire was advanced through the catheter, with subsequent removal of the catheter and serial dilatations over the wire. A 10 German drainage catheter was then advanced over the wire into the fluid collection. Approximately 30 cc of purulent fluid was aspirated. The drainage catheter was then secured to the skin. The site was dressed in the usual aseptic fashion. The patient tolerated the procedure well without immediate complication. FINDINGS: Initial images identify the fluid collection within the pelvis. . Images made during the procedure demonstrate guide needle position within the collection. Post procedure images fail to show complication. IMPRESSION: Technically successful placement of a 10 German pigtail catheter into the pelvic abscess. MACRO: None [facility] 11-20-2020 Note POST- PROCEDURE NOTE Pre-procedure Diagnosis: Pelvic abscess Post-procedure Diagnosis: same Proceduralist: Drs. Coon and Lukas A TIME OUT was performed prior to the procedure using active communication to verify correct patient, procedure, and site: Yes Procedure Note: Successful pelvic abscess drainage with placement of a 10F pigtail drainage catheter. Full report to follow in PACS/EPIC Imaging Complications: none Medications: Totals unavailable because the procedure time range is not set Specimens: 30 mL of purulent fluid. Estimated Blood Loss: less than 5 cc Post Procedure Pain Ratin/10 Dr. Gaytan was present for the critical portion of the procedure Eitan Coon DO Radiology [facility] 11-20-2020 Note MODIFIED HISTORY AND PHYSICAL: Procedure:CT guided pelvic abscess drainage Indication: Abscess No past medical history on file. Sleep Apnea: no Excessive Obesity: yes Hepatic Disease: no Renal Disease: no No past surgical history on file. Substance Abuse History: Social History Tobacco Use * Smoking status: Not on file Substance Use Topics * Alcohol use: Not on file * Drug use: Not on file History Drug Use Not on file Current Facility-Administered Medications Medication Dose Route Frequency Last Rate Last Admin * piperacillin-tazobactam in D5W (ZOSYN) 3,375 mg in dextrose 50 mL ivpb 3.375 g Intravenous Q6H Antibiotic * HYDROmorphone (DILAUDID) 0.2 MG/ML injection 0.2 mg 0.2 mg Intravenous Push Q3H PRN 0.2 mg at 11/20/20 0941 * metoprolol (LOPRESSOR) 5 mg in dextrose 5 % 50 mL ivpb 5 mg Intravenous Every 6 hours * albuterol (PROVENTIL HFA) 108 (90 Base) MCG/ACT HFA inhaler 2 Puff Inhalation Q6H PRN * levothyroxine (SYNTHROID) 75 MCG tablet 75 mcg Oral Before Breakfast 75 mcg at 11/20/20 0534 * lactated ringers iv infusion Intravenous Continuous 75 mL/hr at 11/20/20 1328 New Bag at 11/20/20 1328 * enoxaparin (LOVENOX) 40 mg/0.4 mL injection 40 mg 40 mg Subcutaneous Daily 40 mg at 11/20/20 0908 * acetaminophen (TYLENOL) 325 mg tablet 650 mg Oral q6h 650 mg at 11/20/20 0908 Allergies: Patient has no known allergies. PHYSICAL EXAM: Vital Signs: Blood pressure 135/55, pulse 66, temperature 98.5 ???F (36.9 ???C), temperature source Oral, resp. rate 18, height 5' 4 (1.626 m), weight 233 lb 11 oz (106 kg), SpO2 98 %. Cardiovascular: Regular rate and rhythm Respiratory: Clear to auscultation bilaterally Procedure Body System: skin c/d/i Recent Labs: Result for specified components in the past 45 days Component Date/Time Result Units Hemoglobin 11/20/2020 6:28 AM 10.3 g/dL Hematocrit 11/20/2020 6:28 AM 30.0 % Platelet 11/20/2020 6:28 AM 244 K/uL aPTT 11/20/2020 6:28 AM 28 sec Protime 11/20/2020 6:28 AM 16.8 sec INR 11/20/2020 6:28 AM 1.49 FXAUN --- not found ANTIFXALMWHE --- not found Creatinine 11/20/2020 6:28 AM 1.29 mg/dL CONSCIOUS SEDATION ASSESSMENT: Plan for Sedation: Moderate Planned Medications: VERSED (midazolam) and fentanyl Other Agents: none ASA Classification: Class II: Individual with one system well controlled disease. Disease does not affect daily living. Mallampati Airway Assessment: Class II Faucial pillars, soft palate visible History of adverse reactions involving sedation/anesthesia: No patient or family history of adverse reaction PRE-PROCEDURE VERIFICATION Site of Procedure: not applicable Site Marked pre-procedure: Yes Pre-Procedure Pain Ratin/10 Advanced Directives (Living will, health care power of document review attorney): none Code Status For This Procedure: Full Code Eitan Coon DO Radiology [facility] 11-20-2020 Note 11/20/20 1300 Assessment and Discharge Planning Evaluation READMISSION LESS THAN 30 DAYS No READMISSION RISK SCORE IS Low Risk INTERVIEWED Patient COGNITIVE STATUS Oriented to person, place, time and location LIVING SITUATION Home - Own;Family PCP VERIFIED No (Patient has not PCP) ADMISSION INSURANCE Private Insurance (comment) HOME HEALTH CARE PRIOR TO ADMISSION No TENTATIVE DISCHARGE PLAN Home - Own READMISSION RISK SCORE SHOULD BE Remain Unchanged REASON READMISSION SCORE NEEDS ADJUSTED N/A Discharge Plan and Interventions DISCHARGE PLAN Home - Own PATIENT GOALS RELATED TO DISCHARGE Return home PATTY HOW WILL PATIENT MEET THEIR GOALS Care Coordination PATIENT TREATMENT PREFERENCES Participate in treatment plan Primary Social Problem/Concern Adjustment to injury/illness Social Interventions Assessment Only Social Outcomes Patient maintained in community CASE MANAGEMENT Met with patient and daughter at bedside to introduce self and explain role as CM. Patient lives with and daughter in single family home. Patient completely independent prior to admission. Patient stated she has severe anxiety and wants to discharge to home PATTY. Explained to patient and daughter that she may be in the hospital for another 1 or 2. Patient verbalized understanding stating the doctor told her the same thing. CM to follow for any discharge needs. Yamilet Connolly RNconvict guard [phone] (Phone) Hours 7:30 am to 4pm [facility] 11-20-2020 Note PHYSICAL THERAPY ACU TE EVALUATION Referral received, chart reviewed. Patient seen from 10:42 to 10:56 on 7B unit for 14 minutes. Co-eval with OT for safe pt handling and progression of mobility. Admit date/time: 11/19/2020 8:43 PM Reason for Admit: 55 y.o F who presented to OSH with reports of L lower quadrant pain x1 week. Diagnosis: Diverticulitis with perforation and pelvic abscess Precautions: NPO Full Code Activity as tolerated Procedures this admit: Consult in for IR 11/20/20 for drainage of pelvic abscess Past Medical and Surgical History: PMH: asthma, hypothyroidism, HTN (on metoprolol) PSH: Ventral hernia surgery with mesh in 2015, laparoscopic tubal ligation when she was 23 years old Identification was verified by patient verbalizing his/her name and date of . 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 Works and drives. Home: [place] style home 0 steps to enter 0 steps to bedroom/bathroom Assistance available: Lives with who works, father lives nearby Equipment available: Pt reports a variety of equipment including shower chair OBJECTIVE: Appearance: Pt supine in bed, L UE IV infusing and daughter Aliza present. Behavior: Awake, pleasant, cooperative Oriented x 4 Follows 2 step commands consistently Pain: Site/Location: abdomen; Pain Scale: 5/10 Pain Relief Interventions Implemented: RN aware and reports patient received medication according to time schedule Passive ROM: Not formally tested however observed WFL for basic level of mobility Strength/Active ROM: Not formally tested however observed WFL for basic level of mobility Mobility: Supine to long sit: Mod I with HOB elevated Long sit to short sit: Mod I with HOB elevated Sitting balance: Good, Mod I at EOB, no UE support Sit to stand: Independent, no device, from bed Transfers: Independent, no device Ambulation/Gait: 150'x1, no device, DS/Mod I. PT managing IV pole, pt demos fluid step through gait with mild lateral trunk sway, no LOB. Endurance: WFL, no dizziness, fatigue or SOB reported with functional mobility Patient/Family Education: Instructed Patient and other family member in roles of therapy. Patient up in chair with call light in reach. Educated on use of call berry with nursing before getting up for optimal safety. Education on performing AP and LAQ for anti-embolics throughout day and sitting up in chair at least 1 hr. DME: With Patients permission ordered no equipment via [employer] Order. If any questions contact [facility] DME Provider at [phone]. 6 Clicks Basic Mobility PT 11/20/2020 Difficulty turning over in bed 4 Difficulty sitting down and standing up from a chair with arms 4 Difficulty moving from lying on back to sitting on the side of the bed 4 Help from another person moving to and from bed to a chair 4 Help from another person to walk in hospital room 4 Help from another person climbing 3-5 steps with a railing 4 PT 6 Clicks Score 24 6 Click Score Guidelines: 1 - Total = Requires total assistance, or cannot do at all. 2 - A lot = Requires a lot of help (maximun to moderate assistance) Can use assistive devices. 3 - A little = Requires a little help (supervision, minimal assistance) Can use assistive devices. 4 - None = Does not require any help and does the activity independently. Can use assistive devices. ??? ASSESSMENT: Angelica Buckner is a 55 year old yo female with diagnosis as stated above. Pt is functioning at or near baseline level of function. Pt encouraged to ambulate around unit and clear with RN before getting up. Patient is functionally appropriate for discharge home once medically cleared. No further Physical Therapy services recommended at this time. The evaluation findings and treatment plan were discussed with the patient/family. The patient/family indicated understanding and agreement with the plan. [place] Hobbs, PT, DPT NA = Not Assessed, I = Independent, CT = Modified Independent, Sup = Supervised, Set up = Physical Assistance for Set-up Only, Min = Minimal Assistance, Mod = Moderate Assistance, Max = Max assistance; Dep = Dependent; AROM = Active Range of Motion; PROM = Passive Range of Motion; MMT = Manual Muscle Test; LE = Lower Extremity [facility]20-2020 Note OCCUPATIONAL THERAPY INITIAL EVALUATION Patient seen from 1040 to 1100 on 7B unit for 20 minutes. Reason for Admit: 55 yo admit for left lower quadrant abdominal pain Diagnosis: Diverticulitis with perforation and pelvic abscess Scheduled for IR drain of pelvic abscess on 11/20/20 Precautions/Activity Order: NPO; act as tolerated Past Medical and Surgical History: PMH: No past medical history on file. asthma, hypothyroidism, HTN (on metoprolol) SUBJECTIVE: Patient Subjective: I got up and walked with my IV pole to the bathroom Patient Identified Goal(s): to go home Home Living Situation Prior Functional Status: Independent Living Independent Driving Independent Working Assistance Available at Home: lives with Patient lives in a 1 story home 0 stairs to enter. Full Bathroom on 1 level Bedroom on 1 level. Equipment available at home: Shower chair OBJECTIVE: Patient Identification: patient verbalizing his/her name and date of . Risks and benefits of occupational therapy: Patient informed of risks and benefits of treatment Appearance: IV Alertness: WFL Affect: WNL Cooperation/Behavior: Appropriate dialogue with therapist and Pleasant and cooperative Communication: WFL Pain: Pain ratin/10, Location: left lower abdomen Pain Relief Interventions Implemented: Positioning Self Care: Assistance Level Dep Max Mod Min CG CS DS CT I Set-Up Comment Feeding x Anticipated; pt currently NPO Grooming/Hygiene x Bathing:UB x Bathing:LB x Dressing:UB x Dressing: LB x Toileting x Transfers/Bed Mobility: Assistance Level Dep Max Mod Min CG CS DS CT I Set-Up Comment Toilet Transfers x Bed Transfers x Bed Mobility x Endurance for Self Care: Good Static Sitting Balance: Good Dynamic Sitting Balance: Good UE Motor: BUE AROM WFL with good strength Vision/Perception: WFL Cognition: Orientation: Oriented to person, place and time Follows Commands: WFL Attention: WNL Patient/Family Education: Instructed patient in roles of therapy Patient up in chair with call light in reach. ??? DME: With Patients permission ordered no equipment via [employer] Order. [facility] any [facility] at [phone]. ??? 6 Clicks Daily Activity OT 11/20/2020 Help from another person Eating meals 4 Help from another person taking care of personal grooming 4 Help from another person bathing 4 Help from another person putting on and taking off regular upper body clothing 4 Help from another person toileting 4 6 Click Score Guidelines: 1 - Unable = Total/Dependent Assist 2 - A lot = Max/Moderate Assist 3 - A little = Minimum/Contact Guard Assist/Supervision 4 - Non = Modified [place]/Independent ASSESSMENT: Patient is functionally appropriate for discharge home once medically cleared. No further Occupational Therapy Services reccommended at this time. PLAN: Angelica Buckner will be d/c from acute OT services able to discuss the evaluation findings and treatment plan with the patient/family. Calli Graham OT/L b. [phone] NA = Not Assessed, I = Independent, CT = Modified Independent, Sup = Supervised, Set up = Physical Assistance for Set-up Only, Min = Minimal Assistance, Mod = Moderate Assistance, Max = Max assistance; Dep = Dependent; AROM = Active Range of Motion;PROM=Passive Range of Motion; MMT = Manual Muscle Test; UB = Upper Body; LB = Lower Body [facility] Summary Purpose Family History No Family History Records FoundNo Family History Records FoundNo Family History Records Found Advance Directives No Advanced Directives Records FoundNo Advanced Directives Records FoundNo Advanced Directives Records Found Additional Source Comments INFORMATION SOURCE (unrecogn ized section and content) DATE CREATED AUTHOR 12/07/2020 [facility] DATE CREATED AUTHOR AUTHOR'S ORGANIZ ATION 04/28/2021 [facility] DATE CREATED AUTHOR AUTHOR'S ORGANIZ ATION [facility]/20/2022 [facility] RECORDS PERTAINING TO PATIENTS WHO ARE OR HAVE BEEN ENROLLED IN A CHEMICAL DEPENDENCY/SUBSTANCEABUSE PROGRAM, SOME INFORMATION MAY BE OMITTED. This clinical summary was aggregated from multiple sources. Caution should be exercised in using it in the provision of clinical care. This summary normalizes information from multiple sources, and as a consequence, information in this document may materially change the coding, format and clinical context of patient data. In addition, data may be omitted in some cases. CLINICAL DECISIONS SHOULD BE BASED ON THE PRIMARY CLINICAL RECORDS. [facility] [employer]. provides no warranty or guarantee of the accuracy or completeness of information in this document.
[2023-12-20 07:37] LABS: Basophils Absolute Auto 0.1 10^3/uL (0.0-0.1); Basophils Percent Auto 0.8 % (0.2-2.0); Eosinophils Absolute Auto 0.2 10^3/uL (0.0-0.7); Eosinophils Percent Auto 2.8 % (0.9-7.0); Hematocrit 40.5 % (36.0-48.0); Hemoglobin 13.5 g/dL (12.0-16.0); Immature Granulocytes Abs Auto 0.02 10^3/uL (0.00-0.03); Immature Granulocytes Pct Auto 0.3 % (0.0-0.5); Lymphocytes Absolute Auto 1.6 10^3/uL (1.2-3.8); Lymphocytes Percent Auto 26.2 % (20.5-60.0); Mean Corpuscular HGB Conc 33.3 g/dL (29.9-35.2); Mean Corpuscular Hemoglobin 30.4 pg (26.7-34.0); Mean Corpuscular Volume 91.2 fL (81.0-99.0); Mean Platelet Volume 9.6 fL (9.5-13.5); Monocytes Absolute Auto 0.5 10^3/uL (0.3-0.8); Monocytes Percent Auto 7.9 % (1.7-12.0); Neutrophils Absolute Auto 3.8 10^3/uL (1.4-6.5); Platelet Count 235 10^3/uL (150-450); Red Blood Count 4.44 10^6/uL (4.20-5.40); White Blood Count 6.1 10^3/uL (4.0-11.0)
[2023-12-20 07:38] LABS: Bilirubin Urine NEGATIVE (NEGATIVE); Blood Urine NEGATIVE (NEGATIVE); Clarity Urine CLEAR (CLEAR); Color Urine LT. YELLOW (YELLOW); Glucose Urine UA NEGATIVE (NEGATIVE); Ketones Urine NEGATIVE (NEGATIVE); Leukocyte Esterase Urine SMALL (NEGATIVE); Nitrite Urine NEGATIVE (NEGATIVE); Protein Urine NEGATIVE (NEG/TRACE); Specific Gravity Urine 1.025 (1.005-1.025); Urobilinogen Urine 0.2 EU/dL (0.2-1.0)
[2023-12-20 07:41] LABS: Urine Microscopic Indicated YES
[2023-12-20 07:52] LABS: Creatinine Urine Random 155.82 mg/dL (20.00-300.00); Microalbum Creatinine Ratio Ur 8.3 mg/g (0.0-29.9); Microalbumin Urine Random <1.3 mg/dL (<=30.0)
[2023-12-20 07:53] LABS: RBC Urine NONE SEEN #/HPF (0-2); WBC Urine 0-2 #/HPF (NONE SEEN)
[2023-12-20 07:54] LABS: Bacteria Urine NONE SEEN #/HPF (NONE SEEN); Mucus Urine MODERATE (NONE SEEN); Squamous Epithelial Cell Urine FEW #/LPF (NONE/RARE)
[2023-12-20 08:32] LABS: Free T4 0.98 ng/dL (0.76-1.46)
[2023-12-20 08:37] LABS: Alanine Aminotransferase 21 U/L (14-59); Albumin Level 3.3 g/dL (3.4-5.0); Alkaline Phosphatase 81 U/L (46-116); Anion Gap 13.5; Aspartate Amino Transferase 16 U/L (15-37); BUN Creatinine Ratio 13.8; Bilirubin Total 0.4 mg/dL (0.2-1.0); Calcium 8.7 mg/dL (8.5-10.1); Carbon Dioxide 26.7 mmol/L (21.0-32.0); Chloride 105 mmol/L (98-107); Chol HDL Ratio 4.1; Cholesterol 235 mg/dL (<=200); Estimated GFR (African America >60 (>=60); Estimated GFR (Non-African Ame >60 (>=60); Globulin 3.4 g/dL; Glucose 98 mg/dL (74-106); HDL Cholesterol 57 mg/dL (40-60); Potassium 4.2 mmol/L (3.5-5.1); Sodium 141 mmol/L (136-145); Thyroid Stimulating Hormone 3.424 uIU/mL (0.358-3.740); Total Protein 6.7 g/dL (6.4-8.2); Triglycerides 111 mg/dL (<=150); VLDL CHOLESTEROL 22.2 mg/dL
== END 2023-12-20 06:58 | disposition home or self-care (01) ==
LOC: LAB 06:58
PROVIDERS: PCP Nurse Practitioner; Visit Provider Nurse Practitioner
DX: E78.2 Mixed hyperlipidemia (principal); I10 Essential (primary) hypertension; E03.9 Hypothyroidism, unspecified
CPT/HCPCS: 36415; 80053; 80061; 81001; 82043; 82570; 84439; 84443; 85025

== ENCOUNTER 2024-06-18 10:21 | Outpatient (OUT) | payer BC, SELFPAY ==
--- OUTSIDE RECORDS SUMMARY | 2024-06-18 10:31 | XMS_ITS | CCD ---
Author Organization [facility] Care Team Providers Care Senior Insight Manager Name Role Phone REQUEST, IP OCCUPATIONAL THERAPY SERVICE Consult ing Unavailable JHONATAN GONZALEZ Admitting Unavailable JHONATAN GONZALEZ Attending Unavailable PROVIDER, UNKNOWN Attending Unavailable PROVIDER, UNKNOWN Admitting Unavailable [facility] Referring Unavailab le PROVIDER, UNKNOWN Attending [...] Admitting Unavailable PATIENT, SELF Referring Unavailable AICHHOLZ, HOSE SPRAYER CHEN Attending Unavailable AICHHOLZ, HOSE SPRAYER CHEN Consulting Unavailable AICHHOLZ, HOSE SPRAYER CHEN Primary Care Unavailable AICHHOLZ, HOSE SPRAYER CHEN Admitting Unavailable AICHHOLZ, HOSE SPRAYER CHEN Attending Unavailable AICHHOLZ, HOSE SPRAYER CHEN Consulting Unavailable AICHHOLZ, HOSE SPRAYER CHEN Primary Care Unavailable AICHHOLZ, HOSE SPRAYER CHEN Admitting Unavailable DR BISHNU VILLA V Consulting Unavailable AICHHOLZ, HOSE SPRAYER CHEN Primary Care Unavailable AICHHOLZ, HOSE SPRAYER CHEN Admitting Unavailable AICHHOLZ, HOSE SPRAYER CHEN Attending Unavailable AICHHOLZ, HOSE SPRAYER CHEN Consulting Unavailable AICHHOLZ, CHEN Attending Unavailable AICHHOLZ, CHEN Attending Unavailable Aichholz TRANSMISSION ENGINEER, Chen Unavailable Goyo Mixon MD Primary Care Provider Aichholz TRANSMISSION ENGINEER, Chen Unavailable Aichholz TRANSMISSION ENGINEER, Chen Unavailable Medications Current Medications Medication Drug Class(es) Dates Sig (Normalized) Sig (Original) [id number] 200 actuat albuterol 0.09 mg/actuat metered dose inhaler (8 sources) beta2-Adrenergic Agonist take 2 puff(s) by inhalation every six hours for wheezing albuterol HFA 90 mcg/act inhaler Inhale 2 puffs every 6 (six) hours if needed for wheezing Active ibuprofen 800 mg oral tablet (8 sources) Nonsteroidal Anti-inflammatory Drug ibuprofen 800 MG tablet Take 400 mg by mouth every 8 (eight) hours if needed for mild pain Active levothyroxine sodium 0.088 mg oral tablet (12 sources) l-Thyroxine Start: 06-16-2023 End: 09-16-2024 take 1 tablet by mouth before mealtime levothyroxine (Synthroid, Levoxyl) 88 MCG tablet Indications: Hypothyroidism, unspecified Take 1 tablet (88 mcg) by mouth in the morning. Take before meals. 90 tablet 1 06/18/2024 09/16/2024 Active 24 hr metoprolol succinate 25 mg extended release oral tablet (12 sources) beta-Adrenergic Yakov Start: 06-18-2024 End: 09-16-2024 take 2 tablets by mouth every twenty-four hours in the morning metoprolol succinate XL (Toprol-XL) 25 MG 24 hr tablet Indications: Heart palpitations , Primary hypertension (CMS/HCC) Take 2 tablets (50 mg) by mouth in the morning and 2 tablets (50 mg) before bedtime. Do not crush or chew.. 360 tablet 1 06/18/2024 09/16/2024 Active Start: 06-16-2023 End: 06-18-2024 take 3 tablets by mouth once daily metoprolol succinate XL (Toprol-XL) 25 MG 24 hr tablet Indications: Primary hypertension (CMS/HCC) Take 3 tablets (75 mg) by mouth Daily Do not crush or chew. 270 tablet 1 12/19/2023 06/18/2024 Discontinued (Reorder) nystatin [id number] unt/ml topical cream (4 sources) Polyene Antifungal Start: 06-18-2024 End: 06-25-2024 nystatin (Mycostatin) cream Indications: Yeast dermatitis Apply topically 2 (two) times a day for 7 days 30 g 1 06/18/2024 06/25/2024 Active Start: 12-19-2023 End: 01-02-2024 nystatin (Mycostatin) cream Indications: Candidiasis Apply 1 application topically if needed (yeast dermatitis on skin) for up to 14 days 60 g 1 12/19/2023 01/02/2024 Active pravastatin sodium 10 mg oral tablet (13 sources) HMG-CoA Reductase Inhibitor Start: 06-16-2023 End: 09-16-2024 take 1 tablet by mouth once daily at bedtime pravastatin (Pravachol) 10 MG tablet Indications: Mixed hyperlipidemia (CMS/HCC) Take 1 tablet (10 mg) by mouth Daily Take 10 mg by mouth at bedtime 90 tablet 1 06/18/2024 09/16/2024 Active Problems Active Problems Problem Classification Problem Date Documented Da te Episodic/Chronic Anxiety disorders (8 sources) Mixed anxiety and depressive disorder; Translations: [Anxiety disorder, unspecified] Onset: 06-16-2023 06-16-2023 Chronic Cardiac dysrhythmias (12 sources) Palpitations; Translations: [Palpitations] Onset: 06-16-2023 06-16-2023 Episodic Disorders of lipid metabolism (19 sources) Hyperlipidemia, unspecified; Translations: [Mixed hyperlipidemia] Onset: 02-18-2022 Chronic Diverticulosis and diverticulitis (8 sources) Diverticulitis; Translations: [Diverticulitis of intestine, part unspecified, without perforation or abscess without bleeding] Onset: 06-16-2023 06-16-2023 Chronic Essential hypertension (16 sources) Essential (primary) hypertension; Translations: [Essential hypertension] Onset: 12-05-2021 Chronic Mycoses (9 sources) Candidiasis; Translations: [Candidiasis, unspecified] Onset: 12-19-2023 12-19-2023 Episodic Other nutritional; endocrine; and metabolic disorders (12 sources) Obesity caused by energy imbalance; Translations: [Morbid (severe) obesity due to excess calories] Onset: 12-19-2023 12-19-2023 Chronic Other nutritional; endocrine; and metabolic disorders (15 sources) Body mass index 40+ - severely obese; Translations: [Body mass index (BMI) 45.0-49.9, adult] Onset: 12-19-2023 12-19-2023 Chronic Other screening for suspected conditions (not mental disorders or infectious disease) (10 sources) Patient encounter status; Translations: [Encounter for screening mammogram for malignant neoplasm of breast] Onset: 06-18-2024 06-18-2024 Episodic Substance-related disorders (5 sources) Tobacco dependence caused by cigarettes; Translations: [Nicotine dependence, cigarettes, uncomplicated] Onset: 06-18-2024 Resolved: 06-18-2024 06-18-2024 Chronic Thyroid disorders (17 sources) Hypothyroidism, unspecified; Translations: [Hypothyroidism] Onset: 12-08-2021 12-19-2023 Chronic Past or Other Problems Problem Classification Problem Date Documented Da te Episodic/Chronic Genitourinary symptoms and ill-defined conditions (4 sources) Dysuria; Translations: [DYSURIA] Onset: 10-14-2021 Episodic Results Test Name Value Interpretation Reference Range Facility [facility] UA (CLEAN/CATCH) MICROSC OPIC IF INDICATEon 12-20-2023 BILIRUBIN URINE Negative NEGATIVE [facility] BLOOD URINE Negative NEGATIVE [facility] Clarity (U) CLEAR CLEAR [facility] Color (U) LT. YELLOW YELLOW [facility] GLUCOSE URINE UA Negative NEGATIVE mg/dL [facility] Interpretation and review of laboratory results Abnormal [facility] Ketones Ql (U) Negative NEGATIVE mg/dL [facility] Leukocyte esterase Test strip Ql (U) SMALL Abnormal NEGATIVE [facility] NITRITE URINE Negative NEGATIVE [facility] pH (U) 6.0 [pH] 5.0 - 9.0 [facility] PROTEIN URINE Negative NEG/TRACE mg/dL [facility] SPECIFIC GRAVITY URINE 1.025 1.005 - 1.025 [facility] URINE MICROSCOPIC INDICATED YES [facility] UROBILINOGEN URINE 0.2 EU/dL 0.2 - 1.0 EU/dL [facility] LIPID PROFILEon 02-18-2022 CHOL-HDL RATIO NORM SEE BELOW Normal [facility] Comment on above: Result Comment: 3.3 - 4.4 LOW RISK 4.4 - 7.1 AVERAGE RISK 7.1 - 11.0 MODERATE RISK >11.0 HIGH RISK Performed By: #### A ST, LIPID, ALT #### [facility] [address] [place] [address] Dr. Tiffanie De Guzman Cholesterol [Mass/Vol] 199 mg/dL Normal <=200 [facility] Comment on above: Performed By: #### A ST, LIPID, ALT #### [facility] [address] [address] [address] Tiffanie De Guzman Cholesterol in HDL [Mass/Vol] 53 mg/dL Normal 40-[address] [facility] Comment on above: Performed By: #### A ST, LIPID, ALT #### [facility] [address] [address] [address] Tiffanie De Guzman Cholesterol in LDL [Mass/Vol] 115.2 mg/dL Normal [facility] Comment on above: Performed By: #### A ST, LIPID, ALT #### [facility] [address] [address] [address] Tiffanie De Guzman Cholesterol.total/C holesterol in HDL [Mass ratio] 3.8 {ratio} Normal [facility] Comment on above: Performed By: #### A ST, LIPID, ALT #### [facility] [address] [address] [address] Tiffanie De Guzman HDL NORMAL > or = 60 mg/dl - LO W CARDIOVASCULAR RISK <40 mg/dl - HIGH CARDIOVASCULAR RISK Normal [facility] Comment on above: Performed By: #### A ST, LIPID, ALT #### [facility] [address] [address] [address] Tiffanie De Guzman LDL CALC NORMAL SEE BELOW Normal [facility] Comment on above: Result Comment: <100 mg/dl OPTIMAL 100 - 129 mg/dl NEAR OR ABOVE OPTIMAL 130 - 159 mg/dl BORDERLINE HIGH 160 - 189 mg/dl HIGH >190 mg/dl VERY HIGH Performed By: #### A ST, LIPID, ALT #### [facility] [address] [address] [address] Tiffanie De Guzman Triglyceride [Mass/Vol] 154 mg/dL Critically high <=150 [facility] Comment on above: Performed By: #### A ST, LIPID, ALT #### [facility] [address] [address] [address] Tiffanie De Guzman VLDL CALC 30.8 mg/dL Normal [facility] Comment on above: Performed By: #### A ST, LIPID, ALT #### [facility] [address] [place] [address] Dr. Tiffanie De Guzman SGOTon 02-18-2022 AST [Catalytic activity/Vol] 16 U/L Normal 15-[address] [facility] Comment on above: Performed By: #### A ST, LIPID, ALT #### [facility] [address] [place] [address] Dr. Tiffanie De Guzman SGPTon 02-18-2022 ALT [Catalytic activity/Vol] 20 U/L Normal 14-59 [facility] Comment on above: Performed By: #### A ST, LIPID, ALT #### [facility] [address] [place] [address] Dr. Tiffanie De Guzman CBC AUTO DIFFon 12-05-2021 BASO # 0.0 103/ul Normal 0.0-0.[address] [facility] Comment on above: Performed By: #### C BC #### [facility] [address] [place] [address] Dr. Tiffanie De Guzman Basophils/100 WBC (Bld) 0.6 % Normal 0.2-2.[address] [facility] Comment on above: Performed By: #### C BC #### [facility] [address] [place] [address] Dr. Tiffanie De Guzman EO # 0.2 103/ul Normal 0.0-0.[address] [facility] Comment on above: Performed By: #### C BC #### [facility] [address] [place] [address] Dr. Tiffanei De Guzman Eosinophils/100 WBC (Bld) 3.4 % Normal 0.9-7.[address] [facility] Comment on above: Performed By: #### C BC #### [facility] [address] [place] [address] Dr. Tiffanie De Guzman Erythrocyte distribution width (RBC) [Ratio] 12.4 % Normal 11.0-15.[address] [facility] Comment on above: Performed By: #### C BC #### [facility] [address] [place] [address] Dr. Tiffanie De Guzman Hematocrit (Bld) [Volume fraction] 39.8 % Normal 36.0-48.[address] [facility] Comment on above: Performed By: #### C BC #### [facility] [address] [place] [address] Dr. Tiffanie De Guzman Hemoglobin (Bld) [Mass/Vol] 13.5 g/dL Normal 12.0-16.[address] [facility] Comment on above: Performed By: #### C BC #### [facility] [address] [place] [address] Dr. Tiffanie De Guzman IG # 0.01 10e3/ul Normal 0.00-0.[address] [facility] Comment on above: Performed By: #### C BC #### [facility] [address] [place] [address] Dr. Tiffanie De Guzman IG % 0.1 % Normal 0.0-0.[address] [facility] Comment on above: Performed By: #### C BC #### [facility] [address] [place] [address] Dr. Tiffanie De Guzman LYMPH # 2.2 103/ul Normal 1.2-3.[address] [facility] Comment on above: Performed By: #### C BC #### [facility] [address] [place] [address] Dr. Tiffanie De Guzman Lymphocytes/100 WBC (Bld) 30.2 % Normal 20.5-60.[address] [facility] Comment on above: Performed By: #### C BC #### [facility] [address] [place] [address] Dr. Tiffanie De Guzman MANUAL DIFF REQ NO Normal [facility] Comment on above: Performed By: #### C BC #### [facility] [address] [place] [address] Dr. Tiffanie De Guzman MCH (RBC) [Entitic mass] 30.9 pg Normal 26.7-34.[address] [facility] Comment on above: Performed By: #### C BC #### [facility] [address] [place] [address] Dr. Tiffanie De Guzman MCHC (RBC) [Mass/Vol] 33.9 g/dL Normal 29.9-35.[address] [facility] Comment on above: Performed By: #### C BC #### [facility] [address] [address] [address] Tiffanie De Guzman MCV (RBC) [Entitic vol] 91.1 fL Normal 81.0-99.[address] [facility] Comment on above: Performed By: #### C BC #### [facility] [address] [address] [address] Tiffanie De Guzman MONO # 0.7 103/ul Normal 0.3-0.8 [facility] Comment on above: Performed By: #### C BC #### [facility] [address] [place] [address] Dr. Tiffanie eD Guzman Monocytes/100 WBC (Bld) 9.2 % Normal 1.7-12.[address] [facility] Comment on above: Performed By: #### C BC #### [facility] [address] [place] [address] Dr. Tiffanie De Guzman NEUT # 4.1 103/ul Normal 1.4-6.[address] [facility] Comment on above: Performed By: #### C BC #### [facility] [address] [place] [address] Dr. Tiffanie De Guzman Neutrophils/100 WBC (Bld) 56.5 % Normal 43.0-75.[address] [facility] Comment on above: Performed By: #### C BC #### [facility] [address] [place] [address] Dr. Tiffanie De Guzman Platelet mean volume (Bld) [Entitic vol] 9.5 fL Normal 9.5-13.5 [facility] Comment on above: Performed By: #### C BC #### [facility] [address] [place] [address] Dr. Tiffanie De Guzman PLT 262 103/ul Normal 150-450 [facility] Comment on above: Performed By: #### C BC #### [facility] [address] [place] [address] Dr. Tiffanie De Guzman RBC 4.37 106/ul Normal 4.20-5.40 [facility] Comment on above: Performed By: #### C BC #### [facility] [address] [address] [address] Tiffanie De Guzman WBC 7.2 103/ul Normal 4.0-11.[address] [facility] Comment on above: Performed By: #### C BC #### [facility] [address] [address] [address] Tiffanie De Guzman FREE T4on 12-05-2021 Free T4 [Mass/Vol] 0.99 ng/dL Normal 0.76-1.46 [facility] Comment on above: Performed By: #### F T4 #### [facility] [address] [address] [address] Tifafnie De Guzman LIPID PROFILEon 12-05-2021 CHOL-HDL RATIO NORM SEE BELOW Normal [facility] Comment on above: Result Comment: 3.3 - 4.4 LOW RISK 4.4 - 7.1 AVERAGE RISK 7.1 - 11.0 MODERATE RISK >11.0 HIGH RISK Performed By: #### L IPID, CMP, TSH #### [facility] [address] [address] [address] Tiffanie De Guzman Cholesterol [Mass/Vol] 242 mg/dL Critically high <=[address] [facility] Comment on above: Performed By: #### L IPID, CMP, TSH #### [facility] [address] [address] [address] Tiffanie De Guzman Cholesterol in HDL [Mass/Vol] 53 mg/dL Normal 40-[address] [facility] Comment on above: Performed By: #### L IPID, CMP, TSH #### [facility] [address] [address] [address] Tiffanie De Guzman Cholesterol in LDL [Mass/Vol] 164.2 mg/dL Normal [facility] Comment on above: Performed By: #### L IPID, CMP, TSH #### [facility] [address] [address] [address] Tiffanie De Guzman Cholesterol.total/C holesterol in HDL [Mass ratio] 4.6 {ratio} Normal [facility] Comment on above: Performed By: #### L IPID, CMP, TSH #### [facility] [address] [address] [address] Tiffanie De Guzman HDL NORMAL > or = 60 mg/dl - LO W CARDIOVASCULAR RISK <40 mg/dl - HIGH CARDIOVASCULAR RISK Normal [facility] Comment on above: Performed By: #### L IPID, CMP, TSH #### [facility] [address] [address] [address] Tiffanie De Guzman LDL CALC NORMAL SEE BELOW Normal [facility] Comment on above: Result Comment: <100 mg/dl OPTIMAL 100 - 129 mg/dl NEAR OR ABOVE OPTIMAL 130 - 159 mg/dl BORDERLINE HIGH 160 - 189 mg/dl HIGH >190 mg/dl VERY HIGH Performed By: #### L IPID, CMP, TSH #### [facility] [address] [address] [address] Tiffanie De Guzman Triglyceride [Mass/Vol] 124 mg/dL Normal <=[address] [facility] Comment on above: Performed By: #### L IPID, CMP, TSH #### [facility] [address] [address] [address] Tiffanie De Guzman VLDL CALC 24.8 mg/dL Normal [facility] Comment on above: Performed By: #### L IPID, CMP, TSH #### [facility] [address] [address] [address] Tiffanie De Guzman PROF 14(COMP METB)on 022 Albumin [Mass/Vol] 3.6 g/dL Normal 3.4-5.0 [facility] Comment on above: Performed By: #### L IPID, CMP, TSH #### [facility] [address] [place] [address] Dr. Tiffanie De Guzman Albumin/Globulin [Mass ratio] 1.1 {ratio} Normal [facility] Comment on above: Performed By: #### L IPID, CMP, TSH #### [facility] [address] [address] [address] Tiffanie De Guzman ALP [Catalytic activity/Vol] 79 U/L Normal 46-[address] [facility] Comment on above: Performed By: #### L IPID, CMP, TSH #### [facility] [address] [address] [address] Tiffanie De Guzman ALT [Catalytic activity/Vol] 26 U/L Normal 14-[address] [facility] Comment on above: Performed By: #### L IPID, CMP, TSH #### [facility] [address] [address] [address] Tiffanie De Guzman Anion gap [Moles/Vol] 10.6 mmol/L Normal [facility] Comment on above: Performed By: #### L IPID, CMP, TSH #### [facility] [address] [address] [address] Tiffanie De Guzman AST [Catalytic activity/Vol] 13 U/L Critically low 15-[address] [facility] Comment on above: Performed By: #### L IPID, CMP, TSH #### [facility] [address] [address] [address] Tiffanie De Guzman Bilirubin [Mass/Vol] 0.4 mg/dL Normal 0.2-1.[address] [facility] Comment on above: Performed By: #### L IPID, CMP, TSH #### [facility] [address] [address] [address] Tiffanie De Guzman Calcium [Mass/Vol] 8.6 mg/dL Normal 8.5-10.1 [facility] Comment on above: Performed By: #### L IPID, CMP, TSH #### [facility] [address] [address] [address] Tiffanie De Guzman Chloride [Moles/Vol] 108 mmol/L Critically high 98-107 [facility] Comment on above: Performed By: #### L IPID, CMP, TSH #### [facility] [address] [address] [address] Tiffanie De Guzman CO2 [Moles/Vol] 27.9 mmol/L Normal 21.0-32.0 [facility] Comment on above: Performed By: #### L IPID, CMP, TSH #### [facility] [address] [address] [address] Tiffanie De Guzman Creatinine [Mass/Vol] 0.88 mg/dL Normal 0.55-1.[address] [facility] Comment on above: Performed By: #### L IPID, CMP, TSH #### [facility] [address] [address] [address] Tiffanie De Guzman EGFR-AF AUSTRALIAN >60 Normal >=60 [facility] Comment on above: Performed By: #### L IPID, CMP, TSH #### [facility] [address] [address] [address] Tiffanie De Guzman EGFR-NON AF AUSTRALIAN >60 Normal >=[address] [facility] Comment on above: Performed By: #### L IPID, CMP, TSH #### [facility] [address] [address] [address] Tiffanie De Guzman Globulin (S) [Mass/Vol] 3.4 g/dL Normal [facility] Comment on above: Performed By: #### L IPID, CMP, TSH #### [facility] [address] [address] [address] Tiffanie De Guzman Glucose [Mass/Vol] 107 mg/dL Critically high 74-106 [facility] Comment on above: Performed By: #### L IPID, CMP, TSH #### [facility] [address] [address] [address] Tiffanie De Guzman Potassium [Moles/Vol] 4.5 mmol/L Normal 3.5-5.[address] [facility] Comment on above: Performed By: #### L IPID, CMP, TSH #### [facility] [address] [address] [address] Tiffanie De Guzman Protein [Mass/Vol] 7.0 g/dL Normal 6.4-8.2 [facility] Comment on above: Performed By: #### L IPID, CMP, TSH #### [facility] [address] [address] [address] Tiffanie De Guzman Sodium [Moles/Vol] 142 mmol/L Normal 136-145 [facility] Comment on above: Performed By: #### L IPID, CMP, TSH #### [facility] [address] [address] [address] Tiffanie De Guzman Urea nitrogen [Mass/Vol] 12.0 mg/dL Normal 7.0-18.[address] [facility] Comment on above: Performed By: #### L IPID, CMP, TSH #### [facility] [address] [place] [address] Dr. Tiffanie De Guzman Urea nitrogen/Creatinine [Mass ratio] 13.6 mg/mg Normal [facility] Comment on above: Performed By: #### L IPID, CMP, TSH #### [facility] [address] [place] [address] Dr. Tiffanie De Guzman TSHon 12-05-2021 TSH 3.564 uIU/mL Normal 0.358-3.740 [facility] Comment on above: Performed By: #### L IPID, CMP, TSH #### [facility] [address] [place] [address] Dr. Tiffanie De Guzman UA RANDOM W/MICROSCOPICon BACTERIA TRACE Abnormal NONE SEEN [facility] Comment on above: Performed By: #### U AMIC #### [facility] [address] [place] [address] Dr. Tiffanie De Guzman Bilirubin Ql (U) Negative Normal NEGATIVE [facility] Comment on above: Performed By: #### U AMIC #### [facility] [address] [place] [address] Dr. Tiffanie De Guzman CAST NONE SEEN Normal NONE SEEN [facility] Comment on above: Performed By: #### U AMIC #### [facility] [address] [place] [address] Dr. Tiffanie De Guzman Clarity (U) CLEAR Normal CLEAR [facility] Comment on above: Performed By: #### U AMIC #### [facility] [address] [place] [address] Dr. Tiffanie De Guzman Color (U) LT. YELLOW Normal YELLOW [facility] Comment on above: Performed By: #### U AMIC #### [facility] [address] [place] [address] Dr. Tiffanie De Guzman Crystals LM Nom (Urine sed) NONE SEEN Normal NONE SEEN [facility] Comment on above: Performed By: #### U AMIC #### [facility] [address] [address] [address] Tiffanie De Guzman Epithelial cells LM Ql (Urine sed) FEW Abnormal NONE SEEN /RARE [facility] Comment on above: Performed By: #### U AMIC #### [facility] [address] [place] [address] Dr. Tiffanie De Guzman Glucose Ql (U) Negative Normal NEGATIVE [facility] Comment on above: Performed By: #### U AMIC #### [facility] [address] [address] [address] Tiffanie De Guzman Hemoglobin Ql (U) TRACE-INTACT Abnormal NEGATIVE [facility] Comment on above: Performed By: #### U AMIC #### [facility] [address] [place] [address] Dr. Tiffanie De Guzman Ketones Ql (U) Negative Normal NEGATIVE [facility] Comment on above: Performed By: #### U AMIC #### [facility] [address] [place] [address] Dr. Tiffanie De Guzman LEUKOCYTES SMALL Abnormal NEGATIVE [facility] Comment on above: Performed By: #### U AMIC #### [facility] [address] [address] [address] Tiffanie De Guzman MUCOUS NONE SEEN Normal NONE SEEN [facility] Comment on above: Performed By: #### U AMIC #### [facility] [address] [place] [address] Dr. Tiffanie De Guzman Nitrite Ql (U) Negative Normal NEGATIVE [facility] Comment on above: Performed By: #### U AMIC #### [facility] [address] [place] [address] Dr. Tiffanie De Guzman pH (U) 6.0 [pH] Normal 5-[address] [facility] Comment on above: Performed By: #### U AMIC #### [facility] [address] [place] [address] Dr. Tiffanie De Guzman RBC 0-2 Normal 0-[address] [facility] Comment on above: Performed By: #### U AMIC #### [facility] [address] [place] [address] Dr. Tiffanie De Guzman SPEC GRAVITY 1.010 Normal 1.005-<=1.025 [facility] Comment on above: Performed By: #### U AMIC #### [facility] [address] [address] [address] Tiffanie De Guzman UA PROTEIN Negative Normal NEGATIVE/ TRACE [facility] Comment on above: Performed By: #### U AMIC #### [facility] [address] [address] [address] Tiffanie De Guzman Urobilinogen Qn (U) 0.2 {Madison'U}/dL Normal 0.2 - 1. [address] [facility] Comment on above: Performed By: #### U AMIC #### [facility] [address] [address] [address] Tiffanie De Guzman WBC 0-2 Abnormal NONE SEEN [facility] Comment on above: Performed By: #### U AMIC #### [facility] [address] [place] [address] Dr. Tiffanie De Guzman XR KUB 1 [...] BISHNU VILLA Date: 2021-10-15 06:54 Normal [facility] Progress Noteson 12-29-2020 [employer] Authentication Interface Message Text Yudy Cardona MD Ms. Ibrahim is a 55 y/o female who is [...] on 12/09/2020. Yudy Cardona MD Normal [facility] [employer] Progress Noteson 12-26-2020 [employer] Authentication Interface Message Text [facility] Angelica Ibrahim is a 55 year old female here [...] Gatherings with Friends and Family: * Attends Yarsanism Services: * Active Member of Clubs or [...] no edema Neuro: Grossly intact Assessment: Angelica Ibrahim is a 55 year old female with [...] Gonzalez MD 12/26/20 1:08 PM Normal [facility] [employer] Authentication Interface Message Text Patient was identified by name and date of . Keshia Ashby Patient at risk for falls:No Falls Risk protocol implemented: No Normal [facility] BASIC METABOLIC PANELon 11-20 Anion gap [Moles/Vol] 12 mmol/L Normal 5-13 [facility] Comment on above: Performed By: #### P T, APTT #### [facility] [address] [place] [address], Calcium [Mass/Vol] 8.3 mg/dL Low 8.4-10.4 [facility] Comment on above: Performed By: #### P T, APTT #### [facility] [address] [place] [address], Chloride [Moles/Vol] 105 mmol/L Normal 97-111 [facility] Comment on above: Performed By: #### P T, APTT #### [facility] [address] [place], [place], CO2 [Moles/Vol] 27 mmol/L Normal 21-30 [facility] [place] [employer] [facility] Comment on above: Performed By: #### P T, APTT #### [facility] [address] [place] [address], Creatinine [Mass/Vol] 0.82 mg/dL Normal 0.50-1.10 [facility] Comment on above: Performed By: #### P T, APTT #### S [facility] [address] [place] [address], ESTIMATED GFR (CKD-EPI) 80 mL/min/1.73sqm Normal >=60 [facility] Comment on above: Performed By: #### P T, APTT #### S [facility] [address] [place] [address], Glucose [Mass/Vol] 100 mg/dL Normal 68-110 The [facility] Comment on above: Performed By: #### P T, APTT #### [facility] [address] [place] [address], Potassium [Moles/Vol] 3.9 mmol/L Normal 3.3-5.3 [facility] Comment on above: Performed By: #### P T, APTT #### [facility] [address] [place] [address], Sodium [Moles/Vol] 140 mmol/L Normal 135-148 [facility] Comment on above: Performed By: #### P T, APTT #### [facility] [address] [place] [address], Urea nitrogen [Mass/Vol] 10 mg/dL Normal 8-22 [facility] Comment on above: Performed By: #### P T, APTT #### [facility] [address] [place] [address], COMPLETE BLOOD COUNTon 12-14 Erythrocyte distribution width (RBC) [Ratio] 13.6 % Normal 11.5-14.5 The [facility] Comment on above: Performed By: #### P T, APTT #### S [facility] [address] [place] [address], Hematocrit (Bld) [Volume fraction] 30.2 % Low 36.0-46.0 [facility] Comment on above: Performed By: #### P T, APTT #### S [facility] [address] [place] [address], Hemoglobin (Bld) [Mass/Vol] 10.3 g/dL Low 12.0-15.0 The [facility] Comment on above: Performed By: #### P T, APTT #### [facility] [address] [place] [address], MCH (RBC) [Entitic mass] 30.6 pg Normal 26.0-34.0 [facility] Comment on above: Performed By: #### P T, APTT #### [facility] [address] [place] [address], MCHC (RBC) [Mass/Vol] 34.1 g/dL Normal 32.0-35.9 [facility] Comment on above: Performed By: #### P T, APTT #### [facility] [address] [place] [address], MCV (RBC) [Entitic vol] 90 fL Normal 80-100 [facility] Comment on above: Performed By: #### P T, APTT #### [facility] [address] [place] [address], Platelet mean volume (Bld) [Entitic vol] 7.7 fL Normal 7.5-11.2 The [facility] Comment on above: Performed By: #### P T, APTT #### [facility] [address] [place] [address], Platelets (Bld) [#/Vol] 293 10*3/uL Normal 150-400 [facility] Comment on above: Performed By: #### P T, APTT #### [facility] [address] [place] [address], RBC (Bld) [#/Vol] 3.36 10*6/uL Low 4.00-5.20 The [facility] Comment on above: Performed By: #### P T, APTT #### [facility] [address] [place] [address], WBC (Bld) [#/Vol] 5.8 10*3/uL Normal 4.5-11.5 The [facility] Comment on above: Performed By: #### P T, APTT #### [facility] [address] [place] [address], Care Plan Noteon 12-14-2020 [employer] Authentication Interface Message Text Problem: Routine Care: [...] injury during hospitalization Outcome: Completed Normal [facility] [employer] Authentication Interface Message Text Problem: Routine Care: [...] injury during hospitalization Outcome: Progressing Normal [facility] [employer] MAGNESIUMon 12-14-2020 Magnesium [Mass/Vol] 1.9 mg/dL Normal 1.6-2.8 [facility] [employer] [facility] Comment on above: Performed By: #### P T, APTT #### [facility] [address] [place] [address], [phone] Progress Noteson 12-14-2020 [employer] Authentication Interface Message Text Attestation signed by [...] naloxone 0.4 mg PRN IV Assessment: Ms. Ibrahim is a 55yo female who is POD#3???s/p???laparosc [...] Angelique Kimbrough PA-C General Surgery Normal [facility] BASIC METABOLIC PANELon 11-20 Anion gap [Moles/Vol] 12 mmol/L Normal 07-31 [facility] Comment on above: Performed By: #### P T, APTT #### [facility] [address] [place] [address], [phone] Calcium [Mass/Vol] 8.1 mg/dL Low 8.4-10.4 [facility] Comment on above: Performed By: #### P T, APTT #### [facility] [address] [place] [address], Chloride [Moles/Vol] 109 mmol/L Normal 97-111 The [facility] Comment on above: Performed By: #### P T, APTT #### S [facility] LAB[facility] [address] [place] [address], CO2 [Moles/Vol] 24 mmol/L Normal 21-30 The [facility] Comment on above: Performed By: #### P T, APTT #### [facility] [address] [place] [address], Creatinine [Mass/Vol] 1.24 mg/dL High 0.50-1.10 The [facility] Comment on above: Performed By: #### P T, APTT #### [facility] [address] [place] [address], ESTIMATED GFR (CKD-EPI) 49 mL/min/1.73sqm Low >=60 [facility] Comment on above: Performed By: #### P T, APTT #### [facility] [address] [place] [address], Glucose [Mass/Vol] 90 mg/dL Normal 68-110 [facility] Comment on above: Performed By: #### P T, APTT #### [facility] [address] [place] [address], Potassium [Moles/Vol] 4.0 mmol/L Normal 3.3-5.3 The [facility] Comment on above: Performed By: #### P T, APTT #### [facility] [address] [place] [address], Sodium [Moles/Vol] 141 mmol/L Normal 135-148 The [facility] Comment on above: Performed By: #### P T, APTT #### S [facility] [address] [place] [address], Urea nitrogen [Mass/Vol] 13 mg/dL Normal 8-22 [facility] Comment on above: Performed By: #### P T, APTT #### [facility] [address] [place] [address], COMPLETE BLOOD COUNTon 12-13 Erythrocyte distribution width (RBC) [Ratio] 14.0 % Normal 11.5-14.5 [facility] Comment on above: Performed By: #### P T, APTT #### [facility] [address] [place] [address], Hematocrit (Bld) [Volume fraction] 30.3 % Low 36.0-46.0 The [facility] CenterIndependent [facility] NetworkSelect [facility] Comment on above: Performed By: #### P T, APTT #### [facility] [address] [place] [address], Hemoglobin (Bld) [Mass/Vol] 10.3 g/dL Low 12.0-15.0 [facility] Comment on above: Performed By: #### P T, APTT #### [facility] [address] [place] [address], MCH (RBC) [Entitic mass] 30.9 pg Normal 26.0-34.0 [facility] Comment on above: Performed By: #### P T, APTT #### [facility] [address] [place] [address], MCHC (RBC) [Mass/Vol] 34.1 g/dL Normal 32.0-35.9 [facility] Comment on above: Performed By: #### P T, APTT #### [facility] [address] [place] [address], MCV (RBC) [Entitic vol] 91 fL Normal 80-100 [facility] Comment on above: Performed By: #### P T, APTT #### [facility] [address] [place] [address], Platelet mean volume (Bld) [Entitic vol] 7.7 fL Normal 7.5-11.2 [facility] Comment on above: Performed By: #### P T, APTT #### [facility] [address] [place] [address], Platelets (Bld) [#/Vol] 242 10*3/uL Normal 150-400 [facility] Comment on above: Performed By: #### P T, APTT #### [facility] [address], [place], RBC (Bld) [#/Vol] 3.34 10*6/uL Low 4.00-5.20 [facility] Comment on above: Performed By: #### P T, APTT #### [facility] [address], [place], WBC (Bld) [#/Vol] 6.5 10*3/uL Normal 4.5-11.5 The [facility] Comment on above: Performed By: #### P T, APTT #### [facility] [address], [place], Care Plan Noteon 12-13-2020 [employer] Authentication Interface Message Text Problem: Routine Care: [...] injury during hospitalization Outcome: Progressing Normal [facility] [employer] MAGNESIUMon 12-13-2020 Magnesium [Mass/Vol] 1.9 mg/dL Normal 1.6-2.8 [facility] [employer] [facility] Comment on above: Performed By: #### P T, APTT #### [facility] [address] [place], [phone] Progress Noteson 12-13-2020 [employer] Authentication Interface Message Text Attestation signed by [...] flatus + bowel movements ??? Voiding post castaneda removal ??? Using IS Objective: Tmax (24 [...] naloxone 0.4 mg PRN IV Assessment: Ms. Ibrahim is a 55yo female who is POD#3 [...] Colleen Slater MD General Surgery Normal [facility] BASIC METABOLIC PANELon 09-2 -2020 Anion gap [Moles/Vol] 11 mmol/L Normal 5-13 [facility] Comment on above: Performed By: #### P T, APTT #### [facility] [address] [place] [address], Calcium [Mass/Vol] 8.1 mg/dL Low 8.4-10.4 [facility] Comment on above: Performed By: #### P T, APTT #### [facility] [address] [place] [address], Chloride [Moles/Vol] 104 mmol/L Normal 97-111 The [facility] Comment on above: Performed By: #### P T, APTT #### [facility] [address] [place] [address], CO2 [Moles/Vol] 25 mmol/L Normal 21-30 The [facility] Comment on above: Performed By: #### P T, APTT #### [facility] [address] [place] [address], Creatinine [Mass/Vol] 1.28 mg/dL High 0.50-1.10 The [facility] Comment on above: Performed By: #### P T, APTT #### [facility] [address] [place] [address], ESTIMATED GFR (CKD-EPI) 47 mL/min/1.73sqm Low >=60 [facility] Comment on above: Performed By: #### P T, APTT #### S [facility] [address] [place] [address], Glucose [Mass/Vol] 99 mg/dL Normal 68-110 The [facility] [employer] [facility] Comment on above: Performed By: #### P T, APTT #### S [facility] [address] [place] [address], Potassium [Moles/Vol] 4.0 mmol/L Normal 3.3-5.3 [facility] Comment on above: Performed By: #### P T, APTT #### [facility] [address] [place] [address], Sodium [Moles/Vol] 136 mmol/L Normal 135-148 [facility] Comment on above: Performed By: #### P T, APTT #### [facility] [address] [place] [address], Urea nitrogen [Mass/Vol] 15 mg/dL Normal 8-22 [facility] Comment on above: Performed By: #### P T, APTT #### [facility] [address] [place] [address], COMPLETE BLOOD COUNTon 12-12 Erythrocyte distribution width (RBC) [Ratio] 13.6 % Normal 11.5-14.5 [facility] Comment on above: Performed By: #### C BC ####[facility] [id number] [place] [address], Hematocrit (Bld) [Volume fraction] 28.8 % Low 36.0-46.0 [facility] Comment on above: Performed By: #### C BC ####[facility] [id number] [place] [address], Hemoglobin (Bld) [Mass/Vol] 9.7 g/dL Low 12.0-15.0 [facility] Comment on above: Performed By: #### C BC ####S PATHOLOGY [id number] [place] [address] [place], MCH (RBC) [Entitic mass] 30.0 pg Normal 26.0-34.0 [facility] Comment on above: Performed By: #### C BC ####S PATHOLOGY [id number] [place], [place], MCHC (RBC) [Mass/Vol] 33.6 g/dL Normal 32.0-35.9 [facility] Comment on above: Performed By: #### C BC ####S PATHOLOGY [id number] [place], [place], MCV (RBC) [Entitic vol] 89 fL Normal 80-100 [facility] Comment on above: Performed By: #### C BC ####S PATHOLOGY [id number] [place] [address], Platelet mean volume (Bld) [Entitic vol] 7.6 fL Normal 7.5-11.2 [facility] Comment on above: Performed By: #### C BC ####[facility] [id number] [place] [address], Platelets (Bld) [#/Vol] 233 10*3/uL Normal 150-400 [facility] Comment on above: Performed By: #### C BC ####[facility] [id number] [place], [place], RBC (Bld) [#/Vol] 3.22 10*6/uL Low 4.00-5.20 The [facility] Comment on above: Performed By: #### C BC ####S PATHOLOGY [id number] [place] [address], WBC (Bld) [#/Vol] 7.7 10*3/uL Normal 4.5-11.5 The [facility] Comment on above: Performed By: #### C BC ####S PATHOLOGY [id number] [place], [place], Care Plan Noteon 12-12-2020 [employer] Authentication Interface Message Text Problem: Routine Care: [...] injury during hospitalization Outcome: Progressing Normal [facility] [employer] MAGNESIUMon 12-12-2020 Magnesium [Mass/Vol] 2.1 mg/dL Normal 1.6-2.8 [facility] [employer] [facility] Comment on above: Performed By: #### C BC #### [facility] [address] [place] [address], [phone] Progress Noteson 12-12-2020 [employer] Authentication Interface Message Text Attestation signed by [...] the team. Doing well. Diet as tolerated. Castaneda out. Aditya Gonzalez MD Colorectal Surgery GREEN SURGERY PROGRESS NOTE Interval history/Events: ??? NAEON ??? Pain adequately controlled. States the abdominal binder has helped with her pain. ??? Denies N/V, tolerating CLD well ??? - flatus, - BMs, though states she has felt grumbling in her abdomen ??? Voiding with Castaneda ??? Ambulating ??? Using IS Objective: Tmax [...] 75 mL/hr at 12/12/20 0937 Assessment: Ms. Ibrahim is a 55yo female who is POD#3 s/p???laparoscopic converted to open sigmoidectomy, CASIMIRO, and cystoscopy with b/l ureteral stent placement. Patient recovering as expected.??? Plan: Feeding: GI soft diet Analgesia: DC dilaudid TAX STAFF ACCOUNTANT. PO oxycodone 5/10, Dilaudid for breakthrough. Flexeril, gabapentin for multimodal control. Volume: IVF at 75 ml/hr OT/PT: Continue working with PT/OT Respiratory: Incentive Spirometry x 10 hour Embolic Prophylaxis: OOB and ambulation, Lovenox and SCDs Tubes AND Drains: continue KAMI drain Heart: Monitor vital signs Dispo: Continue on RNF Patient was seen with chief resident Dr. Slater and d/w Attending Surgeon Dr. Gonzalez. Angelique Kimbrough PA-C General Surgery Normal The [facility] BASIC METABOLIC PANELon 11-20 Anion gap [Moles/Vol] 10 mmol/L Normal 5-13 The [facility] Comment on above: Performed By: #### C BC #### S [facility]OLOGY LABORATORY [address] [place] [address], Calcium [Mass/Vol] 8.3 mg/dL Low 8.4-10.4 The [facility] Comment on above: Performed By: #### C BC #### [facility] [address] [place] [address], Chloride [Moles/Vol] 104 mmol/L Normal 97-111 The [facility] Comment on above: Performed By: #### C BC #### [facility] [address] [place] [address], CO2 [Moles/Vol] 26 mmol/L Normal 21-30 The [facility] Comment on above: Performed By: #### C BC #### S PATHOLOGY LABORATORY [address] [place] [address], Creatinine [Mass/Vol] 1.24 mg/dL High 0.50-1.10 The [facility] Comment on above: Performed By: #### C BC #### S [facility]OLOGY LABORATORY [address] [place] [address], ESTIMATED GFR (CKD-EPI) 49 mL/min/1.73sqm Low >=60 [facility] Comment on above: Performed By: #### C BC #### [facility] [address] [place], [place], Glucose [Mass/Vol] 109 mg/dL Normal 68-110 The [facility] Comment on above: Performed By: #### C BC #### [facility] [address], [place], Potassium [Moles/Vol] 4.3 mmol/L Normal 3.3-5.3 [facility] Comment on above: Performed By: #### C BC #### [facility] [address] [place], [place], Sodium [Moles/Vol] 136 mmol/L Normal 135-148 The [facility] Comment on above: Performed By: #### C BC #### [facility] [address] [place] [address], Urea nitrogen [Mass/Vol] 16 mg/dL Normal 8-22 [facility] Comment on above: Performed By: #### C BC #### [facility] [address] [place] [address], COMPLETE BLOOD COUNTon 12-11 Erythrocyte distribution width (RBC) [Ratio] 13.7 % Normal 11.5-14.5 [facility] Comment on above: Performed By: #### P T, APTT #### [facility] [address] [place] [address], Hematocrit (Bld) [Volume fraction] 29.8 % Low 36.0-46.0 [facility] Comment on above: Performed By: #### P T, APTT #### [facility] [address] [place] [address], Hemoglobin (Bld) [Mass/Vol] 10.4 g/dL Low 12.0-15.0 [facility] Comment on above: Performed By: #### P T, APTT #### [facility] [address] [place] [address], MCH (RBC) [Entitic mass] 31.2 pg Normal 26.0-34.0 [facility] Comment on above: Performed By: #### P T, APTT #### [facility] [address] [place] [address], MCHC (RBC) [Mass/Vol] 34.9 g/dL Normal 32.0-35.9 [facility] Comment on above: Performed By: #### P T, APTT #### [facility] [address] [place] [address], MCV (RBC) [Entitic vol] 89 fL Normal 80-100 [facility] Comment on above: Performed By: #### P T, APTT #### [facility] [address] [place], [place], Platelet mean volume (Bld) [Entitic vol] 7.8 fL Normal 7.5-11.2 [facility] Comment on above: Performed By: #### P T, APTT #### [facility] [address] [place], [place], Platelets (Bld) [#/Vol] 242 10*3/uL Normal 150-400 [facility] Comment on above: Performed By: #### P T, APTT #### [facility] [address] [place], [place], RBC (Bld) [#/Vol] 3.34 10*6/uL Low 4.00-5.20 [facility] Comment on above: Performed By: #### P T, APTT #### [facility] [address], [place], WBC (Bld) [#/Vol] 9.8 10*3/uL Normal 4.5-11.5 The [facility] Comment on above: Performed By: #### P T, APTT #### [facility] [address] [place], [place], Care Plan Noteon 12-11-2020 [employer] Authentication Interface Message Text Problem: Routine Care: [...] injury during hospitalization Outcome: Progressing Normal [facility] [employer] MAGNESIUMon 12-11-2020 Magnesium [Mass/Vol] 1.8 mg/dL Normal 1.6-2.8 [facility] [employer] [facility] Comment on above: Performed By: #### C BC #### [facility] [address] [place] [address], [phone] Progress Noteson 12-11-2020 [employer] Authentication Interface Message Text Attestation signed by [...] ??? NAEON ??? Pain adequately controlled on TAX STAFF ACCOUNTANT ??? Denies N/V ??? Tolerating PO GI soft diet ??? - flatus, - BMs, notes frequent belching ??? Voiding with castaneda ??? Ambulating independently ??? Using IS Objective: [...] * .NO ORAL PAIN MEDS WHILE ON TAX STAFF ACCOUNTANT/EPIDURAL 1 Each PRN IV * HYDROmorphone Assessment: Ms. Ibrahim is a 55yo female who is POD#2 s/p laparoscopic converted to open sigmoidectomy, CASIMIRO, and cystoscopy with b/l ureteral stent placement. Patient recovering as expected. ??? Plan: Neuro/Pain: Pain control with Tylenol and Dilaudid TAX STAFF ACCOUNTANT. Multimodal pain control with lidocaine patches, gabapentin and flexeril. CV: Monitor vital signs Pulm: Encourage IS x10/hr, OOB and ambulation : Maintain castaneda catheter with close monitoring for blockage; flush [...] Laina Bahena PA-C General Surgery Green pager #[phone] Normal [facility] [employer] Addendum Noteon 12-10-2020 [employer] Furn[employer] Operator Authentication Interface Message Text Addendum created 12/10/20 1008 by Evon Armas MD Clinical Note Signed Normal [facility] [employer] Anesthesia Postprocedure Angelina luationon 12-10-2020 [employer] Operator Authentication Interface Message Text Anesthesia Postoperative Assessment: [...] ANESTHESIA COMPLICATIONS: No complications documented. Normal [facility] BASIC METABOLIC PANELon 09-2 -2020 Anion gap [Moles/Vol] 16 mmol/L High 5-13 The [facility] Comment on above: Performed By: #### P T, APTT #### [facility] [address] [place] [address], Calcium [Mass/Vol] 8.4 mg/dL Normal 8.4-10.4 The [facility] Comment on above: Performed By: #### P T, APTT #### [facility] [address] [place] [address], Chloride [Moles/Vol] 109 mmol/L Normal 97-111 The [facility] Comment on above: Performed By: #### P T, APTT #### [facility] [address] [place] [address], CO2 [Moles/Vol] 17 mmol/L Low 21-30 The [facility] Comment on above: Performed By: #### P T, APTT #### [facility] [address] [place] [address], Creatinine [Mass/Vol] 0.90 mg/dL Normal 0.50-1.10 The [facility] Comment on above: Performed By: #### P T, APTT #### S PATHOLOGY LABORATORY [address] [place] [address], ESTIMATED GFR (CKD-EPI) 72 mL/min/1.73sqm Normal >=60 The [facility] Comment on above: Performed By: #### P T, APTT #### [facility] [address] [place] [address], Glucose [Mass/Vol] 135 mg/dL High 68-110 The [facility] Comment on above: Performed By: #### P T, APTT #### [facility] [address] [place] [address], Potassium [Moles/Vol] 5.0 mmol/L Normal 3.3-5.3 The [facility] Comment on above: Performed By: #### P T, APTT #### [facility] [address] [place] [address], Sodium [Moles/Vol] 137 mmol/L Normal 135-148 The [facility] Comment on above: Performed By: #### P T, APTT #### S [facility] [address] [place] [address], Urea nitrogen [Mass/Vol] 15 mg/dL Normal 8-22 The [facility] Comment on above: Performed By: #### P T, APTT #### [facility] [address] [place] [address], COMPLETE BLOOD COUNTon 12-10 Erythrocyte distribution width (RBC) [Ratio] 13.8 % Normal 11.5-14.5 The [facility] Comment on above: Performed By: #### C BC #### [facility] [address] [place] [address], Hematocrit (Bld) [Volume fraction] 34.8 % Low 36.0-46.0 The [facility] Comment on above: Performed By: #### C BC #### [facility] [address] [place] [address], Hemoglobin (Bld) [Mass/Vol] 11.4 g/dL Low 12.0-15.0 The [facility] Comment on above: Performed By: #### C BC #### [facility] [address] [place] [address], MCH (RBC) [Entitic mass] 29.6 pg Normal 26.0-34.0 The [facility] Comment on above: Performed By: #### C BC #### [facility] [address] [place] [address], MCHC (RBC) [Mass/Vol] 32.6 g/dL Normal 32.0-35.9 The [facility] Comment on above: Performed By: #### C BC #### S [facility] LABORATORY [address] [place] [address], MCV (RBC) [Entitic vol] 91 fL Normal 80-100 The [facility] Comment on above: Performed By: #### C BC #### S PATHOLOGY LABORATORY [address], [place], Platelet mean volume (Bld) [Entitic vol] 7.8 fL Normal 7.5-11.2 [facility] Comment on above: Performed By: #### C BC #### S [facility] [address], [place], Platelets (Bld) [#/Vol] 285 10*3/uL Normal 150-400 [facility] Comment on above: Performed By: #### C BC #### [facility] [address], [place], RBC (Bld) [#/Vol] 3.84 10*6/uL Low 4.00-5.20 The [employer] [facility] Comment on above: Performed By: #### C BC #### S [facility] [address], [place], WBC (Bld) [#/Vol] 11.6 10*3/uL High 4.5-11.5 [facility] Comment on above: Performed By: #### C BC #### [facility] [address], [place], Care Plan Noteon 12-10-2020 [employer] Operator Authentication Interface Message Text Problem: Routine Care: Goal: Patient care will be managed and maintained throughout hospital stay per unit specific routine care procedure 12/09/20202315 by Haley Gordillo RN Outcome: Progressing 12/09/20202218 by Haley Gordillo RN Outcome: Progressing Problem: Altered Elimination: Goal: Establishment of normal bowel function will be achieved and maintained 12/09/20202315 by Haley Gordillo RN [...] Progressing Goal: Establishment of individualized urinary routine 12/09/2020 2316 by Haley Gordillo RN Outcome: Progressing 12/09/20202218 by Haley Gordillo RN Outcome: Progressing Normal [facility] [employer]earth Furnace Operator Authentication Interface Message Text Problem: Routine Care: [...] will be achieved Outcome: Progressing Normal [facility] [employer] MAGNESIUMon 12-10-2020 Magnesium [Mass/Vol] 1.8 mg/dL Normal 1.6-2.8 The [employer] Comment on above: Performed By: #### C H8, MG ####[facility] [id number] [place] [address], [phone] Progress Noteson 12-10-2020 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 Pt states that primary team informed her that drain should be removed prior to discharge. PT/OT reports no needs. CM will continue to follow pt needs as warranted. Colleen ANDERSONN,crozer [phone] Normal The [employer] Interface Message Text Attestation signed by Jhonatan [...] ??? Pain adequately controlled on current regimen (TAX STAFF ACCOUNTANT) ??? Denies N/V ??? Tolerating PO clear liquids however has only taken in 120cc ??? - flatus, - BMs ??? Voiding with castaneda ??? Ambulating minimally ??? Using IS Objective: [...] drain SS output. Gu: Hematuria present in castaneda Ext: Warm and well perfused, no edema, [...] * .NO ORAL PAIN MEDS WHILE ON TAX STAFF ACCOUNTANT/EPIDURAL 1 Each PRN IV * HYDROmorphone Assessment: Ms. Ibrahim is a 55yo female who is POD#1 s/p laparoscopic converted to open sigmoidectomy, CASIMIRO, and cystoscopy with b/l ureteral stent placement. Patient recovering as expected. Plan: Neuro/Pain: Pain control with Tylenol and Dilaudid TAX STAFF ACCOUNTANT CV: Monitor vital signs Pulm: Encourage IS x10/hr, OOB and ambulation : Maintain castaneda catheter with close monitoring for blockage; flush PRN Endocrine: Replete electrolytes, daily labs ID: No abx indicated FEN: IVF LR @ 100ml/hr, advance to GI soft diet Tubes/lines/drains: Continue KAMI drain and monitor output Proph: Lovenox and SCDs Dispo: Continue on RNF Patient was seen with Dr. Slater and d/w Attending Surgeon Dr. Gonzalez. 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 Pt has tolerated sip clears without nausea and vomiting. Pain is 'fair'. Denies CP and SOB. Denies OOB, flatus/BM. Castaneda still in place with hematuria O: Vitals [...] 10 Intake/Output Summary (Last 24 hours) at 12/09/20209 Last data filed at 12/09/2020 2113 Gross per 24 hour Intake 2020 ml Output 595 ml Net 1425 ml [...] Encourage OOB and IS use - Flush castaneda PRN to prevent blockage Jenny Landers MD General Surgery, PGY1 [place] [facility] [phone] Normal [facility] [employer] Anesthesia Attestationon [employer] Operator Authentication Interface Message Text Anesthesia Attestation ATTESTATION OF INFORMED CONSENT FOR ANESTHESIA Anesthesia options were discussed with the patient and/or legal international sales representative. The risks, benefits and alternatives were reviewed. Questions regarding anesthesia were answered. Patient and/or legal international sales representative knows such anesthetics and procedures may be performed by Resident physicians, Certified Anesthesiologist Assistants, or Certified Nurse Anesthetists under the supervision of a physician. The patient /or the patient's legal international sales representative agree with the plan for anesthesia. R/b dw pt including risk of v,a, n injury/loss of hand/infx due to rosmery. Understands at higher risk and wishes to proceed. Normal [facility] [employer] Anesthesia Postprocedure Angelina luationon 12-09-2020 [employer] Furn[employer] Operator Authentication Interface Message Text Anesthesia Postoperative Assessment: [...] ANESTHESIA COMPLICATIONS: No complications documented. Normal [facility] [employer] [facility] Anesthesia Preprocedure Eval uationon 12-09-2020 [employer] Furn[employer] Operator Authentication Interface Message Text ASA: 3 PSE status: Had PSE NPO status: >8 hours Review of Systems (Full ROS completed in PSE) Pulmonary (+) a smoker Comment: Poss russel Dental ROS (+) upper and lower dentures, Endo (+) hypothyroidism, obesity lei maker (+) post-menopausal, Neuro/Psych Cardiovascular (+) hypertension, Surgical [...] the history and physical examination. Normal [facility] [employer] Anesthesia Transfer Of Careo n 12-09-2020 [employer]earth Furnace Operator Authentication Interface Message Text Patient taken to [...] CAA; Neema Pike CAA; Robert Moore CAA Divider Operator: Noah Anderson MD LAPAROSCOPIC CONVERTED TO OPEN [...] at Discharge: Removed 12/09/20 1728 Location (cm) 12/09/20 131 Measured from: Lips 12/09/20 1315 Secured via: Taped 12/09/201314 Site Assessment WNL 12/09/20 131 All non-working IVs have been removed: Yes [...] report was received. WILLIAMS Renae Normal [facility] [employer] Blood Attestationon 12-10-19 [employer]earth Furn[employer] Operator Authentication Interface Message Text Blood Attestation ATTESTATION OF INFORMED CONSENT FOR BLOOD The transfusion of blood and/or blood components were discussed with the patient and/or legal international sales representative. The risks, benefits and alternatives were reviewed. Questions regarding blood transfusions were answered. The patient /or the patient's legal international sales representative agree with the plan for transfusion of blood and/or blood components. Normal [facility] Brief Operative Noteon 12-09 Open [employer]earth Furnace Operator Authentication Interface Message Text Brief Operative Note MAIN OR 15 Angelica Ibrahim 55 year old female Surgical Contact Serial Number: [id number] Preoperative Diagnosis: Diverticulitis of large intestine with [...] MD Nguyen, Carvell, MD Staff: Scrub: Khadra Marrero, CHRIS; Diogo Villagomez, CHRIS; Soco Kerns, CHRIS Marksmanship Instructor Nurse: Siobhan Bourgeois RN; Angelica Woodruff RN Roundsman: Michelle Saul MD; Megan Marquez MD Anesthesia: General Anesthesiologist: Jose Guadalupe Feltcher MD; Priscila Toure MD; Dilcia Louis MD CAA: Andressa Nugent CAA; Neema Pike CAA Divider Operator: Noah Anderson MD Specimen(s): ID Type Source Tests Collected by Time Destination 1 : Sigmoid Colon Tissue Colon SPECIMEN FOR SURGICAL PATH Jhonatan Gonzalez MD 12/09/2020 3355 Estimated Blood Loss: 150 Lines/Drains: Peripheral IV [...] Gonzalez MD 12/09/2020 4:57 PM Normal [facility] [employer] OP Noteon 12-09-2020 [employer] Furn[employer] Operator Authentication Interface Message Text DATE: 12/09/20 PATIENT NAME: Angelica Ibrahim : 1965 PREOPERATIVE DIAGNOSIS: Smoldering diverticulitis POSTOPERATIVE DIAGNOSIS: Same PROCEDURES: 1) Laparoscopic converted to open sigmoid colectomy 2) Laparoscopic splenic flexure mobilization 3) Laparoscopic lysis of adhesions 45 minutes 4) Rigid proctoscopy 5) Cystoscopy and bilateral ureteral stent placement (Dr. Wall - Urology) SURGEON: Jhonatan Gonzalez MD CO-SURGEON: Benigno Wall MD (Urology) SHAREMILKER SURGEON: Megan Marquez MD (General Surgery Resident) [...] and placement of bilateral ureteral stents and castaneda catheter (see separate dictation). Once urology was [...] transverse colon were mobilized using a top-down [id number] technique with the Ligasure. The lateral attachments [...] rec (more content not included)... Normal [facility] [employer] Open Hearth Furnace Operator Authentication Interface Message Text Division of Urology Operative Note Angelica Ibrahim 12/09/20 [id number] 55 year old Surgeon: Benigno Wall. PhD [...] were connected to a slade device. A castaneda catheter was placed and connected to a drainage bag along with the ureteral stents. The patient was then returned to [facility] for the remainder of their procedure. Estimated Blood Loss: none Fluids: see anesthesia report Drains: 16 fr castaneda catheter B/l 5 fr ureteral stents Specimens: none Complications: None Disposition: To recovery room in stable condition. Surgical wound class: II Patient Class: Surgery Admit. Is this a patient scheduled as an outpatient that needs to be admitted as an inpatient? No Normal The [facility] RED BLOOD CELL COMPONENTon 0 12-09-2020 BB ORDER ITEM Product status info to follow Normal The [facility] Comment on above: Performed By: #### P T, APTT #### S PATHOLOGY LABORATORY [address] [place] [address], RED BLOOD CELL UNIT STATUSon 12-09-2020 BLOOD PRODUCT CODE [id number] Normal The [facility] Comment on above: Performed By: #### R BU #### S PATHOLOGY LABORATORY [address] [place] [address], Performed By: #### C BC #### S [facility] [address] [place] [address], BLOOD PRODUCT DESCRIPTION Red Blood Cells Normal The [facility] Comment on above: Performed By: #### R BU #### S [facility] LAB[facility] [address] [place] [address], Performed By: #### C BC #### S [facility] [address] [place] [address], BLOOD PRODUCT STATUS Returned to Bld Bnk Normal The [facility] Comment on above: Performed By: #### R BU #### S [facility] LAB[facility]ORY [address] [place] [address], Performed By: #### C BC #### S [facility] [address] [place] [address], BLOOD PRODUCT UNIT INFO [id number] Normal The [facility] Comment on above: Performed By: #### R BU #### [facility] [address] [place] [address], BLOOD PRODUCT UNIT INFO [id number] Normal The [facility] Comment on above: Performed By: #### C BC #### [facility] [address] [place] [address], BLOOD PRODUCT UNIT TYPE 5100 Normal The [facility] Comment on above: Result Comment: O Po s Performed By: #### R BU #### [facility] [address] [place] [address], Performed By: #### C BC #### [facility] [address] [place] [address], CROSSMATCH INTERPRETATION Compatible (E) Normal The [facility] Comment on above: Performed By: #### R BU #### [facility] [address] [place] [address], Performed By: #### C BC #### [facility] [address] [place] [address], TYPE AND SCREENon 12-09-2020 ABO and Rh group Nom (Bld) Blood group O Rh(D) positive Normal The [facility] Comment on above: Performed By: #### C BC #### [facility] [address] [place] [address], ABSC INT Negative Normal The [facility] Comment on above: Performed By: #### C BC #### [facility] [address] [place] [address], BASIC METABOLIC PANELon 11-19 Anion gap [Moles/Vol] 19 mmol/L High 5-13 The [facility] Comment on above: Performed By: #### C BC #### S PATHOLOGY LAB[facility]ATORY [address] [place] [address], Calcium [Mass/Vol] 9.7 mg/dL Normal 8.4-10.4 The [facility] Comment on above: Performed By: #### C BC #### [facility] [address] [place] [address], Chloride [Moles/Vol] 102 mmol/L Normal 97-111 The [facility] Comment on above: Performed By: #### C BC #### [facility] [address] [place] [address], CO2 [Moles/Vol] 25 mmol/L Normal 21-30 The [facility] Comment on above: Performed By: #### C BC #### [facility] [address] [place] [address], Creatinine [Mass/Vol] 0.72 mg/dL Normal 0.50-1.10 The [facility] Comment on above: Performed By: #### C BC #### [facility] [address] [place] [address], ESTIMATED GFR (CKD-EPI) 94 mL/min/1.73sqm Normal >=60 The [facility] Comment on above: Performed By: #### C BC #### [facility] [address] [place] [address], Glucose [Mass/Vol] 87 mg/dL Normal 68-110 The [facility] Comment on above: Performed By: #### C BC #### S [facility] LAB[facility] [address] [place] [address], Potassium [Moles/Vol] 4.6 mmol/L Normal 3.3-5.3 The [facility] Comment on above: Performed By: #### C BC #### [facility] [address] [place] [address], Sodium [Moles/Vol] 141 mmol/L Normal 135-148 The [facility] Comment on above: Performed By: #### C BC #### [facility] [address], [place], Urea nitrogen [Mass/Vol] 11 mg/dL Normal 8-22 The [facility] Comment on above: Performed By: #### C BC #### [facility] [address], [place], CBC WITH DIFFERENTIALon 11-19 Basophils (Bld) [#/Vol] 0.09 10*3/uL Normal 0.00-0.20 The [facility] Comment on above: Performed By: #### C BCDSAT ####[facility] [id number] [place], [place], Basophils/100 WBC (Bld) 0.9 % Normal <=1.9 The [facility] Comment on above: Performed By: #### C BCDSAT ####[facility] [id number] [place], [place], Eosinophils (Bld) [#/Vol] 0.12 10*3/uL Normal 0.00-0.70 The [facility] Comment on above: Performed By: #### C BCDSAT ####[facility] [id number] [place], [place], Eosinophils/100 WBC (Bld) 1.3 % Normal 0.1-4.0 [facility] Comment on above: Performed By: #### C BCDSAT ####[facility] [id number] [place], [place], Erythrocyte distribution width (RBC) [Ratio] 14.1 % Normal 11.5-14.5 The [facility] Comment on above: Performed By: #### C BCDSAT ####[facility] [id number] [place], [place], Hematocrit (Bld) [Volume fraction] 38.4 % Normal 36.0-46.0 The [facility] Comment on above: Performed By: #### C BCDSAT ####[facility] [id number] [place], [place], Hemoglobin (Bld) [Mass/Vol] 12.9 g/dL Normal 12.0-15.0 [facility] Comment on above: Performed By: #### C BCDSAT ####[facility] [id number] [place], [place], Lymphocytes (Bld) [#/Vol] 1.82 10*3/uL Normal 1.00-4.80 The [facility] Comment on above: Performed By: #### C BCDSAT ####[facility] [id number] [place] [address], Lymphocytes/100 WBC (Bld) 18.9 % Low 24.0-44.0 The [facility] Comment on above: Performed By: #### C JAMAALDSAT ####[facility] [id number] [place] [address], MCH (RBC) [Entitic mass] 29.9 pg Normal 26.0-34.0 [facility] Comment on above: Performed By: #### Brian GONZALEZAT ####[facility] [id number] [place] [address], MCHC (RBC) [Mass/Vol] 33.6 g/dL Normal 32.0-35.9 [facility] Comment on above: Performed By: #### Brian GONZALEZAT ####[facility] [id number] [place] [address], MCV (RBC) [Entitic vol] 89 fL Normal 80-100 The [facility] Comment on above: Performed By: #### Brian HINTONDSAT ####[facility] [id number] [place] [address], MONOCYTE DISTRIBUTION WIDTH Normal The [facility] Comment on above: Performed By: #### C BCDSAT ####[facility] [id number] [place], [place], Monocytes (Bld) [#/Vol] 0.60 10*3/uL Normal 0.20-1.00 The [facility] Comment on above: Performed By: #### Brian BCLIANAAT ####[facility] [id number] [place] [address], Monocytes/100 WBC (Bld) 6.3 % Normal 2.0-11.0 [facility] Comment on above: Performed By: #### C BCDSAT ####[facility] [id number] [place], [place], Neutrophils (Bld) [#/Vol] 6.98 10*3/uL Normal 1.50-8.00 [facility] Comment on above: Performed By: #### Brian GONZALEZAT ####[facility] [id number] [place], [place], Neutrophils/100 WBC (Bld) 72.6 % Normal 31.0-76.0 [facility] Comment on above: Performed By: #### Brian GONZALEZAT ####[facility] [id number] [place], [place], Platelet mean volume (Bld) [Entitic vol] 7.7 fL Normal 7.5-11.2 [facility] Comment on above: Performed By: #### Brian GONZALEZAT ####[facility] [id number] [place], [place], Platelets (Bld) [#/Vol] 397 10*3/uL Normal 150-400 [facility] Comment on above: Performed By: #### Brian GONZALEZAT ####S PATHOLOGY [id number] [place], [place], RBC (Bld) [#/Vol] 4.32 10*6/uL Normal 4.00-5.20 The [facility] Comment on above: Performed By: #### Brian GONZALEZAT ####S PATHOLOGY [id number] [place], [place], WBC (Bld) [#/Vol] 9.6 10*3/uL Normal 4.5-11.5 The [facility] Comment on above: Performed By: #### Brian GONZALEZAT ####[facility] [id number] [place], [place], PSE Call H AND [place] [employer]earth Furnace Operator Authentication Interface Message Text Telephone History Angelica Ibrahim, [id number] 12/03/2020 Patient was identified by name and date of . Phone PSE completed - pt with recent hospitalization, lives in [place]. COVID VACCINE: Mowbly SARS-COV-2 (COVID-19) vaccine, mRNA, spike protein, LNP, preservative free, 30 mcg/0.3mL dose (BGR=148) 07/21/2020 , 06/30/2020 55 year old 5'3 230 lbs Date of Surgery: 12/09 Surgeon: Bruce Type of Surgery: LAPAROSCOPY, SIGMOID OR LEFT HEMICOLECTOMY HISTORY OF PRESENT ILLNESS: telephone history prior to the upcoming surgery at [facility]. Please enter through the emergency department entrance [...] perforation and abscess. Pt was admitted to [facility], made NPO, started on IV Zosyn, [...] Row Name Nurse Visit from 12/03/2020 in [facility] Pre Surgical Evaluation History of sleep [...] up to 5 values) PT aPTT INR 11/20/20 0228 28 11/20/20 0228 1.49 No results found [...] Determi (more content not included)... Normal The [employer] [facility] Patient Instructionson 12-03 Open Hearth Furnace Operator Authentication Interface Message Text Surgery Date: 12/09/20 [...] near a toilet B. Apply Vaseline or [place] to the skin around your anus to [...] o Clear broth any flavor Beef, Chicken, [place], Vegetable o Coffee and tea (no cream) [...] Questions or Concerns after hours. PLEASE call [phone].Ask for General Surgery surgeon sql application developer Normal The [employer] Progress Noteson 12-03-2020 [employer] Furn[employer] Operator Authentication Interface Message Text WO DATABASE MANAGER Follow up Visit Patient identified by name [...] not functionally possible. Patient education: Patient given [employer] Start information booklet and sample pouches to take home. Impression: 55 yo female marked for ostomy. Plan: inpatient WOCNs to follow Monica Baca, CARE MANAGEMENT ASSOCIATE- DYNAMITE SHOOTER, CWOCN Normal [facility] TYPE AND SCREENon 12-03-2020 ABO and Rh group Nom (Bld) Blood group O Rh(D) positive Normal [facility] Comment on above: Performed By: #### P T, APTT #### [facility] [address], [place], ABO and Rh group Nom (Bld) No Previous Results Normal The [employer] [facility] Comment on above: Performed By: #### P T, APTT #### [facility] [address], [place], ABSC INT Negative Normal The [employer] [facility] Comment on above: Performed By: #### P T, APTT #### [facility] [address], [place], Telephone Encounteron 2020 [employer] Operator Authentication Interface Message Text Received page from [place] Monahan RN stating pt called with question about receiving messages and calls from [employer]. RN informed pt that [employer] is her [employer] so these messages were regarding wound care [...] other questions at this time. Normal [facility] [employer] Open Hearth Furnace Operator Authentication Interface Message Text Situation: Pt states she is getting messages from [employer] and she does not know why they are calling her Background: Pt was discharged with DME orders for wound care supplies Assessment: N/A Recommendation: Pt advised that [employer] is her DME company All questions answered [...] the patient at this time Normal [facility] [employer] [facility] Telephone Encounteron 2020 [employer]earth Furn[employer] Operator Authentication Interface Message Text Pt called stating her sodium chloride flushes ordered today are not available at her preferred pharmacy. Pt requested rx be transferred to alternate pharmacy. Advice RN spoke w/ Filiberto Bartholomew. Verbal given. [facility] states she will fill for pt today. Advice RN called pt to update her on above. Pt verbalized understanding. Normal [facility] [employer] Telephone Encounteron 2020 [employer]earth Furn[employer] Operator Authentication Interface Message Text Situation: Pt calling [...] at [address] in [facility] Surgery. Pt lives in [facility] near [place] so needs to make transportation arrangements. Assessment: Gave pt pharmacy # [phone] to call Tu morning about NS Rx. Instructed pt to call surgery Tues AM to schedule 11/26 appt. Recommendation: Nurse also sending refill request for NS flushes since pt received a handful not the 90 that was ordered. [id number] [place], [place] - [address] [facility]? Normal The [employer] Open Hearth Furnace Operator Authentication Interface Message Text Patient calling; three identifiers verified. Situation: Appointment clarification. Background: Patient states she has a scheduled 12/03/20 Dr. Cardona appointment, but Dr. Cardona advised her this morning it is on 11/26/20. States she lives an hour [place] a half away and will need to arrange transportation if it's on 11/26/20. Per [facility] the appointment is scheduled on 12/03/20. Assessment: Patient asking Dr. Cardona to clarify what date she wants to see her, and if it's something like a wound check that I can see my family doctor where I live, I'd rather do that. Recommendation: Patient can be reached at [phone]. In order to prevent delays in care, please forward this message to your clinic nurse pool for any required follow up. Thank you. Normal [facility] [employer] Open Hearth Furnace Operator Authentication Interface Message Text I spoke to Ms. Ibrahim this morning. She is taking Augmentin BID. I told her her not to take the cipro/flagyl she has from her regular doctor. She is going to follow up on 11/26/2020 at [place]. Yudy Cardona MD Normal [facility] [employer] [facility] Telephone Encounteron 2020 [employer] Furn[employer] Operator Authentication Interface Message Text Situation: Pt calling [...] be seen sooner than 12/03. Normal [facility] BASIC METABOLIC PANELon 09-0 -2020 Anion gap [Moles/Vol] 12 mmol/L Normal 5-13 [facility] Comment on above: Performed By: #### P T, APTT #### [facility] [address] [place] [address], Calcium [Mass/Vol] 8.0 mg/dL Low 8.4-10.4 The [facility] Comment on above: Performed By: #### P T, APTT #### [facility] [address] [place] [address], Chloride [Moles/Vol] 106 mmol/L Normal 97-111 The [facility] Comment on above: Performed By: #### P T, APTT #### [facility] [address] [place] [address], CO2 [Moles/Vol] 23 mmol/L Normal 21-30 The [facility] Comment on above: Performed By: #### P T, APTT #### [facility] [address] [place] [address], Creatinine [Mass/Vol] 1.00 mg/dL Normal 0.50-1.10 The [facility] Comment on above: Performed By: #### P T, APTT #### [facility] [address] [place] [address], ESTIMATED GFR (CKD-EPI) 63 mL/min/1.73sqm Normal >=60 The [facility] Comment on above: Performed By: #### P T, APTT #### [facility] [address] [place] [address], Glucose [Mass/Vol] 89 mg/dL Normal 68-110 The [facility] Comment on above: Performed By: #### P T, APTT #### [facility] [address] [place] [address], Potassium [Moles/Vol] 3.7 mmol/L Normal 3.3-5.3 The [facility] Comment on above: Performed By: #### P T, APTT #### [facility] [address] [place] [address], Sodium [Moles/Vol] 137 mmol/L Normal 135-148 The [facility] Comment on above: Performed By: #### P T, APTT #### [facility] [address] [place] [address], Urea nitrogen [Mass/Vol] 11 mg/dL Normal 8-22 The [facility] Comment on above: Performed By: #### P T, APTT #### [facility] [address] [place] [address], COMPLETE BLOOD COUNTon 11-21 Erythrocyte distribution width (RBC) [Ratio] 13.3 % Normal 11.5-14.5 The [facility] Comment on above: Performed By: #### P T, APTT #### [facility] [address] [place] [address], Hematocrit (Bld) [Volume fraction] 30.9 % Low 36.0-46.0 The [facility] Comment on above: Performed By: #### P T, APTT #### [facility] [address] [place] [address], Hemoglobin (Bld) [Mass/Vol] 10.7 g/dL Low 12.0-15.0 The [facility] Comment on above: Performed By: #### P T, APTT #### [facility] [address] [place] [address], MCH (RBC) [Entitic mass] 30.7 pg Normal 26.0-34.0 The [facility] Comment on above: Performed By: #### P T, APTT #### [facility] [address] [place] [address], MCHC (RBC) [Mass/Vol] 34.4 g/dL Normal 32.0-35.9 [facility] Comment on above: Performed By: #### P T, APTT #### [facility] [address] [place] [address], MCV (RBC) [Entitic vol] 89 fL Normal 80-100 [facility] Comment on above: Performed By: #### P T, APTT #### [facility] [address] [place] [address], Platelet mean volume (Bld) [Entitic vol] 8.0 fL Normal 7.5-11.2 [facility] Comment on above: Performed By: #### P T, APTT #### [facility] [address] [place] [address], Platelets (Bld) [#/Vol] 254 10*3/uL Normal 150-400 [facility] Comment on above: Performed By: #### P T, APTT #### [facility] [address] [place] [address], RBC (Bld) [#/Vol] 3.47 10*6/uL Low 4.00-5.20 The [facility] Comment on above: Performed By: #### P T, APTT #### [facility] [address] [place] [address], WBC (Bld) [#/Vol] 8.9 10*3/uL Normal 4.5-11.5 The [facility] Comment on above: Performed By: #### P T, APTT #### [facility] [address] [place] [address], Care Plan Noteon 11-21-2020 Open Hearth Furnace Operator Authentication Interface Message Text Problem: Routine Care: [...] patient will be met 11/21/2020 1724 by John Bailey RN Outcome: Adequate for Discharge 11/21/2020 1038 by John Bailey RN Outcome: Progressing IV removed, education given on drain to patient, and daughter. Meds delivered bedside, given supplies for drain flushing and dressing changes. Reviewed DC orders and meds, no questions at this time, Dcd home. Normal [facility] [employer] Open Hearth Furnace Operator Authentication Interface Message Text Problem: Routine Care: [...] says she may go home. Normal [facility] MAGNESIUMon 11-21-2020 Magnesium [Mass/Vol] 2.1 mg/dL Normal 1.6-2.8 The [facility] Comment on above: Performed By: #### P T, APTT #### [facility] [address] [place] [address], PHOSPHORUSon 11-21-2020 Phosphate [Mass/Vol] 3.6 mg/dL Normal 2.5-4.8 [facility] Comment on above: Performed By: #### P T, APTT #### [facility] [address] [place] [address], Progress Noteson 11-21-2020 [employer] Furn[employer] Operator Authentication Interface Message Text Attestation signed by Yudy Cardona MD at 11/25/2020 9:19 PM PA attestation: [...] Hct MCV RDW Plt PT aPTT INR 11/21/2030 8.9 3.47 10.7 30.9 89 13.3 254 11/20/208 28 11/20/20227 1.49 11/20/20227 11.9 3.38 10.3 30.0 89 13.1 244 11/19/202102 12.4 3.62 10.7 32.4 90 13.4 274 Basic Metabolic Panel Na K Cl CO2 Gap Glu BUN Cr Ca Mg PO4 11/21/2030 2.1 11/21/2030 3.6 11/21/2030 137 3.7 106 [...] 75 mL/hr at 11/20/20 1758 Assessment: Angelica Ibrahim is a 55 year old female who [...] and d/w Attending Surgeon Dr. Times. Angelique Kimbrough PA-C General Surgery Normal [facility] AEROBIC WOUND CULTUREon AEROBIC WOUND CULTURE C PYOG: No Growth GRAM STAIN: 4+ Polymorphonuclear Leukocytes No Squamous Epithelial Cells seen No organisms seen Normal [facility] Comment on above: Performed By: #### C PYOG ####[facility] [id number] [facility] [place], [id number] ANAEROBIC CULTURE, [facility] ANAEROBIC CULTURE, MISC C ANRBC: Positive Culture Report PREVOTELLA SPECIES Anaerobic culture yields Prevotella species BETA-LACTAMASE: Positive Normal The [facility] Comment on above: Performed By: #### C ANRBC ####[facility] [id number] [place], [place] BASIC METABOLIC PANELon 090 Anion gap [Moles/Vol] 14 mmol/L High 5-13 The [facility] Comment on above: Performed By: #### CHERYL Neal CH8 #### [facility] [address] [place] [address], Calcium [Mass/Vol] 8.0 mg/dL Low 8.4-10.4 The [facility] Comment on above: Performed By: #### CHERYL Neal CH8 #### [facility] [address] [place] [address], Chloride [Moles/Vol] 105 mmol/L Normal 97-111 The [facility] Comment on above: Performed By: #### CHERLY Neal CH8 #### [facility] [address] [place] [address], CO2 [Moles/Vol] 21 mmol/L Normal 21-30 The [facility] Comment on above: Performed By: #### CHERYL Neal CH8 #### [facility] [address] [place] [address], Creatinine [Mass/Vol] 1.29 mg/dL High 0.50-1.10 The [facility] Comment on above: Performed By: #### CHERYL Neal CH8 #### [facility] [address] [place] [address], ESTIMATED GFR (CKD-EPI) 46 mL/min/1.73sqm Low >=60 The [facility] Comment on above: Performed By: #### CHERYL Neal CH8 #### [facility] [address] [place] [address], Glucose [Mass/Vol] 96 mg/dL Normal 68-110 [facility] Comment on above: Performed By: #### CHERYL Neal, CH8 #### [facility] [address] [place] [address], Potassium [Moles/Vol] 3.3 mmol/L Normal 3.3-5.3 [facility] Comment on above: Performed By: #### CHERYL Neal, CH8 #### [facility] [address] [place] [address], Sodium [Moles/Vol] 137 mmol/L Normal 135-148 [facility] Comment on above: Performed By: #### CHERYL Neal, CH8 #### [facility] [address] [place] [address], Urea nitrogen [Mass/Vol] 18 mg/dL Normal 8-22 [facility] Comment on above: Performed By: #### CHERYL Neal, RADHA8 #### [facility] [address] [place] [address], COMPLETE BLOOD COUNTon 11-20 Erythrocyte distribution width (RBC) [Ratio] 13.1 % Normal 11.5-14.5 The [facility] Comment on above: Performed By: #### P T, APTT #### [facility] [address] [place] [address], Hematocrit (Bld) [Volume fraction] 30.0 % Low 36.0-46.0 The [facility] Comment on above: Performed By: #### P T, APTT #### [facility] [address] [place] [address], Hemoglobin (Bld) [Mass/Vol] 10.3 g/dL Low 12.0-15.0 The [facility] Comment on above: Performed By: #### P T, APTT #### [facility] [address] [place] [address], MCH (RBC) [Entitic mass] 30.5 pg Normal 26.0-34.0 The [facility] Comment on above: Performed By: #### P T, APTT #### [facility] [address] [place] [address], MCHC (RBC) [Mass/Vol] 34.4 g/dL Normal 32.0-35.9 [facility] Comment on above: Performed By: #### P T, APTT #### [facility] [address] [place] [address], MCV (RBC) [Entitic vol] 89 fL Normal 80-100 [facility] Comment on above: Performed By: #### P T, APTT #### [facility] [address] [place] [address], Platelet mean volume (Bld) [Entitic vol] 8.0 fL Normal 7.5-11.2 [facility] Comment on above: Performed By: #### P T, APTT #### [facility] [address] [place] [address], Platelets (Bld) [#/Vol] 244 10*3/uL Normal 150-400 [facility] Comment on above: Performed By: #### P T, APTT #### [facility] [address] [place] [address], RBC (Bld) [#/Vol] 3.38 10*6/uL Low 4.00-5.20 The [employer] [facility] Comment on above: Performed By: #### P T, APTT #### S [facility] [address] [place] [address], WBC (Bld) [#/Vol] 11.9 10*3/uL High 4.5-11.5 The [employer] [facility] Comment on above: Performed By: #### P T, APTT #### [facility] [address] [place] [address], Care Plan Noteon 11-20-2020 [employer] Operator Authentication Interface Message Text Problem: Routine Care: [...] discuss with MD during rounds Normal [facility] [employer] Furn[employer] Operator Authentication Interface Message Text Problem: Routine Care: [...] will be met Outcome: Progressing Normal [facility] [employer] H AND Cameron 11-20-2020 [employer] Furn[employer] Operator Authentication Interface Message Text See consult note from same day for full details. In brief: ASSESSMENT/RECOMMENDAT IONS: Angelica Ibrahim is a 55 year old female who presents with concern for perforated diverticulitis and pelvic abscess. ??? - admit to colorectal surgery, Times - abx: zosyn - NPO after midnight, IVF LR@75/hr - ok to drink until midnight tonight - coags ordered for AM - lovenox 40 mg - will plan for IR evaluation in AM ??? Normal [facility] [employer] MAGNESIUMon 11-20-2020 Magnesium [Mass/Vol] 2.1 mg/dL Normal 1.6-2.8 [facility] [employer] [facility] Comment on above: Performed By: #### M G, PHOS, CH8 #### [facility] [address] [place] [address], PARTIAL THROMBOPLASTIN TIMEo n 11-20-2020 aPTT Coag (Bld) [Time] 28 s Normal 25-37 [facility] [employer] [facility] Comment on above: Performed By: #### P T, APTT #### [facility] [address], [place], PHOSPHORUSon 11-20-2020 Phosphate [Mass/Vol] 4.0 mg/dL Normal 2.5-4.8 [facility] [employer] [facility] Comment on above: Performed By: #### M CHERYL Parada CH8 #### [facility] [address] [place] [address], PROTHROMBIN TIME AND INRon 0 11-20-2020 INR Coag (PPP) [Relative time] 1.49 {INR} High 0.90-1.10 [facility] [employer] [facility] Comment on above: Performed By: #### P T, APTT #### [facility] [address], [place], PT Coag (PPP) [Time] 16.8 s High 9.7-12.9 [facility] [employer] [facility] Comment on above: Performed By: #### P T, APTT #### [facility] [address], [place], Progress Noteson 11-20-2020 [employer] Operator Authentication Interface Message Text Attestation signed by Yudy Cardona MD at 11/25/2020 9:18 PM Cosign note [...] last night. ??? States her pain is /10 currently ??? Denies N/V ??? Remains NPO [...] Hct MCV RDW Plt PT aPTT INR 11/20/20227 28 11/20/20227 1.49 11/20/20227 11.9 3.38 10.3 [...] IV * lactated ringers 75 mL/hr at 11/19/20 0816 Assessment: Angelica Ibrahim is a 55 year old female who [...] resident Jcarlos and d/w Attending Surgeon Dr. Cardona. Eleanor Mcneal PA-C General Surgery [place] Pager:[phone] Normal [facility] BASIC METABOLIC PANELon 09-0 Anion gap [Moles/Vol] 15 mmol/L High 5-13 [facility] Comment on above: Performed By: #### P T, APTT #### [facility] [address] [place], [address] Calcium [Mass/Vol] 8.2 mg/dL Low 8.4-10.4 [facility] Comment on above: Performed By: #### P T, APTT #### [facility] [address] [place], [address] Chloride [Moles/Vol] 105 mmol/L Normal 97-111 [facility] Comment on above: Performed By: #### P T, APTT #### [facility] [address] [place] [address], CO2 [Moles/Vol] 23 mmol/L Normal 21-30 The [facility] Comment on above: Performed By: #### P T, APTT #### S [facility] [address] [place] [address], Creatinine [Mass/Vol] 1.33 mg/dL High 0.50-1.10 The [facility] Comment on above: Performed By: #### P T, APTT #### [facility] [address] [place] [address], ESTIMATED GFR (CKD-EPI) 45 mL/min/1.73sqm Low >=60 [facility] Comment on above: Performed By: #### P T, APTT #### [facility] [address] [place] [address], Glucose [Mass/Vol] 96 mg/dL Normal 68-110 [facility] Comment on above: Performed By: #### P T, APTT #### [facility] [address] [place] [address], Potassium [Moles/Vol] 3.8 mmol/L Normal 3.3-5.3 The [facility] Comment on above: Result Comment: Hemo lysis present Performed By: #### P T, APTT #### [facility] [address] [place] [address], Sodium [Moles/Vol] 139 mmol/L Normal 135-148 [facility] Comment on above: Performed By: #### P T, APTT #### [facility] [address] [place] [address], Urea nitrogen [Mass/Vol] 19 mg/dL Normal 8-22 The [facility] Comment on above: Performed By: #### P T, APTT #### [facility] [address] [place] [address], Basic Metabolic Panelon 09-0 -2020 Calcium [Mass/Vol] 8.5 mg/dL Normal 8.2-10.2 [facility] Comment on above: Performed By: #### P TT, BMP, LACTIC, PT, HEPATIC, LIPASE, SCAN CBC #### [facility] [address] Chloride [Moles/Vol] 102 mmol/L Normal 95-114 [facility] Comment on above: Performed By: #### P TT, BMP, LACTIC, PT, HEPATIC, LIPASE, SCAN CBC #### [facility] [address] CO2 [Moles/Vol] 20.9 mmol/L Low 22.0-30.0 [facility] Comment on above: Performed By: #### P TT, BMP, LACTIC, PT, HEPATIC, LIPASE, SCAN CBC #### [address] Creatinine [Mass/Vol] 1.64 mg/dL High 0.44-1.03 [facility] Comment on above: Performed By: #### P TT, BMP, LACTIC, PT, HEPATIC, LIPASE, SCAN CBC #### [address] Creatinine Clr Calc Pharmacy 45.71 [facility] Comment on above: Performed By: #### P TT, BMP, LACTIC, PT, HEPATIC, LIPASE, SCAN CBC #### [address] Estimated GFR ( [place]idy 39 [facility] Comment on above: Result Comment: GFR estimated reference range: According to KDOQI guidelines, <60 ml/min/1.73m2 is sufficient to diagnose a patient with chronic kidney disease. Performed By: #### P TT, BMP, LACTIC, PT, HEPATIC, LIPASE, SCAN CBC #### [address] Estimated GFR (Non- Am 32 [facility] Comment on above: Performed By: #### P TT, BMP, LACTIC, PT, HEPATIC, LIPASE, SCAN CBC #### [place] [address] [place] Glucose [Mass/Vol] 109 mg/dL High 70-100 [facility] Comment on above: Result Comment: [place] Glucose Reference Range is dependent on time and content of last meal. Glucose of more than 200 mg/dL in a nonstressed, ambulatory subject supports the diagnosis of Diabetes Mellitus. ADA recommended reference range Performed By: #### P TT, BMP, LACTIC, PT, HEPATIC, LIPASE, SCAN CBC #### [facility] [address] Potassium [Moles/Vol] 3.2 mmol/L Low 3.5-5.1 [facility] Comment on above: Performed By: #### P TT, BMP, LACTIC, PT, HEPATIC, LIPASE, SCAN CBC #### [facility] [address] Sodium [Moles/Vol] 136 mmol/L Normal 136-146 [facility] Comment on above: Performed By: #### P TT, BMP, LACTIC, PT, HEPATIC, LIPASE, SCAN CBC #### [facility] [address] Urea nitrogen [Mass/Vol] 23 mg/dL Normal 9-23 [facility] Comment on above: Performed By: #### P TT, BMP, LACTIC, PT, HEPATIC, LIPASE, SCAN CBC #### [facility] [address] [place] [address] COMPLETE BLOOD COUNTon 11-19 Erythrocyte distribution width (RBC) [Ratio] 13.4 % Normal 11.5-14.5 [facility] Comment on above: Performed By: #### P T, APTT #### [facility] [address] [place] [address], Hematocrit (Bld) [Volume fraction] 32.4 % Low 36.0-46.0 [facility] [employer] [facility] Comment on above: Performed By: #### P T, APTT #### [facility] [address] [place] [address], Hemoglobin (Bld) [Mass/Vol] 10.7 g/dL Low 12.0-15.0 [facility] Comment on above: Performed By: #### P T, APTT #### [facility] [address] [place] [address], MCH (RBC) [Entitic mass] 29.7 pg Normal 26.0-34.0 [facility] Comment on above: Performed By: #### P T, APTT #### [facility] [address] [place] [address], MCHC (RBC) [Mass/Vol] 33.1 g/dL Normal 32.0-35.9 [facility] Comment on above: Performed By: #### P T, APTT #### [facility] [address] [place] [address], MCV (RBC) [Entitic vol] 90 fL Normal 80-100 [facility] Comment on above: Performed By: #### P T, APTT #### [facility] [address] [place] [address], Platelet mean volume (Bld) [Entitic vol] 8.5 fL Normal 7.5-11.2 [facility] Comment on above: Performed By: #### P T, APTT #### [facility] [address] [place] [address], Platelets (Bld) [#/Vol] 274 10*3/uL Normal 150-400 [facility] Comment on above: Performed By: #### P T, APTT #### [facility] [address] [place] [address], RBC (Bld) [#/Vol] 3.62 10*6/uL Low 4.00-5.20 [facility] [employer] [facility] Comment on above: Performed By: #### P T, APTT #### [facility] [address] [place] [address], WBC (Bld) [#/Vol] 12.4 10*3/uL High 4.5-11.5 [facility] [employer] [facility] Comment on above: Performed By: #### P T, APTT #### [facility] [address] [place] [address], COVID-19 Antigenon 1 COVID-19 Antigen Healthcare Worker?: [...] its performance Braulio Disclaimer characteristic determined by [employer] and Braulio Disclaimer validated at [facility]. This Braulio Disclaimer test has not been [...] is terminated or revoked sooner. PERFORMED BY: [place] [address] PATHOLOGIST COOK CHIEF JUNAID ROA M.D. [facility] Comment on above: Performed By: #### C OVID-19 BRAULIO, SOFIANEG #### [address] Consultson 11-19-2020 [employer] Hearth Furnace Operator Authentication Interface Message Text Attestation signed by Brendan, Yudy Meléndez MD at 11/25/2020 9:19 PM Teaching Physician Note: I reviewed the resident's documentation and discussed the patient with the resident on the date of this note. I agree with the resident's medical decision making as documented in the resident's note. Yudy Cardona MD [facility] SURGERY EMERGENCY [...] review of symptoms PHYSICAL EXAM: VITALS: Vitals: 11/19/202049 BP: 120/63 Pulse: 72 Resp: 20 Temp: [...] Arterial Blood Gases None ASSESSMENT/RECOMMENDAT IONS: Angelica Ibrahim is a 55 year old female who [...] with colorectal attending Dr Cardona. Normal [facility] [employer] Dipstick and Micro[employer] 0 11-19-2020 Appearance (U) Clear Normal Clear [facility] Comment on above: Order Comment: Name Collection Type:: Clean-Voided Midstream Performed By: #### A DDONUAPLUS #### [facility] [address] [place] [address] [place] Bacteria,Urine None Seen Normal None Seen [facility] Comment on above: Order Comment: Name Collection Type:: Clean-Voided Midstream Performed By: #### A DDONUAPLUS #### [facility] [address] [place] [address] [place] Bilirubin,Urine Negative Normal Negative [facility] Comment on above: Order Comment: Name Collection Type:: Clean-Voided Midstream Performed By: #### A DDONUAPLUS #### [place] [address] [place] Color (U) Yellow Normal Yellow [facility] Comment on above: Order Comment: Name Collection Type:: Clean-Voided Midstream Performed By: #### A DDONUAPLUS #### [place] [address] [place] Glucose Ql (U) Normal Normal Normal [facility] Comment on above: Order Comment: Name Collection Type:: Clean-Voided Midstream Performed By: #### A DDONUAPLUS #### [facility] [address] [place] [address] [place] Hyaline Casts,Urine 9-19 High 0-8 [facility] Comment on above: Order Comment: Name Collection Type:: Clean-Voided Midstream Result Comment: PERF ORMED BY: [place] [address] PATHOLOGIST COOK CHIEF JUNAID ROA M.D. Performed By: #### A DDONUAPLUS #### [facility] [address] [place] [address] [place] Ketones Ql (U) Negative Normal Negative [facility] Comment on above: Order Comment: Name Collection Type:: Clean-Voided Midstream Performed By: #### A DDONUAPLUS #### [facility] [address] [place] [address] [place] Leukocyte esterase Test strip Ql (U) Negative Normal Negative [facility] Comment on above: Order Comment: Name Collection Type:: Clean-Voided Midstream Performed By: #### A DDONUAPLUS #### [place] [address] [place] Nitrite,Urine Negative Normal Negative [facility] Comment on above: Order Comment: Name Collection Type:: Clean-Voided Midstream Performed By: #### A DDONUAPLUS #### [place] [address] [place] Occult Blood,Urine 1+ High Negative [facility] Comment on above: Order Comment: Name Collection Type:: Clean-Voided Midstream Performed By: #### A DDONUAPLUS #### [address] pH (U) 5.0 [pH] Normal 5.0-9.0 [facility] Comment on above: Order Comment: Name Collection Type:: Clean-Voided Midstream Performed By: #### A DDONUAPLUS #### [address] Protein (U) [Mass/Vol] 30 mg/dL High Negative [facility] Comment on above: Order Comment: Name Collection Type:: Clean-Voided Midstream Performed By: #### A DDONUAPLUS #### [address] RBC,Urine 3-4 Normal 0-4 [facility] Comment on above: Order Comment: Name Collection Type:: Clean-Voided Midstream Performed By: #### A DDONUAPLUS #### [place] [address] [place] Renal Epithelial Cells,Urine Rare Normal 0-1 [facility] Comment on above: Order Comment: Name Collection Type:: Clean-Voided Midstream Performed By: #### A DDONUAPLUS #### [place] [address] [place] Specificy [place],Urine > 1.050 High 1.001-1.030 [facility] Comment on above: Order Comment: Name Collection Type:: Clean-Voided Midstream Performed By: #### A DDONUAPLUS #### [facility] [address] Squamous Epithelial Cell,Urine 5-9 High 0-2 [facility] Comment on above: Order Comment: Name Collection Type:: Clean-Voided Midstream Performed By: #### A DDONUAPLUS #### [facility] [address] Urobilinogen,Urine Normal Normal Normal [facility] Comment on above: Order Comment: Name Collection Type:: Clean-Voided Midstream Performed By: #### A DDONUAPLUS #### [address] WBC,Urine 10-19 High 0-4 [facility] Comment on above: Order Comment: Name Collection Type:: Clean-Voided Midstream Performed By: #### A DDONUAPLUS #### [address] ED Provider Noteson 11-20-19 [employer] Furn[employer] Operator Authentication Interface Message Text EMERGENCY DEPARTMENT - VISIT NOTE -------- HISTORY OF PRESENT ILLNESS ---- No chief complaint on file. HIPAA: Verbal permission granted from patient to discuss case, including protected health information, in front of family / friends if anyone was in room at the time of the evaluation. Battery Assembler Plastic: none The history is provided by the Patient. Angelica Ibrahim is a 55 year old female presenting [...] perforation and abscess. She was sent to [facility] to be evaluated by acute Care surgery. [...] Bond DO Medical Decision Making: Summary Angelica Ibrahim is a 55 year old female with [...] plan (more content not included)... Normal [facility] Hepatic Panelon 11-19-2020 Albumin [Mass/Vol] 2.8 g/dL Low 3.2-5.5 [facility] Comment on above: Performed By: #### P TT, BMP, LACTIC, PT, HEPATIC, LIPASE, SCAN CBC #### [facility] [address] Albumin/Globulin [Mass ratio] 0.7 {ratio} Normal [facility] Comment on above: Performed By: #### P TT, BMP, LACTIC, PT, HEPATIC, LIPASE, SCAN CBC #### [address] ALP [Catalytic activity/Vol] 98 U/L High 32-92 [facility] Comment on above: Performed By: #### P TT, BMP, LACTIC, PT, HEPATIC, LIPASE, SCAN CBC #### [place] [address] [place] ALT [Catalytic activity/Vol] 38 U/L Normal 10-60 [facility] Comment on above: Performed By: #### P TT, BMP, LACTIC, PT, HEPATIC, LIPASE, SCAN CBC #### [place] [id number] [place] AST [Catalytic activity/Vol] 18 U/L Normal 10-42 [facility] Comment on above: Performed By: #### P TT, BMP, LACTIC, PT, HEPATIC, LIPASE, SCAN CBC #### [place] [id number] [place] Bilirubin [Mass/Vol] 0.8 mg/dL Normal 0.3-1.2 [facility] Comment on above: Performed By: #### P TT, BMP, LACTIC, PT, HEPATIC, LIPASE, SCAN CBC #### [place] [address] [place] Bilirubin,Indirect 0.6 mg/dL Normal [facility] Comment on above: Performed By: #### P TT, BMP, LACTIC, PT, HEPATIC, LIPASE, SCAN CBC #### [facility] [address] Bilirubin.indirect [Mass/Vol] 0.2 mg/dL Normal 0.0-0.4 [facility] Comment on above: Performed By: #### P TT, BMP, LACTIC, PT, HEPATIC, LIPASE, SCAN CBC #### [facility] [address] Globulin (S) [Mass/Vol] 3.8 g/dL Normal [facility] Comment on above: Performed By: #### P TT, BMP, LACTIC, PT, HEPATIC, LIPASE, SCAN CBC #### [facility] [address] Protein [Mass/Vol] 6.6 g/dL Normal 6.1-7.9 [facility] Comment on above: Performed By: #### P TT, BMP, LACTIC, PT, HEPATIC, LIPASE, SCAN CBC #### [facility] [address] LACTATE WITH REPEAT EDon CR LACT 1.1 mmol/L Normal 0.5-2.0 [facility] Comment on above: Performed By: #### L ACTREPEAT #### [facility] [address] [place] [address], [id number] Lactic Acidon 11-19-2020 Lactate [Moles/Vol] 0.9 mmol/L Normal 0.5-2.2 [facility] Comment on above: Result Comment: PERF ORMED BY: [place] [address] PATHOLOGIST COOK CHIEF JUNAID ROA M.D. Performed By: #### P TT, BMP, LACTIC, PT, HEPATIC, LIPASE, SCAN CBC #### [facility] [address] Lipaseon 11-19-2020 Lipase [Catalytic activity/Vol] 22.0 U/L Normal 22-51 [facility] Comment on above: Result Comment: PERF ORMED BY: [address] [id number] PATHOLOGIST COOK CHIEF JUNAID ROA M.D. Performed By: #### P TT, BMP, LACTIC, PT, HEPATIC, LIPASE, SCAN CBC #### [facility] [address] [place], [place] [id number] [facility] MAGNESIUMon 11-19-2020 Magnesium [Mass/Vol] 2.1 mg/dL Normal 1.6-2.8 [facility] Comment on above: Result Comment: Hemo lysis present Performed By: #### P T, APTT #### [facility] [address] [place], [place], PHOSPHORUSon 11-19-2020 Phosphate [Mass/Vol] 4.1 mg/dL Normal 2.5-4.8 [facility] Comment on above: Performed By: #### P T, APTT #### [facility] [address], [place], Partial Thromboplastin Timeo n 11-19-2020 aPTT Coag (Bld) [Time] 29.6 s Normal 25.1-36.5 [facility] Comment on above: Result Comment: PERF ORMED BY: [place] [address] PATHOLOGIST COOK CHIEF JUNAID ROA M.D. Performed By: #### P TT, BMP, LACTIC, PT, HEPATIC, LIPASE, SCAN CBC #### [facility] [address] [place], [place] [id number] [facility] Prothrombin Time INRon 11-19 INR Coag (PPP) [Relative time] 1.3 {INR} Normal [facility] Comment on above: Result Comment: INR Therapeutic [...] LACTIC, PT, HEPATIC, LIPASE, SCAN CBC #### [address] PT Coag (PPP) [Time] 14.7 s High 9.0-12.9 [facility] Comment on above: Performed By: #### P TT, BMP, LACTIC, PT, HEPATIC, LIPASE, SCAN CBC #### [address] Scan and CBCon 11-19-2020 Basophils (Bld) [#/Vol] 0.0 10*3/uL Normal 0.0-0.2 [facility] Comment on above: Performed By: #### P TT, BMP, LACTIC, PT, HEPATIC, LIPASE, SCAN CBC #### [address] Basophils/100 WBC (Bld) 0.3 % Normal . [facility] Comment on above: Performed By: #### P TT, BMP, LACTIC, PT, HEPATIC, LIPASE, SCAN CBC #### [address] Eosinophils (Bld) [#/Vol] 0.0 10*3/uL Normal 0.0-0.45 [facility] Comment on above: Performed By: #### P TT, BMP, LACTIC, PT, HEPATIC, LIPASE, SCAN CBC #### [address] Eosinophils/100 WBC (Bld) 0.2 % Normal . [facility] Comment on above: Performed By: #### P TT, BMP, LACTIC, PT, HEPATIC, LIPASE, SCAN CBC #### [address] Erythrocyte distribution width (RBC) [Ratio] 13.3 % Normal 11.9-15.3 [facility] Comment on above: Performed By: #### P TT, BMP, LACTIC, PT, HEPATIC, LIPASE, SCAN CBC #### [address] Hematocrit (Bld) [Volume fraction] 36.7 % Normal 34.0-46.4 [facility] Comment on above: Performed By: #### P TT, BMP, LACTIC, PT, HEPATIC, LIPASE, SCAN CBC #### [address] Hemoglobin (Bld) [Mass/Vol] 12.6 g/dL Normal 11.8-15.4 [facility] Comment on above: Performed By: #### P TT, BMP, LACTIC, PT, HEPATIC, LIPASE, SCAN CBC #### [address] Lymphocytes (Bld) [#/Vol] 1.1 10*3/uL Normal 1.00-4.8 [facility] Comment on above: Performed By: #### P TT, BMP, LACTIC, PT, HEPATIC, LIPASE, SCAN CBC #### [address] Lymphocytes/100 WBC (Bld) 7.0 % Normal . [facility] Comment on above: Performed By: #### P TT, BMP, LACTIC, PT, HEPATIC, LIPASE, SCAN CBC #### [address] MCH (RBC) [Entitic mass] 30.6 pg Normal 24.7-34.3 [facility] Comment on above: Performed By: #### P TT, BMP, LACTIC, PT, HEPATIC, LIPASE, SCAN CBC #### [address] MCV (RBC) [Entitic vol] 89.2 fL Normal 80-100 [facility] Comment on above: Performed By: #### P TT, BMP, LACTIC, PT, HEPATIC, LIPASE, SCAN CBC #### [address] Mean Corpuscular HGB Conc 34.3 g/dL Normal 32.0-35.0 [facility] Comment on above: Performed By: #### P TT, BMP, LACTIC, PT, HEPATIC, LIPASE, SCAN CBC #### [address] Monocytes (Bld) [#/Vol] 1.6 10*3/uL High 0.0-0.8 [facility] Comment on above: Performed By: #### P TT, BMP, LACTIC, PT, HEPATIC, LIPASE, SCAN CBC #### [place] [address] [place] Monocytes/100 WBC (Bld) 10.6 % Normal . [facility] Comment on above: Performed By: #### P TT, BMP, LACTIC, PT, HEPATIC, LIPASE, SCAN CBC #### [address] Neutrophils (Bld) [#/Vol] 12.8 10*3/uL High 1.8-7.7 [facility] Comment on above: Performed By: #### P TT, BMP, LACTIC, PT, HEPATIC, LIPASE, SCAN CBC #### [address] Neutrophils/100 WBC (Bld) 81.9 % Normal . [facility] Comment on above: Performed By: #### P TT, BMP, LACTIC, PT, HEPATIC, LIPASE, SCAN CBC #### [address] Nucleated RBC/100 WBC (Bld) [Ratio] 0.1 % Normal 0-0.5 [facility] Comment on above: Performed By: #### P TT, BMP, LACTIC, PT, HEPATIC, LIPASE, SCAN CBC #### [place] [address] [place] Ovalocytes Slight Normal [facility] Comment on above: Performed By: #### P TT, BMP, LACTIC, PT, HEPATIC, LIPASE, SCAN CBC #### [place] [address] [place] Platelet Estimate Normal Normal Normal [facility] Comment on above: Performed By: #### P TT, BMP, LACTIC, PT, HEPATIC, LIPASE, SCAN CBC #### [address] Platelet mean volume (Bld) [Entitic vol] 8.1 fL Normal 6.3-10.7 [facility] Comment on above: Performed By: #### P TT, BMP, LACTIC, PT, HEPATIC, LIPASE, SCAN CBC #### [address] Platelet Morphology Normal Normal Normal [facility] Comment on above: Result Comment: PERF ORMED BY: [place] [address] PATHOLOGIST COOK CHIEF JUNAID ROA M.D. Performed By: #### P TT, BMP, LACTIC, PT, HEPATIC, LIPASE, SCAN CBC #### [address] Platelets (Bld) [#/Vol] 330 10*3/uL Normal 150-450 [facility] Comment on above: Performed By: #### P TT, BMP, LACTIC, PT, HEPATIC, LIPASE, SCAN CBC #### [address] Poikilocytosis Slight Normal [facility] Comment on above: Performed By: #### P TT, BMP, LACTIC, PT, HEPATIC, LIPASE, SCAN CBC #### [address] RBC (Bld) [#/Vol] 4.12 10*6/uL Normal 3.60-5.00 [facility] Comment on above: Performed By: #### P TT, BMP, LACTIC, PT, HEPATIC, LIPASE, SCAN CBC #### [address] WBC (Bld) [#/Vol] 15.6 10*3/uL High 4.5-11.0 [facility] Comment on above: Performed By: #### P TT, BMP, LACTIC, PT, HEPATIC, LIPASE, SCAN CBC #### [address] Braulio Ag Negativeon 11-20-19 21 Braulio Ag Negative Negative Normal Negative [facility] Comment on above: Result Comment: This is a duplicate Braulio SARS Antigen (ARIANNA) result to be used for statistical tracking purpose only. PERFORMED BY: [place] [address] PATHOLOGIST COOK CHIEF JUNAID ROA M.D. Performed By: #### C OVID-19 LIOR RAMSEY #### [facility] [address] [place] [id number] [facility] Vital Signs Date Time Vital Sign Value Performing Clinician Mejia manzano 06-18-2024 09:09-0400 Diastolic blood pressure 100 mm[Hg] Chenjaylene Boykinz TRANSMISSION ENGINEER Work Phone: [facility] 06-18-2024 09:09-0400 Systolic blood pressure 180 mm[Hg] Chen Aichholz TRANSMISSION ENGINEER Work Phone: [facility] 06-18-2024 09:03-0400 Body mass index (BMI) [Ratio] 43.75 kg/m2 Chen Aichholz TRANSMISSION ENGINEER Work Phone: [facility] 06-18-2024 09:03-0400 Body temperature 98.29 [degF] Chen Taliholz TRANSMISSION ENGINEER Work Phone: [facility] 06-18-2024 09:03-0400 Body weight 108.5 kg Chen Aichholz TRANSMISSION ENGINEER Work Phone: [facility] 06-18-2024 09:03-0400 Heart rate 50 /min Chen Taliholz TRANSMISSION ENGINEER Work Phone: [facility] 06-18-2024 09:03-0400 Respiratory rate 20 /min Chen Taliholz TRANSMISSION ENGINEER Work Phone: [facility] 06-18-2024 09:03-0400 SaO2% (BldA) [Mass fraction] 95 % Chen Juan Manuelhholz TRANSMISSION ENGINEER Work Phone: [facility] 12-19-2023 15:26-0400 Body height 157.5 cm Chen Juan Manuelhholz TRANSMISSION ENGINEER Work Phone: [facility] 12-19-2023 15:26-0400 Body mass index (BMI) [Ratio] 44.52 kg/m2 Chen Aichholz TRANSMISSION ENGINEER Work Phone: [facility] 12-19-2023 15:26-0400 Body temperature 98.71 [degF] Chen Morley TRANSMISSION ENGINEER Work Phone: [facility] 12-19-2023 15:26-0400 Body weight 110.41 kg Chen Morley TRANSMISSION ENGINEER Work Phone: [facility] 12-19-2023 15:26-0400 Diastolic blood pressure 80 mm[Hg] Chen Boykingilda TRANSMISSION ENGINEER Work Phone: [facility] 12-19-2023 15:26-0400 Heart rate 66 /min Chenjaylene Boykinz TRANSMISSION ENGINEER Work Phone: [facility] 12-19-2023 15:26-0400 Respiratory rate 18 /min Chen Boykinz TRANSMISSION ENGINEER Work Phone: [facility] 12-19-2023 15:26-0400 SaO2% (BldA) [Mass fraction] 93 % Chen Boykingilda TRANSMISSION ENGINEER Work Phone: [facility] 12-19-2023 15:26-0400 Systolic blood pressure 160 mm[Hg] Chen Boykinz TRANSMISSION ENGINEER Work Phone: [facility] Healthcare Encounters Encounter Date Encounter Type Care Provider Facility Start: 06-18-2024 End: 06-18-2024 Bamboo flowsheet Chen Cesarben TRANSMISSION ENGINEER Work Phone: [facility] Start: 06-18-2024 End: 06-18-2024 Bamboo flowsheet Chen Cesarben TRANSMISSION ENGINEER Work Phone: [facility] Start: 06-18-2024 End: 06-18-2024 Office outpatient visit 25 minutes Chen Milli TRANSMISSION ENGINEER Work Phone: [facility] Comment on above: Primary hypertension (CMS/HCC) (Primary Dx); Morbid (severe) obesity due to excess calories (CMS/HCC); Body mass index (BMI) 40.0-44.9, adult (CMS/HCC); Heart palpitations; Acquired hypothyroidism (CMS/HCC); Mixed hyperlipidemia (CMS/HCC) ; Encounter for screening mammogram for malignant neoplasm of breast; Colon cancer screening; Cigarette nicotine dependence without complication; Hypothyroidism, unspecified (CMS/HCC); Yeast dermatitis Start: 12-21-2023 End: 12-21-2023 Refill Chen Morley TRANSMISSION ENGINEER Work Phone: [facility] Comment on above: Mixed hyperlipidemia (CMS/HCC) Start: 12-20-2023 End: 12-20-2023 Clinisync Result Encounter Chen Morley TRANSMISSION ENGINEER Work Phone: [facility] External Department Unsolicited Start: 12-20-2023 End: 12-20-2023 Clinisync Result Encounter Chen Morley TRANSMISSION ENGINEER Work Phone: [facility] External Department Unsolicited Start: 12-19-2023 End: 12-19-2023 Office outpatient visit 25 minutes Chen Morley TRANSMISSION ENGINEER Work Phone: [facility] Comment on above: Primary hypertension (CMS/HCC) (Primary Dx); Morbid (severe) obesity due to excess calories (CMS/HCC); Body mass index (BMI) 45.0-49.9, adult (CMS/HCC); Mixed hyperlipidemia (CMS/HCC); Hypothyroidism (acquired) (CMS/HCC); Heart palpitations; Hypothyroidism, unspecified (CMS/HCC) Start: 12-19-2023 End: 12-19-2023 ambulatory CHEN AICHHOLZ Not Available Start: 12-19-2023 End: 12-19-2023 Bamboo flowsheet Chen Taliholz TRANSMISSION ENGINEER Work Phone: [facility] Start: 12-19-2023 End: 12-19-2023 Bamboo flowsheet Chen Taliholz TRANSMISSION ENGINEER Work Phone: [facility] Start: 06-16-2023 End: 06-16-2023 ambulatory CHEN AICHHOLZ Not Available Start: 02-18-2022 End: 02-19-2022 ambulatory HOSE SPRAYER CHEN AICHHOLZ Facility: Start: 12-05-2021 End: 09-18-2022 ambulatory HOSE SPRAYER CHEN AICHHOLZ Facility:[facility] Start: 10-14-2021 End: 10-15-[address] BISHNU VILLA Facility: Start: 04-14-2021 End: 04-14-2021 ambulatory UNKNOWN PROVIDER Facility:[facility] Start: 12-26-2020 End: 12-26-2020 ambulatory UNKNOWN PROVIDER Facility:[facility] Start: 12-09-2020 End: 12-14-2020 Evaluation and management of inpatient IP OCCUPATIONAL THERAPY SERVICE REQUEST [facility] Start: 12-03-2020 ambulatory [facility] Start: 12-03-2020 End: 12-03-2020 ambulatory UNKNOWN PROVIDER [facility] Start: 12-03-2020 End: 12-29-2020 ambulatory UNKNOWN PROVIDER Facility:[facility] Start: 11-20-2020 ambulatory ANISA HOPKINS Fac ility:[facility] Start: 11-20-2020 End: 11-21-2020 Evaluation and management of inpatient YUDY L. TIMES Facility:[facility] Start: 11-19-2020 ambulatory UNKNOWN PROVIDER Facili ty:[facility] Procedures Date Procedure Procedure Detail Performing Clinician Start: 06-18-2024 Mammography Chen zambrano TRANSMISSION ENGINEER Work Phone: Start: 12-20-2023 [facility] UA (CLEAN/CATCH) MICROSCOPIC IF INDICATE Chen Morley TRANSMISSION ENGINEER Work Phone: Start: 06-16-2023 Mammography Chen zambrano TRANSMISSION ENGINEER Work Phone: Start: 06-15-2023 Microscopic observat ion [Identifier] in Cervix by Cyto stain Chen Morley TRANSMISSION ENGINEER Work Phone: Plan of Treatment Date Care Activity Detail Author Start: 06-14-2026 Screening for malign ant neoplasm of cervix [facility] Healthcare Start: 06-18-2025 Screening for malign ant neoplasm of breast Mammogram [facility] Start: 06-18-2025 Screening for malign ant neoplasm of colon Colorectal Cancer Screening [facility] Comment on above: Postponed from 05/31 (Patient Refused) Start: 07-10-2024 End: 07-10-2024 Patient encounter procedure 07/10/2024 11:00 AM EDT Office Visit [facility] [address] [address] Chen Morley NP [address] [place] [address] [facility] Start: 06-18-2024 End: 06-18-2025 Comprehensive metabolic 2000 panel - Serum or Plasma Comprehensive metabolic panel Lab Routine Primary hypertension (CMS/HCC) Mixed hyperlipidemia (CMS/HCC) Expected: 06/18/2024 (Approximate), Expires: 06/18/2025 [facility] Comment on above: Expected: 06/18/2024 (Approximate), Expires: 06/18/2025 Start: 06-18-2024 End: 06-18-2025 Lipid 1996 panel - Serum or Plasma Lipid panel Lab Routine Mixed hyperlipidemia (CMS/HCC) Expected: 06/18/2024 (Approximate), Expires: 06/18/2025 [facility] Comment on above: Expected: 06/18/2024 (Approximate), Expires: 06/18/2025 Start: 06-18-2024 End: 06-18-2025 Thyrotropin [Units/volume] in Serum or Plasma TSH Lab Routine Hypothyroidism, unspecified (CMS/HCC) Expected: 06/18/2024 (Approximate), Expires: 06/18/2025 [facility] Work Phone: Comment on above: Expected: 06/18/2024 (Approximate), Expires: 06/18/2025 Start: 06-18-2024 End: 06-18-2025 Thyroxine (T4) free [Mass/volume] in Serum or Plasma T4, free Lab Routine Hypothyroidism, unspecified (CMS/HCC) Expected: 06/18/2024 (Approximate), Expires: 06/18/2025 [facility] Comment on above: Expected: 06/18/2024 (Approximate), Expires: 06/18/2025 Start: 06-18-2024 End: 06-18-2024 Patient encounter procedure [facility] Comment on above: Heart palpitations ( Primary Dx); Morbid (severe) obesity due to excess calories (CMS/HCC); Body mass index (BMI) 40.0-44.9, adult (CMS/HCC); Primary hypertension (CMS/HCC); Acquired hypothyroidism (CMS/HCC); Mixed hyperlipidemia (CMS/HCC) ; Encounter for screening mammogram for malignant neoplasm of breast; Colon cancer screening; Cigarette nicotine dependence without complication Start: 06-15-2024 Screening for malign ant neoplasm of breast Mammogram [facility] Start: 06-15-2024 Screening for malign ant neoplasm of colon Colorectal Cancer Screening [facility] Comment on above: Postponed from 05/31 (Patient Refused) Start: 12-19-2023 End: 12-19-2023 Patient encounter procedure 12/19/2023 3:20 PM EDT Office Visit [facility] [address] [place] [id number] Chen Morley NP [address] [place] [id number] Primary hypertension (CMS/HCC) (Primary Dx); Morbid (severe) obesity due to excess calories (CMS/HCC); Body mass index (BMI) 45.0-49.9, adult (CMS/HCC); Mixed hyperlipidemia (CMS/HCC); Hypothyroidism (acquired) (CMS/HCC); Heart palpitations [facility] Comment on above: Primary hypertension (CMS/HCC) (Primary Dx); Morbid (severe) obesity due to excess calories (CMS/HCC); Body mass index (BMI) 45.0-49.9, adult (CMS/HCC); Mixed hyperlipidemia (CMS/HCC); Hypothyroidism (acquired) (CMS/HCC); Heart palpitations Start: 12-19-2023 End: 12-18-2024 CBC W Auto Differential panel - Blood CBC and differential Lab Routine Hypothyroidism (acquired) (CMS/HCC) Expected: 12/19/2023 (Approximate), Expires: 12/18/2024 [facility] Work Phone: Comment on above: Expected: 12/19/2023 (Approximate), Expires: 12/18/2024 Start: 12-19-2023 End: 12-18-2024 Comprehensive metabolic 2000 panel - Serum or Plasma Comprehensive metabolic panel Lab Routine Primary hypertension ([facility]/HCC) Mixed hyperlipidemia ([facility]/HCC) Expected: 12/19/2023 (Approximate), Expires: 12/18/2024 [facility] Comment on above: Expected: 12/19/2023 (Approximate), Expires: 12/18/2024 Start: 12-19-2023 End: 12-18-2024 Lipid 1996 panel - Serum or Plasma Lipid panel Lab Routine Mixed hyperlipidemia ([facility]/HCC) Expected: 12/19/2023 (Approximate), Expires: 12/18/2024 [facility] Comment on above: Expected: 12/19/2023 (Approximate), Expires: 12/18/2024 Start: 12-19-2023 End: 12-18-2024 Microalbumin/Creatinine panel in random Urine Microalbumin / creatinine, urine ratio Lab Routine Primary hypertension ([facility]/HCC) Expected: 12/19/2023 (Approximate), Expires: 12/18/2024 [facility] Comment on above: Expected: 12/19/2023 (Approximate), Expires: 12/18/2024 Start: 12-19-2023 End: 12-18-2024 Thyrotropin [Units/volume] in Serum or Plasma TSH Lab Routine Hypothyroidism (acquired) ([facility]) Expected: 12/19/2023 (Approximate), Expires: 12/18/2024 [facility] Comment on above: Expected: 12/19/2023 (Approximate), Expires: 12/18/2024 Start: 12-19-2023 End: 12-18-2024 Thyroxine (T4) free [Mass/volume] in Serum or Plasma T4, free Lab Routine Hypothyroidism (acquired) ([facility]) Expected: 12/19/2023 (Approximate), Expires: 12/18/2024 [facility] Comment on above: Expected: 12/19/2023 (Approximate), Expires: 12/18/2024 Start: 12-19-2023 End: 12-18-2024 Urinalysis complete panel - Urine Urinalysis with reflex microscopic (clean catch) Lab Routine Primary hypertension ([facility]/HCC) Expected: 12/19/2023 (Approximate), Expires: 12/18/2024 [facility] Comment on above: Expected: 12/19/2023 (Approximate), Expires: 12/18/2024 Start: 11-20-2023 Influenza vaccination Influenza Vacc ine (#1) [facility] Start: 1994 Screening for malign ant neoplasm of cervix HPV/Cotest [facility] Start: 1965 Screening for malign ant neoplasm of colon [facility] Immunizations Immunization Date Immunization Notes Care Provider Fa cility 01-04-2022 SARS-COV-2 (COVID-19 ) vaccine, mRNA, spike protein, LNP, bivalent, preservative free, 30 mcg/0.3 mL dose, danny-sucrose formulation Chen Aichholz TRANSMISSION ENGINEER Work Phone: [facility] 03-04-2021 Pfizer Purple Cap SARS-CoV-2 Vaccination Chen Aichholz TRANSMISSION ENGINEER Work Phone: [facility] 07-21-2020 Pfizer Purple Cap SARS-CoV-2 Vaccination Chen Aichholz TRANSMISSION ENGINEER Work Phone: [facility] 06-30-2020 Pfizer Purple Cap SARS-CoV-2 Vaccination Chen Aichholz TRANSMISSION ENGINEER Work Phone: [facility] Payers Date Payer Category Payer [facility] [employer] [id number] 2021 Unknown BCBS BCBS [id number] 2021-Present [phone] [address] [place] [address] [id number] 1965 Unknown [id number] .732 1965 Unknown [id number] [id number] .732 1964 Unknown [id number] [id number] .732 1964 Unknown [id number] [id number] .732 1964 Unknown [id number] .732 1964 Unknown [id number] [id number] .732 1964 Unknown [id number] 2.16.840.1.000550.3.579.2 .732 1964 Unknown [id number] 2.16.840.1.990048.3.579.2 .732 1964 Unknown [id number] 2.16.840.1.985187.3.579.2 .732 1964 Unknown [id number] 2.16.840.1.010106.3.579.2 .732 1964 Unknown [id number] 2.16.840.1.034056.3.579.2 .593 1964 Unknown [id number] 2.16.840.1.942742.3.579.2 .593 1964 Unknown [id number] 2.16.840.1.156865.3.579.2 .593 1964 Unknown [id number] [id number] .1259 1964 Unknown [id number] .1259 1960 [facility] VANDANA [id number] Social History Date Type Detail Facility Start: 06-16-2023 [facility] History of tobacco use Current smoker [facility] History of tobacco use Cigarette Smoker [facility] Start: 06-16-2023 Tobacco use and exposure Smoke less tobacco non-user [facility] Start: 06-16-2023 End: 06-18-2024 Alcoholic beverage intake Ex-drinker (finding) [facility] Start: 06-16-2023 End: 06-18-2024 History of Social function [facility] Start: 06-16-2023 End: 06-18-2024 Tobacco use panel [facility] Start: 06-16-2023 Alcohol Comment caffine: 2-4 daily c offee [facility] Start: 1965 Sex assigned at Not on file [facility] Clinical Notes 11-20-2020 to 06-18-2024 Chen Morley NP - 06/18/2024 9:44 AM Frances Morley NP - 06/18/2024 9:30 AM Frances Morley NP - 06/18/2024 9:30 AM EDTHXENIA MORGAN - 06/18/2024 9:00 AM EDTPatient Instructions Note Date & Type Note Facility 06-18-2024 History of Presen t illness Narrative Associated Problem(s): Yeast dermatitis Under breasts and groin region, uses nystatin prn Associated Problem(s): Colon cancer screening Declines wanting to get this done Associated Problem(s): Encounter for screening mammogram for malignant neoplasm of breast declines Pt is taking 50mg of metoprolol in the morning and 50mg at night- pt states that it lasts longer through out the night When checking BP for both arms Pt states that she does not understand why she can not tell that her BP is that high she does not have a racy heart, she denies pain, blurry vision, dizziness, SOB, or headache at this time. Images from the original note were not included. Angelica Ibrahim is a 59 y.o. female presents with chief complaint of No chief complaint on file. HPI: Thyroid Problem Presents for follow-up visit. Symptoms include palpitations. Patient reports no anxiety, constipation, depressed mood, diaphoresis, diarrhea, dry skin, leg swelling, tremors or weight gain. The symptoms have been stable. Hypertension This is a chronic problem. The current episode started more than 1 year ago. The problem has been waxing and waning since onset. The problem is uncontrolled. Associated symptoms include palpitations. Pertinent negatives include no blurred vision, chest pain, headaches, peripheral edema or shortness of breath. There are no associated agents to hypertension. Risk factors for coronary artery disease include dyslipidemia, obesity, sedentary lifestyle and smoking/tobacco exposure. Past treatments include beta blockers. The current treatment provides moderate improvement. There are no compliance problems. Identifiable causes of hypertension include a thyroid problem. Palpitations This is a chronic problem. The current episode started more than 1 year ago. The problem occurs intermittently. The problem has been waxing and waning. The symptoms are aggravated by thyroid drugs. Pertinent negatives include no anxiety, chest pain, coughing, diaphoresis, dizziness, fever, nausea, near-syncope, shortness of breath or vomiting. She has tried nothing for the symptoms. Risk factors include obesity and smoking/tobacco exposure. SUBJECTIVE: MEDICATIONS: Current Outpatient Medications Medication Instructions albuterol HFA 90 mcg/act inhaler 2 puffs, Inhalation, Every 6 hours PRN ibuprofen 400 mg, Oral, Every 8 hours PRN levothyroxine (SYNTHROID, LEVOXYL) 88 mcg, Oral, Daily before breakfast metoprolol succinate XL (TOPROL-XL) 75 mg, Oral, Daily, Do not crush or chew. pravastatin (PRAVACHOL) 10 mg, Oral, Nightly, Take 10 mg by mouth at bedtime ALLERGIES: No Known Allergies REVIEW OF SYMPTOMS: Review of Systems Constitutional: Negative for appetite change, chills, diaphoresis, fever and weight gain. HENT: Negative for congestion, ear pain and sore throat. Eyes: Negative for blurred vision, pain, discharge, redness and visual disturbance. Respiratory: Negative for cough, shortness of breath and wheezing. Cardiovascular: Positive for palpitations. Negative for chest pain, leg swelling and near-syncope. Gastrointestinal: Negative for abdominal pain, blood in stool, constipation, diarrhea, nausea and vomiting. Genitourinary: Negative for difficulty urinating, dysuria and frequency. Musculoskeletal: Negative for arthralgias, back pain, joint swelling and myalgias. Skin: Negative for rash and wound. Neurological: Negative for dizziness, tremors, seizures, syncope and headaches. Psychiatric/Behavioral: Negative for behavioral problems, self-injury and suicidal ideas. The patient is not nervous/anxious. Hematological: Does not bruise/bleed easily. Endocrine: Negative for polydipsia, polyphagia and polyuria. Allergic/Immunologic: Negative for environmental allergies and food allergies. PAST MEDICAL HISTORY Past Medical History: Diagnosis Date Acute left flank pain Acute non-recurrent maxillary sinusitis 02/21/2023 Anxiety and depression (CMS/HCC) Diverticulitis Dyspnea Encephalitis Heart palpitations History of hernia repair Hyperlipidemia (CMS/HCC) Hypertension (CMS/HCC) Hypothyroidism (CMS/HCC) Incisional hernia LLQ pain Rectal bleeding Rectal discharge Right foot pain Past Surgical History: Procedure Laterality Date CT GUIDED CRYOABLATION RENAL RIGHT Right 11/20/2020 CT GUIDED CRYOABLATION RENAL RIGHT 11/20/2020 HERNIA REPAIR Triple TUBAL LIGATION family history includes ALS in her mother; Atrial fibrillation in her father; Bipolar disorder in her brother; Cancer in her father; Coronary artery disease in her mother; Heart disease in her father and mother; Hyperlipidemia in her mother; Hypertension in her mother; Hypothyroidism in her father; Low circulation in legs in her father; Mental illness in her brother; Schizophrenia in her brother; maker in her mother. OBJECTIVE: Visit Vitals BP (!) 180/100 (BP Location: Right arm, Patient Position: Sitting, BP Cuff Size: Large adult) Pulse 50 Temp 98.3 F (Temporal) Resp 20 Wt 239 lb 3.2 oz SpO2 95% BMI 43.75 kg/m Smoking Status Former BSA 2.18 m Physical Exam Vitals and nursing note reviewed. Constitutional: General: She is not in acute distress. Appearance: Normal appearance. HENT: Head: Normocephalic and atraumatic. Right Ear: External ear normal. Left Ear: External ear normal. Nose: Nose normal. Mouth/Throat: Mouth: Mucous membranes are moist. Eyes: Extraocular Movements: Extraocular movements intact. Conjunctiva/sclera: Conjunctivae normal. Neck: Vascular: No carotid bruit. Cardiovascular: Rate and Rhythm: Normal rate and regular rhythm. Pulses: Normal pulses. Heart sounds: Normal heart sounds. Pulmonary: Effort: Pulmonary effort is normal. Breath sounds: Normal breath sounds. No wheezing or rhonchi. Abdominal: General: Bowel sounds are normal. There is no distension. Palpations: Abdomen is soft. There is no mass. Tenderness: There is no abdominal tenderness. Musculoskeletal: General: Normal range of motion. Cervical back: Normal range of motion and neck supple. Right lower leg: No edema. Left lower leg: No edema. Lymphadenopathy: Cervical: No cervical adenopathy. Skin: General: Skin is warm and dry. Capillary Refill: Capillary refill takes 2 to 3 seconds. Findings: No rash. Neurological: General: No focal deficit present. Mental Status: She is alert and oriented to person, place, and time. Psychiatric: Mood and Affect: Mood normal. Behavior: Behavior normal. Thought Content: Thought content normal. Judgment: Judgment normal. ASSESSMENT AND PLAN: No follow-ups on file. Problem List Items Addressed This Visit Primary hypertension (CMS/HCC) Please check blood pressure daily and record DASH diet Limit caffeine Take medication as directed Contact office if chest pain, pressure, dizziness, shortness of breath, swelling legs Recommend slow position changes Current meds: b yakov Relevant Medications metoprolol succinate XL (Toprol-XL) 25 MG 24 hr tablet Hypothyroidism, unspecified (CMS/HCC) Current meds: levothyroxine Check labs yearly and prn dose changes or changes in sxs Relevant Medications levothyroxine (Synthroid, Levoxyl) 88 MCG tablet Mixed hyperlipidemia (CMS/HCC) On statin therapy Check labs yearly and prn dose changes Relevant Medications pravastatin (Pravachol) 10 MG tablet Heart palpitations - Primary Current medication: metoprolol XL 75mg daily Relevant Medications metoprolol succinate XL (Toprol-XL) 25 MG 24 hr tablet Morbid (severe) obesity due to excess calories (CMS/HCC) Discussed with patient their BMI (actual, verses recommended). We have also discussed lifestyle modifications: attempts to perform physical activity as chronic conditions allow, also to monitor dietary intake: increasing protein/fruits/veggies and lowering carb intake (unless contraindicated). Limit sodas, juices, and sugary drinks. Body mass index (BMI) 40.0-44.9, adult (CMS/HCC) Encounter for screening mammogram for malignant neoplasm of breast declines Colon cancer screening Declines wanting to get this done RESOLVED: Cigarette nicotine dependence without complication Yeast dermatitis Relevant Medications nystatin (Mycostatin) cream Associated Problem(s): Mixed hyperlipidemia (CMS/HCC) On statin therapy Check labs yearly and prn dose changes Associated Problem(s): Morbid (severe) obesity due to excess calories (CMS/HCC) Discussed with patient their BMI (actual, verses recommended). We have also discussed lifestyle modifications: attempts to perform physical activity as chronic conditions allow, also to monitor dietary intake: increasing protein/fruits/veggies and lowering carb intake (unless contraindicated). Limit sodas, juices, and sugary drinks. In the last year has lost 14 pounds Has a job that moves more now Associated Problem(s): Hypothyroidism, unspecified (CMS/HCC) Current meds: levothyroxine Check labs yearly and prn dose changes or changes in sxs Associated Problem(s): Primary hypertension (CMS/HCC) Please check blood pressure daily and record DASH diet Limit caffeine Take medication as directed Contact office if chest pain, pressure, dizziness, shortness of breath, swelling legs Recommend slow position changes Current meds: b yakov Did not eat, this morning Check twice a day Fu in 3 weeks bring log book Associated Problem(s): Heart palpitations Current medication: metoprolol XL 75mg daily Was feeling like break through palpitations in night when was taking the 25mg dose She increased to 50mg BID which resolved the palpitations She would like to continue Cannot tolerate entire dose at once, causes abd pain and nausea documented in this encounter [facility] 06-18-2024 Instructions Chen Morley NP - 06/18/2024 9:00 AM EDT Get labs completed Check blood pressure twice a day and record and bring bp machine with you to next appt documented in this encounter [facility] 12-19-2023 History of Presen t illness Narrative Nystatin lotion needs a refill Tube is running out. Images from the original note were not included. Angelica Ibrahim is a 58 y.o. female presents with chief complaint of No chief complaint on file. HPI: Thyroid Problem Presents for follow-up visit. Symptoms include palpitations. Patient reports no anxiety, depressed mood, diaphoresis, fatigue, hair loss, heat intolerance, hoarse voice, leg swelling, menstrual problem, weight gain or weight loss. The symptoms have been stable. Palpitations This is a chronic problem. The current episode started more than 1 year ago. The problem occurs intermittently. The problem has been unchanged. Nothing aggravates the symptoms. Pertinent negatives include no anxiety, chest pain, coughing, diaphoresis, dizziness, irregular heartbeat, malaise/fatigue or shortness of breath. She has tried beta blockers for the symptoms. The treatment provided significant relief. There are no known risk factors. SUBJECTIVE: MEDICATIONS: Current Outpatient Medications Medication Instructions albuterol HFA 90 mcg/act inhaler 2 puffs, Inhalation, Every 6 hours PRN ibuprofen 400 mg, Oral, Every 8 hours PRN levothyroxine (SYNTHROID, LEVOXYL) 88 mcg, Oral, Daily before breakfast metoprolol succinate XL (TOPROL-XL) 75 mg, Oral, Daily, Do not crush or chew. pravastatin (PRAVACHOL) 10 mg, Oral, Nightly, Take 10 mg by mouth at bedtime ALLERGIES: No Known Allergies REVIEW OF SYMPTOMS: Review of Systems Constitutional: Negative for diaphoresis, fatigue, malaise/fatigue, weight gain and weight loss. HENT: Negative for hoarse voice. Respiratory: Negative for cough and shortness of breath. Cardiovascular: Positive for palpitations. Negative for chest pain. Genitourinary: Negative for menstrual problem. Neurological: Negative for dizziness. Psychiatric/Behavioral: The patient is not nervous/anxious. Endocrine: Negative for heat intolerance. PAST MEDICAL HISTORY Past Medical History: Diagnosis Date Acute left flank pain Acute non-recurrent maxillary sinusitis 02/21/2023 Anxiety and depression (CMS/HCC) Diverticulitis Dyspnea Encephalitis Heart palpitations History of hernia repair Hyperlipidemia (CMS/HCC) Hypertension (CMS/HCC) Hypothyroidism (CMS/HCC) Incisional hernia LLQ pain Rectal bleeding Rectal discharge Right foot pain Past Surgical History: Procedure Laterality Date CT GUIDED CRYOABLATION RENAL RIGHT Right 11/20/2020 CT GUIDED CRYOABLATION RENAL RIGHT 11/20/2020 HERNIA REPAIR Triple TUBAL LIGATION family history includes ALS in her mother; Atrial fibrillation in her father; Bipolar disorder in her brother; Cancer in her father; Coronary artery disease in her mother; Heart disease in her father and mother; Hyperlipidemia in her mother; Hypertension in her mother; Hypothyroidism in her father; Low circulation in legs in her father; Mental illness in her brother; Schizophrenia in her brother; maker in her mother. OBJECTIVE: Visit Vitals BP 160/80 (BP Location: Left arm, Patient Position: Sitting, BP Cuff Size: Adult long) Pulse 66 Temp 98.7 F (Temporal) Resp 18 Ht 5' 2 Wt 243 lb 6.4 oz SpO2 93% BMI 44.52 kg/m Smoking Status Former BSA 2.19 m Physical Exam Vitals and nursing note reviewed. Constitutional: General: She is not in acute distress. Appearance: Normal appearance. HENT: Head: Normocephalic and atraumatic. Right Ear: External ear normal. Left Ear: External ear normal. Nose: Nose normal. Mouth/Throat: Mouth: Mucous membranes are moist. Eyes: Extraocular Movements: Extraocular movements intact. Conjunctiva/sclera: Conjunctivae normal. Neck: Vascular: No carotid bruit. Cardiovascular: Rate and Rhythm: Normal rate and regular rhythm. Pulses: Normal pulses. Heart sounds: Normal heart sounds. Pulmonary: Effort: Pulmonary effort is normal. Breath sounds: Normal breath sounds. Abdominal: General: Bowel sounds are normal. There is no distension. Palpations: Abdomen is soft. There is no mass. Tenderness: There is no abdominal tenderness. Musculoskeletal: General: Normal range of motion. Cervical back: Normal range of motion and neck supple. Right lower leg: No edema. Left lower leg: No edema. Lymphadenopathy: Cervical: No cervical adenopathy. Skin: General: Skin is warm and dry. Capillary Refill: Capillary refill takes 2 to 3 seconds. Findings: No rash. Neurological: General: No focal deficit present. Mental Status: She is alert and oriented to person, place, and time. Psychiatric: Mood and Affect: Mood normal. Behavior: Behavior normal. Thought Content: Thought content normal. Judgment: Judgment normal. ASSESSMENT AND PLAN: No follow-ups on file. Problem List Items Addressed This Visit Primary hypertension (CMS/HCC) - Primary Relevant Medications metoprolol succinate XL (Toprol-XL) 25 MG 24 hr tablet Other Relevant Orders Comprehensive metabolic panel Urinalysis with reflex microscopic (clean catch) Microalbumin / creatinine, urine ratio Hypothyroidism, unspecified (CMS/HCC) Relevant Medications levothyroxine (Synthroid, Levoxyl) 88 MCG tablet Mixed hyperlipidemia (CMS/HCC) Relevant Medications pravastatin (Pravachol) 10 MG tablet Other Relevant Orders Comprehensive metabolic panel Lipid panel Heart palpitations Morbid (severe) obesity due to excess calories (CMS/HCC) Body mass index (BMI) 45.0-49.9, adult (CMS/HCC) documented in this encounter [facility] 12-26-2020 Note It is ok to slowly a dd foods back to your diet. Slowly increase your activity but no heavy lifting for an additional 2 weeks. Please contact my administrative sales assistant Frances at if you have any questions or concerns. [facility]2020 Note DISCHARGE SUMMARY [place] [id number] Angelica Ibrahim Date of : 1965 55 year old [...] the PACU before being transferred to a [facility] ??? Patient had a KAMI drain placed during surgery which was removed on 12/14/20 prior to discharge. ??? Patient's castaneda was removed on POD#3 and patient voided [...] Ba[place] PA-C. Angelique Kimbrough PA-C 12/14/20 [employer] 12-13-2020 Note PHYSICAL THERAPY PRO OMKAR [...] Dep Max Mod Min CG CS DS FL I Comment Sit to/from stand x Walking [...] With Patients permission ordered no equipment via Pressy Order. If any questions contact [facility] DME Provider at [phone]. 7 Clicks Basic Mobility PT 12/13/2020 Difficulty turning [...] Continue with plan per Initial Evaluation Laura Catsro [facility] B# [phone] NA = Not Assessed, I = Independent, FL = Modified Independent, Sup = Supervised, Set up = Physical Assistance for Set-up Only, Min = Minimal Assistance, Mod = Moderate Assistance, Max = Maximal assistance; Dep = Dependent; AROM = Active Range of Motion; PROM = Passive Range of Motion; MMT = Manual Muscle Test [employer] 12-10-2020 Note PHYSICAL THERAPY ACU TE [...] Aliza. 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 Ramp to enter. 0 steps to bedroom/bathroom. Assistance available: PRN (works) Equipment available: shower seat, raised toilet OBJECTIVE: Appearance: Supine in bed with HOB slightly raised upon arrival, hospital gown, Obese, PIV, KAMI drain, castaneda, A-line Behavior: Awake, pleasant and cooperative, agreeable [...] With Patients permission ordered no equipment via Pressy Order. If any questions contact [facility] DME Provider at [phone]. 6 Clicks Basic Mobility PT 12/10/2020 Difficulty turning [...] Can use assistive devices. ??? ASSESSMENT: Angelica Ibrahim is a 55 year old yo female who is currently hospitalized secondary to Diverticulitis of large intestine with abscess without bleeding. Patient is currently functioning near reported baseline of independent without assistive device, requiring supervision assistance for functional mobility tasks without assistive device this date. (more content not included)... [employer] 12-10-2020 Note OCCUPATIONAL THERAPY INITIAL EVALUATION [...] Date * HERNIA REPAIR 2015 triple surgery SUBJECTIVE: Patient Subjective: Let's go around again. Patient enjoyed walking in [place]. 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 Independent Driving Independent Ambulation without assistive device Independent with Instrumental Activities of Daily Living Assistance Available at Home: Lives with who works maitre d'. Patient lives in a 1 story home [...] Appearance: hospital gown, Obese, PIV, KAMI drain, castaneda, A-line Alertness: WFL Affect: WNL Cooperation/Behavior: Appropriate dialogue with therapist and Pleasant and cooperative Communication: WFL Pain: Pain ratin/10, Location: abdomen Pain Relief Interventions Implemented: Rest Self Care: Assistance Level NA Dep Max Mod Min CG CS DS FL I Set-Up Comment Feeding x Grooming/Hygiene x Bathing:UB x Bathing:LB x Dressing:UB x Dressing: LB x Toileting x (+) castaneda Transfers/Bed Mobility: Assistance Level NA Dep Max Mod Min CG CS DS FL I Set-Up Comment Toilet Transfers x Bed [...] With Patients permission ordered no equipment via Pressy Order. If any questions contact [facility] DME Provider at [phone]. Progressive Mobility Level: 4 6 Clicks Daily [...] Guard Assist/Supervision 4 - Non = Modified [place]/Independent ASSESSMENT: Patient is functionally appropriate for discharge home once medically cleared. No further Occupational Therapy Services reccommended at this time. PLAN: Angelica Ibrahim is discharged from acute care OT services. Able to discuss the evaluation findings and treatment plan with the patient/family. The patient/family did participate in the development of plan and goals. Maria Isabel Daly, OTR/L NA = Not Assessed, I = Independent, FL = Modified Independent, Sup = Supervised, Set up = Physical Assistance for Set-up Only, Min = Minimal Assistance, Mod = Moderate Assistance, Max = Max assistance; Dep = Dependent; AROM = Active Range of Motion;PROM=Passive Range of Motion; MMT = Manual Muscle Test; UB = Upper Body; LB = Lower Body [employer] 12-09-2020 Note Surgical Attestation : I have reviewed the patient's History and Physical Examination. I have personally seen and evaluated the patient, repeating reese portions. There is no significant interval change. Surgery is still indicated. Yes Consent reviewed and signed by patient/family: Yes Operative site verified and marked: BOUBACAR Gonzalez MD [employer] [facility] 12-03-2020 Note PT EDUCATION ERAS Protocol [...] AND CONCERNS: Pre-surgical evaluation 3 pm today [phone] Marylin Starks BSN,RN,CCRN,CMSRN [phone] General Surgery Clinical Coordinator to: Yudy Cardona MD, MS, FACS, FASCRS Colorectal Surgery Bruce Israel MD Colorectal AND General Surgery [facility] 11-21-2020 Note DISCHARGE SUMMARY [place] [id number] Angelica Ibrahim Date of : 1965 55 year old female Attending Yudy Cardona MD Date of Admission 11/19/2020 Date of Discharge 11/21/2020 [Principal Hospital Problem (Final Diagnosis)] Abscess of sigmoid colon due to diverticulitis No discharge procedures on file. Future Appointments Date Time Provider Department Center 12/03/2020 1:00 PM Yudy Cardona MD [facility] GEN SURG [facility] Condition at Discharge Improved Activity No [...] perforation and abscess. Pt was admitted to [facility], made NPO, started on IV Zosyn, [...] and addended by Anisa Matamoros PA-C [employer] 11-20-2020 Note EXAMINATION: CT ABSC ESS [...] sterile fashion. Under CT guidance, a 5 [place]an Yueh catheter was advanced into the pelvic collection via an anterior approach. A 0.035 Amplatz wire was advanced through the catheter, with subsequent removal of the catheter and serial dilatations over the wire. A 10 [place]ankan drainage catheter was then advanced over the [...] IMPRESSION: Technically successful placement of a 10 [place]ankan pigtail catheter into the pelvic abscess. MACRO: None [employer] [facility] 11-20-2020 Note POST- PROCEDURE NOTE Pre-procedure [...] the procedure Eitan Coon DO Radiology [employer] [facility] 11-20-2020 Note MODIFIED HISTORY AND PHYSICAL: [...] 650 mg Oral q6h 650 mg at 11/20/20907 Allergies: Patient has no known allergies. PHYSICAL [...] Directives (Living will, health care power of trademark attorney): none Code Status For This Procedure: Full Code Eitan Coon DO Radiology [employer] [facility] 11-20-2020 Note 11/20/20 1300 Assessment and [...] follow for any discharge needs. Yamilet Connolly RNwomen's ministry director [phone] (Phone) Hours 7:30 am to 4pm [employer] [facility] 11-20-2020 Note PHYSICAL THERAPY ACU TE [...] PSH: Ventral hernia surgery with mesh in 2014, laparoscopic tubal ligation when she was 23 years old Identification was verified by patient verbalizing his/her name and date of . Risks and Benefits of physical therapy: Patient informed of risks and benefits of treatment SUBJECTIVE: Patient Subjective: I drove here and I better be driving home Re: prior level of function Patient Identified Goal(s):To go home BONSAI TENDER Status: Ind for ambulation, stair negotiation, ADLs [...] With Patients permission ordered no equipment via Pressy Order. [facility] [phone]. 1 Clicks Basic Mobility PT 11/20/2020 Difficulty turning [...] Can use assistive devices. ??? ASSESSMENT: Angelica Ibrahim is a 55 year old yo female [...] NA = Not Assessed, I = Independent, FL = Modified Independent, Sup = Supervised, Set up = Physical Assistance for Set-up Only, Min = Minimal Assistance, Mod = Moderate Assistance, Max = Max assistance; Dep = Dependent; AROM = Active Range of Motion; PROM = Passive Range of Motion; MMT = Manual Muscle Test; LE = Lower Extremity [employer] 11-20-2020 Note OCCUPATIONAL THERAPY INITIAL EVALUATION [...] Dep Max Mod Min CG CS DS FL I Set-Up Comment Feeding x Anticipated; pt currently NPO Grooming/Hygiene x Bathing:UB x Bathing:LB x Dressing:UB x Dressing: LB x Toileting x Transfers/Bed Mobility: Assistance Level Dep Max Mod Min CG CS DS FL I Set-Up Comment Toilet Transfers x Bed [...] With Patients permission ordered no equipment via Pressy Order. If any questions contact [facility] DME Provider at [phone]. ??? 6 Clicks Daily Activity OT 11/20/2020 [...] Guard Assist/Supervision 4 - Non = Modified [place]/Independent ASSESSMENT: Patient is functionally appropriate for discharge home once medically cleared. No further Occupational Therapy Services reccommended at this time. PLAN: Angelica Ibrahim will be d/c from acute OT services able to discuss the evaluation findings and treatment plan with the patient/family. Calli Graham OT/L b. [phone] NA = Not Assessed, I = Independent, FL = Modified Independent, Sup = Supervised, Set up = Physical Assistance for Set-up Only, Min = Minimal Assistance, Mod = Moderate Assistance, Max = Max assistance; Dep = Dependent; AROM = Active Range of Motion;PROM=Passive Range of Motion; MMT = Manual Muscle Test; UB = Upper Body; LB = Lower Body [facility] Evaluation note Diagnosis Mixed hyperlipidemia (CMS/HCC) Mixed hyperlipidemia documented in this encounter [facility] Diagnosis Primary hypertension (CMS/HCC)- Primary Unspecified essential hypertension Morbid (severe) obesity due to excess calories (CMS/HCC) Body mass index (BMI) 45.0-49.9, adult (CMS/HCC) Mixed hyperlipidemia (CMS/HCC) Mixed hyperlipidemia Hypothyroidism (acquired) (CMS/HCC) Unspecified hypothyroidism Heart palpitations Palpitations Hypothyroidism, unspecified (CMS/HCC) documented in this encounter [facility] HealthcareEvaluation note* Diagnosis Heart palpitations- Primary Palpitations Primary hypertension (CMS/HCC) Unspecified essential hypertension Hypothyroidism (acquired) (CMS/HCC) Unspecified hypothyroidism Mixed hyperlipidemia (CMS/HCC) Mixed hyperlipidemia Hypothyroidism, unspecified Hypothyroidism (CMS/HCC) Unspecified hypothyroidism Palpitations Primary hypertension (CMS/HCC)- Primary Unspecified essential hypertension Morbid (severe) obesity due to excess calories (CMS/HCC) Body mass index (BMI) 40.0-44.9, adult (CMS/HCC) Heart palpitations Palpitations Acquired hypothyroidism (CMS/HCC) Unspecified hypothyroidism Mixed hyperlipidemia (CMS/HCC) Mixed hyperlipidemia Encounter for screening mammogram for malignant neoplasm of breast Colon cancer screening Special screening for malignant neoplasms, colon Cigarette nicotine dependence without complication Hypothyroidism, unspecified Yeast dermatitis documented in this encounter [facility] Healthcare Summary Purpose Family History No Family History Records FoundNo Family History Records FoundNo Family History Records FoundNo Family History Records Found Advance Directives No Advanced Directives Records FoundNo Advanced Directives Records FoundNo Advanced Directives Records FoundNo Advanced Directives Records Found Reason for Referral Specialty Diagnoses / Procedures Referred By Contac t Referred To Contact Diagnoses Mixed hyperlipidemia (CMS/HCC) Chen Morley NP [address] [place] [address] Referral ID Status Reason Start Date Expiration Date V isits Requested Visits Authorized [id number] Pending Review 12/21/2023 06/18/2024 1 1 Referral ID Status Reason Start Date Expiration Date V isits Requested Visits Authorized [id number] Pending Review 1 1 Additional Source Comments INFORMATION SOURCE (unrecogn ized section and content) DATE CREATED AUTHOR 12/07/2020 [facility] DATE CREATED AUTHOR AUTHOR'S ORGANIZ ATION 04/28/2021 [employer] DATE CREATED AUTHOR AUTHOR'S ORGANIZ ATION 02/20/2022 [facility] pital DATE CREATED AUTHOR AUTHOR'S ORGANIZ ATION 12/20/2023 [facility] Care Teams (unrecognized sec tion and content) Senior Insight Manager Relationship Specialty Start Date End Date Goyo Mixon MD [address] [place] [address] [place] [address] PCP - General Family Medicine 06/16/23 Chen Morley, TRANSMISSION ENGINEER [address] [place] [address] [place] [address] PCP - [employer] 07/20/23 Chen Morley NP [address] [place] [address] [place] [phone] Nurse Practitioner Family Medicine 11/19/22 Chen Morley NP [address] [place] [address] [place] [address] Nurse Practitioner Family Medicine 06/16/23 Senior Insight Manager Relationship Specialty Start Date End Date Goyo Mixon MD [address] [place] [address] [place] [phone] PCP - General Family Medicine 06/16/23 Chen Morley NP [address] [place] [address] [place] [address] PCP - [employer] 07/20/23 Chen Morley NP [address] [place] [address] [place] [address] Nurse Practitioner Family Medicine 11/19/22 Chen Morley NP [address] [place] [address] [place] [address] Nurse Practitioner Family Medicine 06/16/23 Senior Insight Manager Relationship Specialty Start Date End Date Goyo Mixon MD [address] [place] [address] [place] [phone] PCP - General Family Medicine 06/16/23 Chen Morley NP [address] [place] [address] [place] [address] PCP - [employer] 07/20/23 Chen Morley NP [address] [place] [address] [place] [address] Nurse Practitioner Family Medicine 11/19/22 Chen Morley NP [address] [place] [address] [place] [address] Nurse Practitioner Family Medicine 06/16/23 Senior Insight Manager Relationship Specialty Start Date End Date Goyo Mixon MD [address] [place] [address] [place] [address] PCP - General Family Medicine 06/16/23 Chen Morley NP [address] [place] [address] [place] [address] PCP - [employer] 07/20/23 Chen Morley NP [address] [place] [address] [place] [address] Nurse Practitioner Family Medicine 11/19/22 Chen Morley NP [address] [place] [address] [place] [address] Nurse Practitioner Family Medicine 06/16/23 Senior Insight Manager Relationship Specialty Start Date End Date Goyo Mixon MD [address] [place] [address] [place] [phone] PCP - General Family Medicine 06/16/23 Chen Morley NP [address] [place] [address] [place] [address] PCP - [employer] 07/20/23 Chen Morley NP [address] [place] [address] [place] [address] Nurse Practitioner Family Medicine 11/19/22 Chen Morley NP [address] [place] [address] [place] [address] Nurse Practitioner Family Medicine 06/16/23 Senior Insight Manager Relationship Specialty Start Date End Date Goyo Mixon MD [address] [place] [address] [place] [address] PCP - General Family Medicine 06/16/23 Chen Morley NP [address] [place] [address] [place] [address] PCP - [employer] 07/20/23 Chen Morley NP [address] [place] [address] [place] [address] Nurse Practitioner Family Medicine 11/19/22 Chen Morley NP [address] [place] [address] [place] [address] Nurse Practitioner Family Medicine 06/16/23 FOR RECORDS PERTAINING TO PATIENTS WHO ARE [...] BE BASED ON THE PRIMARY CLINICAL RECORDS. [facility]. provides no warranty or guarantee of the accuracy or completeness of information in this document.
[2024-06-18 11:20] LABS: Alanine Aminotransferase 19 U/L (14-59); Albumin Level 3.7 g/dL (3.4-5.0); Alkaline Phosphatase 78 U/L (46-116); Anion Gap 11.8; Aspartate Amino Transferase 18 U/L (15-37); BUN Creatinine Ratio 12.2; Bilirubin Total 0.4 mg/dL (0.2-1.0); Calcium 8.9 mg/dL (8.5-10.1); Carbon Dioxide 28.5 mmol/L (21.0-32.0); Chloride 107 mmol/L (98-107); Chol HDL Ratio 3.2; Cholesterol 186 mg/dL (<=200); Estimated GFR (African America >60 (>=60 mL/min/1.73m^2); Estimated GFR (Non-African Ame >60 (>=60 mL/min/1.73m^2); Globulin 3.6 g/dL; Glucose 97 mg/dL (74-106); HDL Cholesterol 59 mg/dL (40-60); LDL Cholesterol Calculated 100.2 mg/dL; Potassium 4.3 mmol/L (3.5-5.1); Sodium 143 mmol/L (136-145); Thyroid Stimulating Hormone 2.038 uIU/mL (0.358-3.740); Total Protein 7.3 g/dL (6.4-8.2); Triglycerides 134 mg/dL (<=150); VLDL CHOLESTEROL 26.8 mg/dL
[2024-06-18 12:31] LABS: Free T4 1.11 ng/dL (0.76-1.46)
== END 2024-06-18 10:22 | disposition home or self-care (01) ==
LOC: LAB 10:22
PROVIDERS: PCP Nurse Practitioner; Visit Provider Nurse Practitioner
DX: E03.9 Hypothyroidism, unspecified (principal); E78.2 Mixed hyperlipidemia; I10 Essential (primary) hypertension
CPT/HCPCS: 36415; 80053; 80061; 84439; 84443